=== PATIENT | female | born 1960 | race Caucasian/White ===

== ENCOUNTER 2017-03-10 18:02 | Inpatient (IN) | payer OTHER ==
[~2017-03-10] VITALS: Ht 152.4 cm; Wt 81.6 kg
--- NOTE | 2017-03-10 20:22 | PHYS DOC ---
Past Medical History Past Medical History: Diabetes-Type II, High Cholesterol, Hypertension, Other Additional Past Medical Histor: cataracts Past Surgical History: No Surgical History Alcohol Use: None Drug Use: None Adult General Chief Complaint Chief Complaint: NEURO SYMPTOMS/DEFICITS HPI HPI Patient is a 56 year old F who presents with shaking to the right upper extremity. Patient states that Friday night she started having muscle spasms and shaking to just her right upper extremity. Patient denies a seizure history. Patient states she is not lose consciousness was happens. Patient has no other complaints. Friday the symptoms got better. Patient states the spasming and shaking lasted for less than a couple minutes happen 4-5 times a day. I witnessed an episode in the emergency room that lasted less than 1 minute and the right upper shoulder many was having myoclonic jerking. Patient denies any chest pain or shortness of breath. Patient has no other symptoms. Patient denies any fevers. Review of Systems Review of Systems GEN: Denies fevers, chills, sweats HEENT: Denies blurred vision, sore throat CV: Denies chest pain RESP: Denies shortness of air, cough GI: Denies n/v/d NEURO: Denies confusion, dizziness MSK: Right upper extremity shaking Current Medications Current Medications Current Medications Medications (Trade) Dose Ordered Sig/[place] Start Time Stop Time Status Last Admin Dose Admin Lidocaine/Sodium Bicarbonate (Buffered Lidocaine 1%) 20 ml 1X ONCE 03/10/17 21:15 03/10/17 21:16 DC 03/10/17 21:15 20 ML Allergies Allergies Allergies Coded Allergies Type Severity Reaction Last Updated Verified codeine Allergy Intermediate 03/10/17 Yes Uncoded Allergies Type Severity Reaction Last Updated Verified chocolate Allergy Unknown 03/10/17 Physical Exam Physical Exam GEN.: No apparent distress. Alert and oriented. HEENT: Head is normocephalic, atraumatic NECK: Supple. LUNGS: CTAB. HEART: RRR, S1, S2 present. Peripheral pulses intact ABDOMEN: Soft, nontender. Positive bowel sounds, abscess to the left flank EXTREMITIES: Without any cyanosis. NEUROLOGIC: Normal speech, normal tone, cranial nerves II through XII are grossly intact without any focal neurological deficits, finger to nose normal bilaterally, heel to martell normal bilaterally PSYCHIATRIC: Normal affect, normal mood. SKIN: No ulcerations Current Patient Data Vital Signs Vital Signs Date Time Temp Pulse Resp B/P (MAP) Pulse Ox O2 Delivery O2 Flow Rate FiO2 03/10/17 21:16 64 19 201/87 (125) 96 Room Air 03/10/17 18:46 98.0 98.0 Lab Values Laboratory Tests Test 03/10/17 19:57 White Blood Count 6.6 x10^3/uL (4.0-11.0) Red Blood Count 3.73 x10^6/uL (3.50-5.40) Hemoglobin 9.9 g/dL (12.0-15.5) L Hematocrit 30.7 % (36.0-47.0) L Mean Corpuscular Volume 82 fL (79-100) Mean Corpuscular Hemoglobin 27 pg (25-35) Mean Corpuscular Hemoglobin Concent 32 g/dL (31-37) Red Cell Distribution Width 14.9 % (11.5-14.5) H Platelet Count 471 x10^3/uL (140-400) H Neutrophils (%) (Auto) 71 % (31-73) Lymphocytes (%) (Auto) 22 % (24-48) L Monocytes (%) (Auto) 4 % (0-9) Eosinophils (%) (Auto) 2 % (0-3) Basophils (%) (Auto) 1 % (0-3) Neutrophils # (Auto) 4.7 x10^3uL (1.8-7.7) Lymphocytes # (Auto) 1.4 x10^3/uL (1.0-4.8) Monocytes # (Auto) 0.3 x10^3/uL (0.0-1.1) Eosinophils # (Auto) 0.2 x10^3/uL (0.0-0.7) Basophils # (Auto) 0.1 x10^3/uL (0.0-0.2) Sodium Level 129 mmol/L (136-145) L Potassium Level 3.3 mmol/L (3.5-5.1) L Chloride Level 95 mmol/L (98-107) L Carbon Dioxide Level 24 mmol/L (21-32) Anion Gap 10 (6-14) Blood Urea Nitrogen 22 mg/dL (7-20) H Creatinine 2.5 mg/dL (0.6-1.0) H Estimated GFR (Cockcroft-Gault) 20.0 BUN/Creatinine Ratio 9 (6-20) Glucose Level 778 mg/dL (70-99) *H Calcium Level 8.1 mg/dL (8.5-10.1) L Total Bilirubin 0.2 mg/dL (0.2-1.0) Aspartate Amino Transferase (AST) 7 U/L (15-37) L Alanine Aminotransferase (ALT) 11 U/L (14-59) L Alkaline Phosphatase 191 U/L (46-116) H Total Protein 7.3 g/dL (6.4-8.2) Albumin 2.1 g/dL (3.4-5.0) L Albumin/Globulin Ratio 0.4 (1.0-1.7) L Ethyl Alcohol Level < 10 mg/dL (0-10) Laboratory Tests 03/10/17 19:57 Laboratory Tests 03/10/17 19:57 EKG EKG 2050: EKG shows normal sinus rhythm rate is 63 no STEMI[] Radiology/Procedures Radiology/Procedures CT scan of the head is negative Indication: abscess Procedure: The patient was positioned appropriately. Local anesthesia was 1% lidocaine approximately 5 ML's. An incision was then made over the apex of the lesion and purulent drainage material was expressed. The drainage cavity was irrigated. The patients tetanus status updated as needed. The patient tolerated the procedure well. Complications: none.[] Course & Med Decision Making Course & Med Decision Making Pertinent Labs and Imaging studies reviewed. (See chart for details) ED course: Patient was seen and examined emergency room CBC, CMP, troponin, CT scan of head , EKG were ordered, UA 2100: Patient was updated on lab results and plan to admit for the elevated glucose and the abscess will be I&D 2114: Discussed CC/HP/PMH with Dr. Davis and recommends admit [] 2199: I&D done at bedside MDM: After reviewing the chart, CC/HPI/PMH, physical exam, [lab results], [ radiological results], I do not believe the patient is in DKA however has elevated blood sugars requiring admission the hospital. We'll bring on the blood sugar with IV fluids. Patient had a bedside I&D done for an abscess to her left flank. She'll be started on oral Bactrim for the abscess. [] Dragon Disclaimer Dragon Disclaimer This electronic medical record was generated, in whole or in part, using a voice recognition dictation system. Departure Departure Impression: Primary Impression: Hyperglycemia Additional Impressions: Acute renal failure Skin abscess Disposition: 09 ADMITTED INPATIENT Admitting Physician: Marian Rosales Condition: STABLE Referrals: MARIAN ROSALES MD (PCP) Problem Qualifiers SHANNAN MOYER DO Mar 10, 2017 20:22
[2017-03-10 20:24] LABS: BASO # 0.1 x10^3/uL (0.0-0.2); BASO % 1 % (0-3); EOS % 2 % (0-3); HEMATOCRIT 30.7 % (36.0-47.0); HEMOGLOBIN 9.9 g/dL (12.0-15.5); LYMPH # 1.4 x10^3/uL (1.0-4.8); LYMPH % 22 % (24-48); MEAN CORPUSCULAR HEMOGLOBIN 27 pg (25-35); MEAN CORPUSCULAR HGB CONC 32 g/dL (31-37); MEAN CORPUSCULAR VOLUME 82 fL (79-100); MONO % 4 % (0-9); NEUT % 71 % (31-73); PLATELET COUNT 471 x10^3/uL (140-400); RED BLOOD COUNT 3.73 x10^6/uL (3.50-5.40); RED CELL DISTRIBUTION WIDTH 14.9 % (11.5-14.5); WHITE BLOOD COUNT 6.6 x10^3/uL (4.0-11.0)
--- NOTE | 2017-03-10 20:47 | RAD ---
Indication: Hypertension, shaking Technique: Noncontrast CT head was obtained. No comparison is available. One or more of the following individualized dose reduction techniques were utilized for this examination: 1. Automated exposure control 2. Adjustment of the mA and/or kV according to patient size 3. Use of iterative reconstruction technique Findings: The ventricles and sulci are within normal limits for age. There is no acute intracranial hemorrhage or extra-axial fluid collection. There is no mass effect or midline shift. Wright-white differentiation is preserved. Vascular calcifications are noted. There is opacification of the left frontal sinus. IMPRESSION: No acute intracranial findings. Electronically signed by: Nathaniel Boudreaux MD (03/10/2017 8:44 PM) [facility]
[2017-03-10 20:49] LABS: ALBUMIN 2.1 g/dL (3.4-5.0); ALBUMIN/GLOBULIN RATIO 0.4 (1.0-1.7); CALCIUM 8.1 mg/dL (8.5-10.1); CREATININE 2.5 mg/dL (0.6-1.0); POTASSIUM 3.3 mmol/L (3.5-5.1); TOTAL BILIRUBIN 0.2 mg/dL (0.2-1.0); TOTAL PROTEIN 7.3 g/dL (6.4-8.2)
[2017-03-10] MEDS ORDERED: LIDOCAINE 1% / SOD BICARB 8.4% 20 ML VIAL. IJ ONE (21:15)
[2017-03-10] MEDS ORDERED: MORPHINE SULFATE 4 MG/ML DISP.SYRIN. IV PRN (21:30)
[2017-03-10] MEDS ORDERED: ONDANSETRON PF 4 MG/2 ML VIAL. IV PRN (21:30)
[2017-03-10] MEDS ORDERED: IV NORMAL SALINE 1000ML BAG 1,000 ML IV ONE ×2 (21:30)
[2017-03-10] MEDS ORDERED: SMZ/TMP 800/160MG TABLET. PO ONE (21:30)
[2017-03-10] MEDS ORDERED: ACETAMINOPHEN 325 MG TABLET. PO PRN (21:30)
[2017-03-10] MEDS: IV NORMAL SALINE 1000ML BAG 1,000 ML IV SCH (22:00)
[2017-03-11] VITALS (12 sets, daily range): BP systolic 128–170; BP diastolic 46–72
[2017-03-11] MEDS ORDERED: INSULIN REGULAR VIAL 150 UNIT in 0.9 % SODIUM CHLORIDE 150ML 150 ML IV PRN (00:30)
[2017-03-11] MEDS ORDERED: ATOR40TA59 PO (00:36)
[2017-03-11] MEDS ORDERED: INSU100V31 SQ (00:36)
[2017-03-11] MEDS ORDERED: AMLO10TA2 PO (00:36)
[2017-03-11] MEDS ORDERED: LISI40TA PO (00:36)
[2017-03-11] MEDS ORDERED: ATEN50TA PO (00:36)
[2017-03-11] MEDS ORDERED: INSU100I13 SQ (00:36)
[2017-03-11] MEDS ORDERED: POTASSIUM CHLORIDE 20 MEQ TABLET.ER. PO ONE (00:45)
[2017-03-11] MEDS: IV NORMAL SALINE 1000ML BAG 1,000 ML IV SCH ×5 (03:12→21:32)
--- NOTE | 2017-03-11 07:03 | EKG ---
[facility] [address] [place] [address] Test Date: 2017-03-10 Test Time: 20:46:37 Pat Name: THIEN ESCOBAR Department: Room: [facility] Gender: F Chuck Splitter: : 1960 Requested By: SHANNAN MOYER Order Number: [id number] Reading MD: Albin Washington Measurements Intervals [place] Rate: 63 P: 37 NC: 168 QRS: -24 QRSD: 88 T: 24 QT: 434 QTc: 447 Interpretive Statements SINUS RHYTHM LEFTWARD AXIS R-S TRANSITION ZONE IN V LEADS DISPLACED TO THE LEFT QRS(T) CONTOUR ABNORMALITY CONSIDER ANTEROSEPTAL MYOCARDIAL DAMAGE RI6.01 Unconfirmed report No previous ECG available for comparison Electronically Signed On 03-21-2017 12:36:58 CDT by Albin Washington
[2017-03-11 07:59] LABS: CALCIUM 7.6 mg/dL (8.5-10.1); CREATININE 2.3 mg/dL (0.6-1.0)
[2017-03-11] MEDS: INSULIN ASPART 300 UNITS/3 ML INSULN.PEN SQ SCH ×6 (08:00→17:33)
[2017-03-11] MEDS ORDERED: DEXTROSE 50% 25 GM / 50ML DISP.SYRIN. IV PRN (08:00)
[2017-03-11 08:02] LABS: BASO % 1 % (0-3); EOS % 3 % (0-3); HEMATOCRIT 27.3 % (36.0-47.0); LYMPH # 2.6 x10^3/uL (1.0-4.8); LYMPH % 38 % (24-48); MEAN CORPUSCULAR HEMOGLOBIN 26 pg (25-35); MEAN CORPUSCULAR HGB CONC 33 g/dL (31-37); MEAN CORPUSCULAR VOLUME 80 fL (79-100); MONO % 6 % (0-9); NEUT % 52 % (31-73); PLATELET COUNT 444 x10^3/uL (140-400); RED BLOOD COUNT 3.42 x10^6/uL (3.50-5.40); RED CELL DISTRIBUTION WIDTH 14.8 % (11.5-14.5); WHITE BLOOD COUNT 6.8 x10^3/uL (4.0-11.0)
[2017-03-11 08:07] LABS: POTASSIUM 2.8 mmol/L (3.5-5.1)
--- NOTE | 2017-03-11 10:08 | PDOC ---
PROGRESS NOTES Subjective Subjective Patient reports feeling better than at admission. Objective Objective Vital Signs Date Time Temp Pulse Resp B/P (MAP) Pulse Ox O2 Delivery O2 Flow Rate FiO2 03/11/17 08:00 Room Air 03/11/17 07:21 98.1 59 18 148/66 (93) 95 98.1 Physical Exam Abdomen: Normal bowel sounds, Soft, No tenderness Heart: Regular rate Extremities: No edema General: Alert, Oriented X3, No acute distress Lungs: Clear to auscultation Skin: Other (large abscess left lateral chest wall with purulent drainage) Assessment Assessment Problems Medical Problems: (1) Acute renal failure Status: Acute (2) Hyperglycemia Status: Acute (3) Skin abscess Status: Acute Plan Plan of Care 1. Uncontrolled DM2 - patient's blood sugar was over 700 at admission. States she has not taken her Lantus in 10 days, apparently taking some Novolog but not checking any FSBG. Improved rapidly overnight on insulin gtt, this was stopped and insulins resumed. Follow FSBG and adjust as indicated. 2. abscess left chest wall - present for at least a month. Had small I&D done in ER with some drainage. Culture pending. Suspect she needs more extensive I&D for effective drainage. Zosyn started, General Surgery consulted. 3. acute renal failure - baseline renal function is presently unknown. No previous lab on computer here and patient was new to our office last month and didn't have lab drawn yet. Some improvement overnight with IVF, will continue these and recheck in AM, renal consult if not improved enough. 4. hypokalemia - replace po and follow. 5. HTN - continue home meds except Lisinopril which will be on hold due to acute renal failure. Comment Review of Relevant I have reviewed the following items jerald (where applicable) has been applied. Labs Laboratory Tests Test 03/10/17 19:57 03/11/17 02:06 03/11/17 03:02 03/11/17 04:10 White Blood Count 6.6 x10^3/uL (4.0-11.0) Red Blood Count 3.73 x10^6/uL (3.50-5.40) Hemoglobin 9.9 g/dL (12.0-15.5) Hematocrit 30.7 % (36.0-47.0) Mean Corpuscular Volume 82 fL (79-100) Mean Corpuscular Hemoglobin 27 pg (25-35) Mean Corpuscular Hemoglobin Concent 32 g/dL (31-37) Red Cell Distribution Width 14.9 % (11.5-14.5) Platelet Count 471 x10^3/uL (140-400) Neutrophils (%) (Auto) 71 % (31-73) Lymphocytes (%) (Auto) 22 % (24-48) Monocytes (%) (Auto) 4 % (0-9) Eosinophils (%) (Auto) 2 % (0-3) Basophils (%) (Auto) 1 % (0-3) Neutrophils # (Auto) 4.7 x10^3uL (1.8-7.7) Lymphocytes # (Auto) 1.4 x10^3/uL (1.0-4.8) Monocytes # (Auto) 0.3 x10^3/uL (0.0-1.1) Eosinophils # (Auto) 0.2 x10^3/uL (0.0-0.7) Basophils # (Auto) 0.1 x10^3/uL (0.0-0.2) Sodium Level 129 mmol/L (136-145) Potassium Level 3.3 mmol/L (3.5-5.1) Chloride Level 95 mmol/L (98-107) Carbon Dioxide Level 24 mmol/L (21-32) Anion Gap 10 (6-14) Blood Urea Nitrogen 22 mg/dL (7-20) Creatinine 2.5 mg/dL (0.6-1.0) Estimated GFR (Cockcroft-Gault) 20.0 BUN/Creatinine Ratio 9 (6-20) Glucose Level 778 mg/dL (70-99) Calcium Level 8.1 mg/dL (8.5-10.1) Total Bilirubin 0.2 mg/dL (0.2-1.0) Aspartate Amino Transf (AST/SGOT) 7 U/L (15-37) Alanine Aminotransferase (ALT/SGPT) 11 U/L (14-59) Alkaline Phosphatase 191 U/L (46-116) Total Protein 7.3 g/dL (6.4-8.2) Albumin 2.1 g/dL (3.4-5.0) Albumin/Globulin Ratio 0.4 (1.0-1.7) Ethyl Alcohol Level < 10 mg/dL (0-10) Glucose (Fingerstick) 463 mg/dL (70-99) 503 mg/dL (70-99) 343 mg/dL (70-99) Test 03/11/17 05:10 03/11/17 06:01 03/11/17 06:35 03/11/17 07:05 Glucose (Fingerstick) 233 mg/dL (70-99) 151 mg/dL (70-99) 91 mg/dL (70-99) White Blood Count 6.8 x10^3/uL (4.0-11.0) Red Blood Count 3.42 x10^6/uL (3.50-5.40) Hemoglobin 9.0 g/dL (12.0-15.5) Hematocrit 27.3 % (36.0-47.0) Mean Corpuscular Volume 80 fL (79-100) Mean Corpuscular Hemoglobin 26 pg (25-35) Mean Corpuscular Hemoglobin Concent 33 g/dL (31-37) Red Cell Distribution Width 14.8 % (11.5-14.5) Platelet Count 444 x10^3/uL (140-400) Neutrophils (%) (Auto) 52 % (31-73) Lymphocytes (%) (Auto) 38 % (24-48) Monocytes (%) (Auto) 6 % (0-9) Eosinophils (%) (Auto) 3 % (0-3) Basophils (%) (Auto) 1 % (0-3) Neutrophils # (Auto) 3.6 x10^3uL (1.8-7.7) Lymphocytes # (Auto) 2.6 x10^3/uL (1.0-4.8) Monocytes # (Auto) 0.4 x10^3/uL (0.0-1.1) Eosinophils # (Auto) 0.2 x10^3/uL (0.0-0.7) Basophils # (Auto) 0.0 x10^3/uL (0.0-0.2) Sodium Level 140 mmol/L (136-145) Potassium Level 2.8 mmol/L (3.5-5.1) Chloride Level 107 mmol/L (98-107) Carbon Dioxide Level 23 mmol/L (21-32) Anion Gap 10 (6-14) Blood Urea Nitrogen 20 mg/dL (7-20) Creatinine 2.3 mg/dL (0.6-1.0) Estimated GFR (Cockcroft-Gault) 22.0 Glucose Level 116 mg/dL (70-99) Calcium Level 7.6 mg/dL (8.5-10.1) Laboratory Tests Test 03/10/17 19:57 03/11/17 02:06 03/11/17 03:02 03/11/17 04:10 White Blood Count 6.6 x10^3/uL (4.0-11.0) Red Blood Count 3.73 x10^6/uL (3.50-5.40) Hemoglobin 9.9 g/dL (12.0-15.5) Hematocrit 30.7 % (36.0-47.0) Mean Corpuscular Volume 82 fL (79-100) Mean Corpuscular Hemoglobin 27 pg (25-35) Mean Corpuscular Hemoglobin Concent 32 g/dL (31-37) Red Cell Distribution Width 14.9 % (11.5-14.5) Platelet Count 471 x10^3/uL (140-400) Neutrophils (%) (Auto) 71 % (31-73) Lymphocytes (%) (Auto) 22 % (24-48) Monocytes (%) (Auto) 4 % (0-9) Eosinophils (%) (Auto) 2 % (0-3) Basophils (%) (Auto) 1 % (0-3) Neutrophils # (Auto) 4.7 x10^3uL (1.8-7.7) Lymphocytes # (Auto) 1.4 x10^3/uL (1.0-4.8) Monocytes # (Auto) 0.3 x10^3/uL (0.0-1.1) Eosinophils # (Auto) 0.2 x10^3/uL (0.0-0.7) Basophils # (Auto) 0.1 x10^3/uL (0.0-0.2) Sodium Level 129 mmol/L (136-145) Potassium Level 3.3 mmol/L (3.5-5.1) Chloride Level 95 mmol/L (98-107) Carbon Dioxide Level 24 mmol/L (21-32) Anion Gap 10 (6-14) Blood Urea Nitrogen 22 mg/dL (7-20) Creatinine 2.5 mg/dL (0.6-1.0) Estimated GFR (Cockcroft-Gault) 20.0 BUN/Creatinine Ratio 9 (6-20) Glucose Level 778 mg/dL (70-99) Calcium Level 8.1 mg/dL (8.5-10.1) Total Bilirubin 0.2 mg/dL (0.2-1.0) Aspartate Amino Transf (AST/SGOT) 7 U/L (15-37) Alanine Aminotransferase (ALT/SGPT) 11 U/L (14-59) Alkaline Phosphatase 191 U/L (46-116) Total Protein 7.3 g/dL (6.4-8.2) Albumin 2.1 g/dL (3.4-5.0) Albumin/Globulin Ratio 0.4 (1.0-1.7) Ethyl Alcohol Level < 10 mg/dL (0-10) Glucose (Fingerstick) 463 mg/dL (70-99) 503 mg/dL (70-99) 343 mg/dL (70-99) Test 03/11/17 05:10 03/11/17 06:01 03/11/17 06:35 03/11/17 07:05 Glucose (Fingerstick) 233 mg/dL (70-99) 151 mg/dL (70-99) 91 mg/dL (70-99) White Blood Count 6.8 x10^3/uL (4.0-11.0) Red Blood Count 3.42 x10^6/uL (3.50-5.40) Hemoglobin 9.0 g/dL (12.0-15.5) Hematocrit 27.3 % (36.0-47.0) Mean Corpuscular Volume 80 fL (79-100) Mean Corpuscular Hemoglobin 26 pg (25-35) Mean Corpuscular Hemoglobin Concent 33 g/dL (31-37) Red Cell Distribution Width 14.8 % (11.5-14.5) Platelet Count 444 x10^3/uL (140-400) Neutrophils (%) (Auto) 52 % (31-73) Lymphocytes (%) (Auto) 38 % (24-48) Monocytes (%) (Auto) 6 % (0-9) Eosinophils (%) (Auto) 3 % (0-3) Basophils (%) (Auto) 1 % (0-3) Neutrophils # (Auto) 3.6 x10^3uL (1.8-7.7) Lymphocytes # (Auto) 2.6 x10^3/uL (1.0-4.8) Monocytes # (Auto) 0.4 x10^3/uL (0.0-1.1) Eosinophils # (Auto) 0.2 x10^3/uL (0.0-0.7) Basophils # (Auto) 0.0 x10^3/uL (0.0-0.2) Sodium Level 140 mmol/L (136-145) Potassium Level 2.8 mmol/L (3.5-5.1) Chloride Level 107 mmol/L (98-107) Carbon Dioxide Level 23 mmol/L (21-32) Anion Gap 10 (6-14) Blood Urea Nitrogen 20 mg/dL (7-20) Creatinine 2.3 mg/dL (0.6-1.0) Estimated GFR (Cockcroft-Gault) 22.0 Glucose Level 116 mg/dL (70-99) Calcium Level 7.6 mg/dL (8.5-10.1) Microbiology 03/10/17 Gram Stain - Final, Complete Medications Current Medications Lidocaine/Sodium Bicarbonate (Buffered Lidocaine 1%) 20 ml 1X ONCE IJ Last administered on 03/10/17 21:15; Start 03/10/17 at 21:15; Stop 03/10/17 at 21:16 ; Status DC Trimethoprim/ Sulfamethoxazole (Bactrim Ds) 1 tab ONCE ONCE PO Last administered on 03/10/17 22:00; Start 03/10/17 at 21:30; Stop 03/10/17 at 21:31 ; Status DC Ondansetron HCl (Zofran) 4 mg PRN Q8HRS PRN IV NAUSEA/VOMITING; Start 03/10/17 at 21:30; Stop 03/11/17 at 21:29 Morphine Sulfate 4 mg PRN Q2HR PRN IV PAIN; Start 03/10/17 at 21:30; Stop 03/11 at 09:38; Status DC Sodium Chloride 1,000 ml @ 150 mls/hr Q6H40M IV Last administered on 03:12; Start 03/10/17 at 21:30; Stop 03/11/17 at 21:29 Acetaminophen (Tylenol) 650 mg PRN Q4HRS PRN PO FEVER; Start 03/10/17 at 21:30 ; Stop 03/11/17 at 21:29 Sodium Chloride 1,000 ml @ 1,000 mls/hr 1X ONCE IV Last administered on 22:09; Start 03/10/17 at 21:30; Stop 03/10/17 at 22:29; Status DC Sodium Chloride 1,000 ml @ 1,000 mls/hr 1X ONCE IV Last administered on 02:23; Start 03/10/17 at 21:30; Stop 03/10/17 at 22:29; Status DC Potassium Chloride (Klor-Con) 20 meq 1X ONCE PO Last administered on 01:16; Start 03/11/17 at 00:45; Stop 03/11/17 at 00:46; Status DC Insulin Human Regular 150 unit/ Sodium Chloride 151.5 ml @ 0 mls/hr CONT PRN IV SEE I/O RECORD Last administered on 03/11/17 01:08; Start 03/11/17 at 00:30 ; Stop 03/11/17 at 07:51; Status DC Insulin Aspart (NovoLOG) 0-9 UNITS TIDWMEALS SQ ; Start 03/11/17 at 08:00 Dextrose (Dextrose 50%-Water Syringe) 12.5 gm PRN Q15MIN PRN IV SEE COMMENTS; Start 03/11/17 at 08:00 Insulin Aspart (NovoLOG) 10 units TIDAC SQ Last administered on 03/11/17 08:31 ; Start 03/11/17 at 08:00 Potassium Chloride (Klor-Con) 20 meq TID PO ; Start 03/11/17 at 09:45 Sodium Chloride 1,000 ml @ 100 mls/hr Q10H IV ; Start 03/11/17 at 09:45 Piperacillin Sod/ Tazobactam Sod 3.375 gm/Sodium Chloride 50 ml @ 100 mls/hr Q6HRS IV ; Start 03/11/17 at 12:00; Status UNV Amlodipine Besylate (Norvasc) 10 mg DAILY PO ; Start 03/12/17 at 09:00; Status UNV Atenolol (Tenormin) 50 mg DAILY PO ; Start 03/12/17 at 09:00; Status UNV Atorvastatin Calcium (Lipitor) 40 mg HS PO ; Start 03/11/17 at 21:00; Status UNV Lisinopril (Prinivil) 40 mg DAILY PO ; Start 03/12/17 at 09:00; Status UNV Insulin Detemir (Levemir) 30 units QHS SQ ; Start 03/11/17 at 21:00; Status UNV Active Scripts Active Reported Lantus Solostar (Insulin Glargine,Hum.rec.anlog) 100 Unit/1 Ml Insuln.pen 25 Unit SQ HS Novolog (Insulin Aspart) 100 Unit/1 Ml Vial Unknown Dose SQ TIDWMEALS Atenolol 50 Mg Tablet 50 Mg PO DAILY Amlodipine Besylate 10 Mg Tablet 10 Mg PO DAILY Atorvastatin Calcium 40 Mg Tablet 40 Mg PO HS Lisinopril 40 Mg Tablet 40 Mg PO DAILY Vitals/I & O Vital Sign - Last 24 Hours 03/10/17 03/10/17 03/10/17 03/10/17 18:46 21:16 22:16 23:16 Temp 98.0 98.0 Pulse 74 64 Resp 18 19 20 20 B/P (MAP) 211/93 (132) 201/87 (125) 179/78 (111) 196/85 (122) Pulse Ox 97 96 97 96 O2 Delivery Room Air Room Air Room Air Room Air 03/11/17 03/11/17 03/11/17 03/11/17 00:06 01:31 03:00 07:21 Temp 98.1 98.0 98.1 98.1 98.0 98.1 Pulse 65 60 59 Resp 18 18 18 B/P (MAP) 170/72 (104) 144/66 (92) 148/66 (93) Pulse Ox 97 97 95 O2 Delivery Room Air Room Air Room Air Room Air 03/11/17 08:00 O2 Delivery Room Air AMENA PAUL MD Mar 11, 2017 10:08
[2017-03-11] MEDS ORDERED: amLODIPine BESYLATE 10 MG TABLET PO SCH ×2 (10:15→10:30)
[2017-03-11] MEDS: PIPERACILLIN/TAZOBACTAM 2.25 GM in IV NORMAL SALINE 50ML 50 ML IV SCH ×2 (10:30→17:21)
[2017-03-11] MEDS ORDERED: LISINOPRIL 40 MG TABLET. PO SCH (10:30)
[2017-03-11] MEDS ORDERED: ATENOLOL 50 MG TABLET. PO SCH (10:30)
[2017-03-11] MEDS: POTASSIUM CHLORIDE 20 MEQ TABLET.ER. PO SCH ×3 (10:33→17:29)
--- NOTE | 2017-03-11 10:52 | HP ---
ADMIT DATE: 03/11/2017 CHIEF COMPLAINT: Muscle spasms. HISTORY OF PRESENT ILLNESS: The patient is a 56-year-old female with insulin-dependent diabetes, who reported to the Emergency Room with the above complaint. She reported a several-day history of some intermittent shaking to her upper extremity. She denied a history of seizure disorder. She denied any loss of consciousness with these symptoms. Initial evaluation in the Emergency Room showed the patient to have a blood sugar of 778. She was also in acute renal failure and had a large abscess on the left chest wall. Treatment was initiated and she was admitted for further treatment. PAST MEDICAL HISTORY: Diabetes mellitus type 2, insulin dependent; hypertension and hyperlipidemia. PAST SURGICAL HISTORY: None on chart. ALLERGIES: THE PATIENT IS ALLERGIC TO CODEINE. HOME MEDICATIONS: Amlodipine 10 mg daily; atenolol 50 mg daily; atorvastatin 40 mg daily; lisinopril 40 mg daily; Lantus insulin 25 units at bedtime, the patient has not taken this for at least 10 days and NovoLog insulin 15 units with each meal. FAMILY HISTORY: Noncontributory. SOCIAL HISTORY: The patient is . She does not smoke cigarettes or drink alcohol. REVIEW OF SYSTEMS: The patient denies fever or chills. She denies cough or shortness of breath. She denies chest pain or palpitations. She denies abdominal pain, nausea or vomiting. She denies lower extremity edema. She has had a sore on her left chest wall for at least 1 month. When seen in our office last month, it was small and she was given 7 days of amoxicillin. She reports that she took this, but the sore continued to get worse and there was some intermittent drainage associated with it. The patient states she has not been checking her fingersticks at home as she does not have a meter or test strips presently. PHYSICAL EXAMINATION: GENERAL: The patient is alert and oriented x 3, resting comfortably in bed, in no acute distress. HEENT: PERRL, EOMI. Sclerae clear. Oropharynx, mucous membranes moist. NECK: Supple, without lymphadenopathy. CHEST: Clear to auscultation, with normal respiratory effort. CARDIOVASCULAR: Regular rhythm, without murmur. ABDOMEN: Soft, nontender. Normoactive bowel sounds are present. EXTREMITIES: Without edema. SKIN: There is a large abscess on the left lateral chest wall with purulent drainage and areas of firm induration. ASSESSMENT AND PLAN: 1. Uncontrolled diabetes mellitus type 2. The patient's blood sugar was over 700 at admission due to noncompliance with her insulin. She improved rapidly overnight on an insulin drip. This was stopped this morning and subcutaneous insulin was resumed. We will follow her fingersticks and adjust her dose as indicated. 2. Abscess, left chest wall. This has been present for at least a month, but appears much worse than when seen in the office. A small I and D was performed in the Emergency Room. There is apparently a wound culture from this pending. Suspect that she needs a more extensive I and D for effective drainage. We have started her on Zosyn and a consult with General Surgery is pending. 3. Acute renal failure. The patient's baseline renal function is presently unknown as there was no previous lab on the hospital chart and she had not done lab in our office yet. The patient reports that she was told by her previous doctor that she had some decrease in her renal function. She does not know any lab values. Her creatinine was 2.5 at admission. It has improved overnight to 2.3. We will continue IV fluids for hydration and follow her labs. We will consult renal in the morning if her function is not improved significantly with IV fluids. 4. Hypokalemia. The patient's potassium is low at 2.8. We will replace this orally and follow her lab. 5. Hypertension. Continue home medications, except lisinopril, which will be on hold due to her renal failure. AMENA PAUL MD DR: SERENITY/dominick JOB#: [id number] / [id number] FAVIOLA
[2017-03-11] MEDS ORDERED: IV RINGERS,LACTATED 1000ML 1,000 ML IV SCH (11:23)
[2017-03-11] MEDS ORDERED: fentaNYL PF VIAL 100 MCG/2 ML VIAL IV PRN ×2 (11:30)
[2017-03-11] MEDS ORDERED: ONDANSETRON PF 4 MG/2 ML VIAL. IV PRN (11:30)
[2017-03-11] MEDS ORDERED: MORPHINE SULFATE 2 MG/ML DISP.SYRIN. IV PRN (11:30)
[2017-03-11] MEDS ORDERED: PROCHLORPERAZINE 10 MG/2 ML VIAL. IV PRN (11:30)
[2017-03-11] MEDS ORDERED: LIDOCAINE 1% PF 2 ML VIAL. ID PRN (11:30)
[2017-03-11] MEDS ORDERED: HYDROmorphone 2 MG/ML VIAL IV PRN (11:30)
[2017-03-11] MEDS ORDERED: PIPERACILLIN/TAZOBACTAM 3.375 GM in IV NORMAL SALINE 50ML 50 ML IV SCH (12:00)
[2017-03-11] MEDS ORDERED: SURGICEL HEMOSTAT 4X8 EACH. ONE (13:54)
[2017-03-11] MEDS ORDERED: SEVOFLURANE 61 TO 120 MINUTES. IH ONE (14:14)
[2017-03-11] MEDS ORDERED: MIDAZOLAM HCL/PF 2 MG/2 ML VIAL. ONE (14:14)
[2017-03-11] MEDS ORDERED: fentaNYL PF VIAL 100 MCG/2 ML VIAL ONE (14:14)
[2017-03-11] MEDS ORDERED: DEXAMETHASONE SOD PHOS 20 MG/5 ML VIAL. ONE (14:15)
[2017-03-11] MEDS ORDERED: PROPOFOL 20 ML IV ONE (14:15)
[2017-03-11] MEDS ORDERED: ONDANSETRON PF 4 MG/2 ML VIAL. ONE (14:15)
[2017-03-11] MEDS ORDERED: NEOMY/BACITR/POLYMYXIN OINT PACKET. TP ONE (14:20)
[2017-03-11] MEDS ORDERED: LIDOCAINE 2% PF Vial for OR 5 ML VIAL. ONE (14:26)
[2017-03-11] MEDS ORDERED: LABETALOL 20 MG/4 ML DISP.SYRIN. ONE (14:31)
--- NOTE | 2017-03-11 14:40 | PDOC2 ---
CONSULT Date of Consult Date of Consult DATE: 03/11/17 TIME: 11:30 Reason for Consult Reason for Consult: left flank abscess Referring Physician Referring Physician: Dr Rosales Identification/Chief Complaint Chief Complaint left flank pain Problems: Source Source: Chart review, Patient History of Present Illness Reason for Visit: Madelaine is a 56 yo insulin dependent diabetic who presented to the ED with c/o of muscle spasms. She was found to have a blood sugar of 778 and to be in acute renal failure. She also has an abscess on her left flank, which we are asked to evaluate. She denies any similar episodes in the past Past Medical History Cardiovascular: HTN Pulmonary: No pertinent hx Endocrine: Diabetes Past Surgical History Past Surgical History: No pertinent history Family History Family History: No Significant Social History No Current Problem List Problem List Problems Medical Problems: (1) Acute renal failure Status: Acute (2) Hyperglycemia Status: Acute (3) Skin abscess Status: Acute Current Medications Current Medications Current Medications Lidocaine/Sodium Bicarbonate (Buffered Lidocaine 1%) 20 ml 1X ONCE IJ Last administered on 03/10/17 21:15; Start 03/10/17 at 21:15; Stop 03/10/17 at 21:16 ; Status DC Trimethoprim/ Sulfamethoxazole (Bactrim Ds) 1 tab ONCE ONCE PO Last administered on 03/10/17 22:00; Start 03/10/17 at 21:30; Stop 03/10/17 at 21:31 ; Status DC Ondansetron HCl (Zofran) 4 mg PRN Q8HRS PRN IV NAUSEA/VOMITING; Start 03/10/17 at 21:30; Stop 03/11/17 at 21:29 Morphine Sulfate 4 mg PRN Q2HR PRN IV PAIN; Start 03/10/17 at 21:30; Stop 03/11 at 09:38; Status DC Sodium Chloride 1,000 ml @ 150 mls/hr Q6H40M IV Last administered on 03:12; Start 03/10/17 at 21:30; Stop 03/11/17 at 10:52; Status DC Acetaminophen (Tylenol) 650 mg PRN Q4HRS PRN PO FEVER; Start 03/10/17 at 21:30 ; Stop 03/11/17 at 21:29 Sodium Chloride 1,000 ml @ 1,000 mls/hr 1X ONCE IV Last administered on 22:09; Start 03/10/17 at 21:30; Stop 03/10/17 at 22:29; Status DC Sodium Chloride 1,000 ml @ 1,000 mls/hr 1X ONCE IV Last administered on 02:23; Start 03/10/17 at 21:30; Stop 03/10/17 at 22:29; Status DC Potassium Chloride (Klor-Con) 20 meq 1X ONCE PO Last administered on 01:16; Start 03/11/17 at 00:45; Stop 03/11/17 at 00:46; Status DC Insulin Human Regular 150 unit/ Sodium Chloride 151.5 ml @ 0 mls/hr CONT PRN IV SEE I/O RECORD Last administered on 03/11/17 01:08; Start 03/11/17 at 00:30 ; Stop 03/11/17 at 07:51; Status DC Insulin Aspart (NovoLOG) 0-9 UNITS TIDWMEALS SQ ; Start 03/11/17 at 08:00 Dextrose (Dextrose 50%-Water Syringe) 12.5 gm PRN Q15MIN PRN IV SEE COMMENTS; Start 03/11/17 at 08:00 Insulin Aspart (NovoLOG) 10 units TIDAC SQ Last administered on 03/11/17 08:31 ; Start 03/11/17 at 08:00 Potassium Chloride (Klor-Con) 20 meq TID PO Last administered on 03/11/17 10: 33; Start 03/11/17 at 09:45 Sodium Chloride 1,000 ml @ 100 mls/hr Q10H IV Last administered on 03/11/17 09:45; Start 03/11/17 at 09:45 Piperacillin Sod/ Tazobactam Sod 3.375 gm/Sodium Chloride 50 ml @ 100 mls/hr Q6HRS IV ; Start 03/11/17 at 12:00; Status UNV Amlodipine Besylate (Norvasc) 10 mg DAILY PO ; Start 03/11/17 at 10:30; Stop at 10:50; Status DC Atenolol (Tenormin) 50 mg DAILY PO ; Start 03/11/17 at 10:30; Stop 03/11/17 at 10:50; Status DC Atorvastatin Calcium (Lipitor) 40 mg HS PO ; Start 03/11/17 at 21:00 Lisinopril (Prinivil) 40 mg DAILY PO ; Start 03/11/17 at 10:30; Stop 03/11/17 at 10:30; Status DC Insulin Detemir (Levemir) 30 units QHS SQ ; Start 03/11/17 at 21:00 Amlodipine Besylate (Norvasc) 10 mg DAILY PO ; Start 03/11/17 at 10:15; Status Cancel Piperacillin Sod/ Tazobactam Sod 2.25 gm/Sodium Chloride 50 ml @ 100 mls/hr Q6HRS IV Last administered on 03/11/17 10:30; Start 03/11/17 at 10:30 Amlodipine Besylate (Norvasc) 10 mg QHS PO ; Start 03/11/17 at 21:00 Atenolol (Tenormin) 50 mg QHS PO ; Start 03/11/17 at 21:00 Ondansetron HCl (Zofran) 4 mg PRN Q6HRS PRN IV NAUSEA/VOMITING; Start 03/11/17 at 11:30; Stop 03/12/17 at 11:29 Fentanyl Citrate (Fentanyl 2ml Vial) 25 mcg PRN Q5MIN PRN IV MILD PAIN; Start 03/11/17 at 11:30; Stop 03/12/17 at 11:29 Fentanyl Citrate (Fentanyl 2ml Vial) 50 mcg PRN Q5MIN PRN IV MODERATE PAIN; Start 03/11/17 at 11:30; Stop 03/12/17 at 11:29 Morphine Sulfate 1 mg PRN Q10MIN PRN IV SEVERE PAIN; Start 03/11/17 at 11:30; Stop 03/12/17 at 11:29; Status UNV Ringer's Solution 1,000 ml @ 30 mls/hr Q24H IV Last administered on 03/11/17t 13:46; Start 03/11/17 at 11:23; Stop 03/11/17 at 23:22 Lidocaine HCl (Xylocaine-Mpf 1% Vial) 2 ml 1X PRN PRN ID IV START; Start at 11:30; Stop 03/12/17 at 11:29 Hydromorphone HCl (Dilaudid) 0.5 mg PRN Q10MIN PRN IV SEV PAIN, Second choice; Start 03/11/17 at 11:30; Stop 03/12/17 at 11:29; Status UNV Prochlorperazine Edisylate (Compazine) 5 mg PACU PRN PRN IV NAUSEA, MRX1; Start 03/11/17 at 11:30; Stop 03/12/17 at 11:29 Sevoflurane (Ultane) 60 ml STK-MED ONCE IH ; Start 03/11/17 at 14:14; Stop 03/11 at 14:15; Status DC Midazolam HCl (Versed) 2 mg STK-MED ONCE .ROUTE ; Start 03/11/17 at 14:14; Stop 03/11/17 at 14:15; Status DC Fentanyl Citrate (Fentanyl 2ml Vial) 100 mcg STK-MED ONCE .ROUTE ; Start at 14:14; Stop 03/11/17 at 14:15; Status DC Propofol 20 ml @ As Directed STK-MED ONCE IV ; Start 03/11/17 at 14:15; Stop at 14:16; Status DC Ondansetron HCl (Zofran) 4 mg STK-MED ONCE .ROUTE ; Start 03/11/17 at 14:15; Stop 03/11/17 at 14:16; Status DC Dexamethasone Sodium Phosphate (Decadron) 20 mg STK-MED ONCE .ROUTE ; Start at 14:15; Stop 03/11/17 at 14:16; Status DC Lidocaine HCl (Lidocaine Pf 2% Vial) 5 ml STK-MED ONCE .ROUTE ; Start 03/11/17 at 14:26; Stop 03/11/17 at 14:27; Status DC Labetalol HCl (Normodyne) 20 mg STK-MED ONCE .ROUTE ; Start 03/11/17 at 14:31; Stop 03/11/17 at 14:32; Status DC Active Scripts Active Reported Lantus Solostar (Insulin Glargine,Hum.rec.anlog) 100 Unit/1 Ml Insuln.pen 25 Unit SQ HS Novolog (Insulin Aspart) 100 Unit/1 Ml Vial Unknown Dose SQ TIDWMEALS Atenolol 50 Mg Tablet 50 Mg PO DAILY Amlodipine Besylate 10 Mg Tablet 10 Mg PO DAILY Atorvastatin Calcium 40 Mg Tablet 40 Mg PO HS Lisinopril 40 Mg Tablet 40 Mg PO DAILY Allergies Allergies: Coded Allergies: codeine (Verified Allergy, Intermediate, 03/10/17) Uncoded Allergies: chocolate (Allergy, Unknown, 03/10/17) ROS Review of System negative with exception of present complaints Physical Exam General: Alert, Oriented X3, Cooperative, No acute distress HEENT: Atraumatic, EOMI Lungs: Clear to auscultation, Normal air movement Heart: Regular rate Abdomen: Soft, Other (obese, on the left flank is an area of erythema, drainage , induration) Vitals VITALS Vital Signs Date Time Temp Pulse Resp B/P (MAP) Pulse Ox O2 Delivery O2 Flow Rate FiO2 03/11/17 13:35 98.2 65 18 187/80 97 Room Air 98.2 Labs Labs Laboratory Tests Test 03/10/17 19:57 03/11/17 02:06 03/11/17 03:02 03/11/17 04:10 White Blood Count 6.6 x10^3/uL (4.0-11.0) Red Blood Count 3.73 x10^6/uL (3.50-5.40) Hemoglobin 9.9 g/dL (12.0-15.5) Hematocrit 30.7 % (36.0-47.0) Mean Corpuscular Volume 82 fL (79-100) Mean Corpuscular Hemoglobin 27 pg (25-35) Mean Corpuscular Hemoglobin Concent 32 g/dL (31-37) Red Cell Distribution Width 14.9 % (11.5-14.5) Platelet Count 471 x10^3/uL (140-400) Neutrophils (%) (Auto) 71 % (31-73) Lymphocytes (%) (Auto) 22 % (24-48) Monocytes (%) (Auto) 4 % (0-9) Eosinophils (%) (Auto) 2 % (0-3) Basophils (%) (Auto) 1 % (0-3) Neutrophils # (Auto) 4.7 x10^3uL (1.8-7.7) Lymphocytes # (Auto) 1.4 x10^3/uL (1.0-4.8) Monocytes # (Auto) 0.3 x10^3/uL (0.0-1.1) Eosinophils # (Auto) 0.2 x10^3/uL (0.0-0.7) Basophils # (Auto) 0.1 x10^3/uL (0.0-0.2) Sodium Level 129 mmol/L (136-145) Potassium Level 3.3 mmol/L (3.5-5.1) Chloride Level 95 mmol/L (98-107) Carbon Dioxide Level 24 mmol/L (21-32) Anion Gap 10 (6-14) Blood Urea Nitrogen 22 mg/dL (7-20) Creatinine 2.5 mg/dL (0.6-1.0) Estimated GFR (Cockcroft-Gault) 20.0 BUN/Creatinine Ratio 9 (6-20) Glucose Level 778 mg/dL (70-99) Calcium Level 8.1 mg/dL (8.5-10.1) Total Bilirubin 0.2 mg/dL (0.2-1.0) Aspartate Amino Transf (AST/SGOT) 7 U/L (15-37) Alanine Aminotransferase (ALT/SGPT) 11 U/L (14-59) Alkaline Phosphatase 191 U/L (46-116) Total Protein 7.3 g/dL (6.4-8.2) Albumin 2.1 g/dL (3.4-5.0) Albumin/Globulin Ratio 0.4 (1.0-1.7) Ethyl Alcohol Level < 10 mg/dL (0-10) Glucose (Fingerstick) 463 mg/dL (70-99) 503 mg/dL (70-99) 343 mg/dL (70-99) Test 03/11/17 05:10 03/11/17 06:01 03/11/17 06:35 03/11/17 07:05 Glucose (Fingerstick) 233 mg/dL (70-99) 151 mg/dL (70-99) 91 mg/dL (70-99) White Blood Count 6.8 x10^3/uL (4.0-11.0) Red Blood Count 3.42 x10^6/uL (3.50-5.40) Hemoglobin 9.0 g/dL (12.0-15.5) Hematocrit 27.3 % (36.0-47.0) Mean Corpuscular Volume 80 fL (79-100) Mean Corpuscular Hemoglobin 26 pg (25-35) Mean Corpuscular Hemoglobin Concent 33 g/dL (31-37) Red Cell Distribution Width 14.8 % (11.5-14.5) Platelet Count 444 x10^3/uL (140-400) Neutrophils (%) (Auto) 52 % (31-73) Lymphocytes (%) (Auto) 38 % (24-48) Monocytes (%) (Auto) 6 % (0-9) Eosinophils (%) (Auto) 3 % (0-3) Basophils (%) (Auto) 1 % (0-3) Neutrophils # (Auto) 3.6 x10^3uL (1.8-7.7) Lymphocytes # (Auto) 2.6 x10^3/uL (1.0-4.8) Monocytes # (Auto) 0.4 x10^3/uL (0.0-1.1) Eosinophils # (Auto) 0.2 x10^3/uL (0.0-0.7) Basophils # (Auto) 0.0 x10^3/uL (0.0-0.2) Sodium Level 140 mmol/L (136-145) Potassium Level 2.8 mmol/L (3.5-5.1) Chloride Level 107 mmol/L (98-107) Carbon Dioxide Level 23 mmol/L (21-32) Anion Gap 10 (6-14) Blood Urea Nitrogen 20 mg/dL (7-20) Creatinine 2.3 mg/dL (0.6-1.0) Estimated GFR (Cockcroft-Gault) 22.0 Glucose Level 116 mg/dL (70-99) Calcium Level 7.6 mg/dL (8.5-10.1) Test 03/11/17 11:55 Glucose (Fingerstick) 198 mg/dL (70-99) Laboratory Tests Test 03/10/17 19:57 03/11/17 02:06 03/11/17 03:02 03/11/17 04:10 White Blood Count 6.6 x10^3/uL (4.0-11.0) Red Blood Count 3.73 x10^6/uL (3.50-5.40) Hemoglobin 9.9 g/dL (12.0-15.5) Hematocrit 30.7 % (36.0-47.0) Mean Corpuscular Volume 82 fL (79-100) Mean Corpuscular Hemoglobin 27 pg (25-35) Mean Corpuscular Hemoglobin Concent 32 g/dL (31-37) Red Cell Distribution Width 14.9 % (11.5-14.5) Platelet Count 471 x10^3/uL (140-400) Neutrophils (%) (Auto) 71 % (31-73) Lymphocytes (%) (Auto) 22 % (24-48) Monocytes (%) (Auto) 4 % (0-9) Eosinophils (%) (Auto) 2 % (0-3) Basophils (%) (Auto) 1 % (0-3) Neutrophils # (Auto) 4.7 x10^3uL (1.8-7.7) Lymphocytes # (Auto) 1.4 x10^3/uL (1.0-4.8) Monocytes # (Auto) 0.3 x10^3/uL (0.0-1.1) Eosinophils # (Auto) 0.2 x10^3/uL (0.0-0.7) Basophils # (Auto) 0.1 x10^3/uL (0.0-0.2) Sodium Level 129 mmol/L (136-145) Potassium Level 3.3 mmol/L (3.5-5.1) Chloride Level 95 mmol/L (98-107) Carbon Dioxide Level 24 mmol/L (21-32) Anion Gap 10 (6-14) Blood Urea Nitrogen 22 mg/dL (7-20) Creatinine 2.5 mg/dL (0.6-1.0) Estimated GFR (Cockcroft-Gault) 20.0 BUN/Creatinine Ratio 9 (6-20) Glucose Level 778 mg/dL (70-99) Calcium Level 8.1 mg/dL (8.5-10.1) Total Bilirubin 0.2 mg/dL (0.2-1.0) Aspartate Amino Transf (AST/SGOT) 7 U/L (15-37) Alanine Aminotransferase (ALT/SGPT) 11 U/L (14-59) Alkaline Phosphatase 191 U/L (46-116) Total Protein 7.3 g/dL (6.4-8.2) Albumin 2.1 g/dL (3.4-5.0) Albumin/Globulin Ratio 0.4 (1.0-1.7) Ethyl Alcohol Level < 10 mg/dL (0-10) Glucose (Fingerstick) 463 mg/dL (70-99) 503 mg/dL (70-99) 343 mg/dL (70-99) Test 03/11/17 05:10 03/11/17 06:01 03/11/17 06:35 03/11/17 07:05 Glucose (Fingerstick) 233 mg/dL (70-99) 151 mg/dL (70-99) 91 mg/dL (70-99) White Blood Count 6.8 x10^3/uL (4.0-11.0) Red Blood Count 3.42 x10^6/uL (3.50-5.40) Hemoglobin 9.0 g/dL (12.0-15.5) Hematocrit 27.3 % (36.0-47.0) Mean Corpuscular Volume 80 fL (79-100) Mean Corpuscular Hemoglobin 26 pg (25-35) Mean Corpuscular Hemoglobin Concent 33 g/dL (31-37) Red Cell Distribution Width 14.8 % (11.5-14.5) Platelet Count 444 x10^3/uL (140-400) Neutrophils (%) (Auto) 52 % (31-73) Lymphocytes (%) (Auto) 38 % (24-48) Monocytes (%) (Auto) 6 % (0-9) Eosinophils (%) (Auto) 3 % (0-3) Basophils (%) (Auto) 1 % (0-3) Neutrophils # (Auto) 3.6 x10^3uL (1.8-7.7) Lymphocytes # (Auto) 2.6 x10^3/uL (1.0-4.8) Monocytes # (Auto) 0.4 x10^3/uL (0.0-1.1) Eosinophils # (Auto) 0.2 x10^3/uL (0.0-0.7) Basophils # (Auto) 0.0 x10^3/uL (0.0-0.2) Sodium Level 140 mmol/L (136-145) Potassium Level 2.8 mmol/L (3.5-5.1) Chloride Level 107 mmol/L (98-107) Carbon Dioxide Level 23 mmol/L (21-32) Anion Gap 10 (6-14) Blood Urea Nitrogen 20 mg/dL (7-20) Creatinine 2.3 mg/dL (0.6-1.0) Estimated GFR (Cockcroft-Gault) 22.0 Glucose Level 116 mg/dL (70-99) Calcium Level 7.6 mg/dL (8.5-10.1) Test 03/11/17 11:55 Glucose (Fingerstick) 198 mg/dL (70-99) Assessment/Plan Assessment/Plan IDDM, poorly controlled ARF abscess left flank for I and D will follow Thanks for consult! TIMBO CARROLL MD Mar 11, 2017 14:40
[2017-03-11] MEDS ORDERED: ePHEDrine PF IN SALINE 50 MG/5 ML DISP.SYRIN IV ONE (14:56)
--- NOTE | 2017-03-11 15:14 | PDOC ---
BRIEF OPERATIVE NOTE Date: Mar 11, 2017 Pre-Op Diagnosis abscess, left flank Post-Op Diagnosis same Procedure Performed sharp debridement of skin and subcutaneous tissue Surgeon Williams Anesthesia Type: General Blood Loss 25cc IV Fluid 200cc Specimens Obtained skin and subcutaneous tissue for path, cultures of the wound Findings tunnel between the two skin openings Complications none OPerative Note Wk # [id number] TIMBO CARROLL MD Mar 11, 2017 15:14
--- NOTE | 2017-03-11 15:40 | OP ---
DATE OF SURGERY: 03/11/2017 PREOPERATIVE DIAGNOSIS: Abscess, left flank. POSTOPERATIVE DIAGNOSIS: Abscess, left flank. PROCEDURE: Sharp debridement of skin and subcutaneous tissue abscess, left flank. SURGEON: Ajay Carroll MD. ANESTHESIA: General LMA. ESTIMATED BLOOD LOSS: 25 mL. INTRAVENOUS FLUIDS: 200 mL. INDICATIONS: The patient is a 56-year-old obese, insulin-dependent diabetic with an abscess along the left flank here for unroofing. DESCRIPTION OF PROCEDURE: The patient brought to the operating suite, given a general LMA and placed in right lateral decubitus position. The area was prepped and draped in usual sterile fashion. The 2 points of drainage were connected by a subcutaneous tunnel. This was unroofed by excising skin and subcutaneous tissue. The wound was cultured, irrigated and checked for adequate hemostasis. When present and a correct sponge count was obtained, the wound was dressed with Surgicel, antibiotic ointment, 1-inch plain NuGauze soaked in saline, 4 x 4's and Mediport tape. The patient taken out of the lateral decubitus position, awakened from her anesthetic and taken to the recovery room in satisfactory condition. AJAY CARROLL MD DR: NIRAJ/dominick JOB#: [id number] / [id number] ENA Langford MD
[2017-03-11] MEDS ORDERED: INSULIN ASPART 100 UNIT/ML 10ML VIAL. SQ ONE ×2 (15:55→16:15)
[2017-03-11] MEDS ORDERED: INSULIN DETEMIR 300 UNITS/3 ML INSULN.PEN. SQ SCH (21:00)
[2017-03-11] MEDS: ATORVASTATIN CALCIUM 40 MG TABLET. PO SCH (21:32)
[2017-03-11] MEDS: amLODIPine BESYLATE 10 MG TABLET PO SCH (21:32)
[2017-03-11] MEDS: ATENOLOL 50 MG TABLET. PO SCH (21:33)
[2017-03-11] MEDS ORDERED: INSULIN ASPART 300 UNITS/3 ML INSULN.PEN SQ ONE (21:45)
[2017-03-12] MEDS: PIPERACILLIN/TAZOBACTAM 2.25 GM in IV NORMAL SALINE 50ML 50 ML IV SCH ×4 (00:26→17:26)
[2017-03-12 02:36] VITALS: BP 145/62
[2017-03-12] MEDS: IV NORMAL SALINE 1000ML BAG 1,000 ML IV SCH ×2 (05:44→17:26)
[2017-03-12 06:56] LABS: CALCIUM 8.2 mg/dL (8.5-10.1); CREATININE 2.6 mg/dL (0.6-1.0); GFR 19.1; POTASSIUM 4.7 mmol/L (3.5-5.1)
[2017-03-12 07:00] VITALS: BP 159/61
[2017-03-12 07:03] LABS: CHOLESTEROL/HDL RATIO 4.5
[2017-03-12] MEDS: POTASSIUM CHLORIDE 20 MEQ TABLET.ER. PO SCH (08:00)
[2017-03-12] MEDS: INSULIN ASPART 300 UNITS/3 ML INSULN.PEN SQ SCH ×6 (08:00→17:35)
--- NOTE | 2017-03-12 09:06 | PDOC ---
PROGRESS NOTES Subjective Subjective Patient without complaint, not much pain on side. Objective Objective Vital Signs Date Time Temp Pulse Resp B/P (MAP) Pulse Ox O2 Delivery O2 Flow Rate FiO2 03/12/17 07:00 98.3 63 18 159/61 (93) 97 Room Air 98.3 Physical Exam Abdomen: Normal bowel sounds, Soft, No tenderness Heart: Regular rate Extremities: No edema General: Alert, Oriented X3, No acute distress Lungs: Clear to auscultation Skin: Other (dressing in place left flank) Assessment Assessment Problems Medical Problems: (1) Acute renal failure Status: Acute (2) Hyperglycemia Status: Acute (3) Skin abscess Status: Acute Plan Plan of Care 1. Uncontrolled DM2 - FSBG still high, increase insulins and follow. 2. acute renal failure - lab not improved with IVF, will consult renal. K+ much improved, will d/c po replacement. 3. abscess left flank - appreciate I&D by Dr Kramer yesterday. Continue Zosyn and wound care. 4. HTN - generally controlled, continue present meds, Lisinopril on hold due to renal failure. 5. hyperlipidemia - lipids mildly elevated on lab, patient now reports she had been out of her Atorvastatin for some time. Continue daily. Comment Review of Relevant I have reviewed the following items jerald (where applicable) has been applied. Labs Laboratory Tests Test 03/10/17 19:57 03/11/17 02:06 03/11/17 03:02 03/11/17 04:10 White Blood Count 6.6 x10^3/uL (4.0-11.0) Red Blood Count 3.73 x10^6/uL (3.50-5.40) Hemoglobin 9.9 g/dL (12.0-15.5) Hematocrit 30.7 % (36.0-47.0) Mean Corpuscular Volume 82 fL (79-100) Mean Corpuscular Hemoglobin 27 pg (25-35) Mean Corpuscular Hemoglobin Concent 32 g/dL (31-37) Red Cell Distribution Width 14.9 % (11.5-14.5) Platelet Count 471 x10^3/uL (140-400) Neutrophils (%) (Auto) 71 % (31-73) Lymphocytes (%) (Auto) 22 % (24-48) Monocytes (%) (Auto) 4 % (0-9) Eosinophils (%) (Auto) 2 % (0-3) Basophils (%) (Auto) 1 % (0-3) Neutrophils # (Auto) 4.7 x10^3uL (1.8-7.7) Lymphocytes # (Auto) 1.4 x10^3/uL (1.0-4.8) Monocytes # (Auto) 0.3 x10^3/uL (0.0-1.1) Eosinophils # (Auto) 0.2 x10^3/uL (0.0-0.7) Basophils # (Auto) 0.1 x10^3/uL (0.0-0.2) Sodium Level 129 mmol/L (136-145) Potassium Level 3.3 mmol/L (3.5-5.1) Chloride Level 95 mmol/L (98-107) Carbon Dioxide Level 24 mmol/L (21-32) Anion Gap 10 (6-14) Blood Urea Nitrogen 22 mg/dL (7-20) Creatinine 2.5 mg/dL (0.6-1.0) Estimated GFR (Cockcroft-Gault) 20.0 BUN/Creatinine Ratio 9 (6-20) Glucose Level 778 mg/dL (70-99) Calcium Level 8.1 mg/dL (8.5-10.1) Total Bilirubin 0.2 mg/dL (0.2-1.0) Aspartate Amino Transf (AST/SGOT) 7 U/L (15-37) Alanine Aminotransferase (ALT/SGPT) 11 U/L (14-59) Alkaline Phosphatase 191 U/L (46-116) Total Protein 7.3 g/dL (6.4-8.2) Albumin 2.1 g/dL (3.4-5.0) Albumin/Globulin Ratio 0.4 (1.0-1.7) Ethyl Alcohol Level < 10 mg/dL (0-10) Glucose (Fingerstick) 463 mg/dL (70-99) 503 mg/dL (70-99) 343 mg/dL (70-99) Test 03/11/17 05:10 03/11/17 06:01 03/11/17 06:35 03/11/17 07:05 Glucose (Fingerstick) 233 mg/dL (70-99) 151 mg/dL (70-99) 91 mg/dL (70-99) White Blood Count 6.8 x10^3/uL (4.0-11.0) Red Blood Count 3.42 x10^6/uL (3.50-5.40) Hemoglobin 9.0 g/dL (12.0-15.5) Hematocrit 27.3 % (36.0-47.0) Mean Corpuscular Volume 80 fL (79-100) Mean Corpuscular Hemoglobin 26 pg (25-35) Mean Corpuscular Hemoglobin Concent 33 g/dL (31-37) Red Cell Distribution Width 14.8 % (11.5-14.5) Platelet Count 444 x10^3/uL (140-400) Neutrophils (%) (Auto) 52 % (31-73) Lymphocytes (%) (Auto) 38 % (24-48) Monocytes (%) (Auto) 6 % (0-9) Eosinophils (%) (Auto) 3 % (0-3) Basophils (%) (Auto) 1 % (0-3) Neutrophils # (Auto) 3.6 x10^3uL (1.8-7.7) Lymphocytes # (Auto) 2.6 x10^3/uL (1.0-4.8) Monocytes # (Auto) 0.4 x10^3/uL (0.0-1.1) Eosinophils # (Auto) 0.2 x10^3/uL (0.0-0.7) Basophils # (Auto) 0.0 x10^3/uL (0.0-0.2) Sodium Level 140 mmol/L (136-145) Potassium Level 2.8 mmol/L (3.5-5.1) Chloride Level 107 mmol/L (98-107) Carbon Dioxide Level 23 mmol/L (21-32) Anion Gap 10 (6-14) Blood Urea Nitrogen 20 mg/dL (7-20) Creatinine 2.3 mg/dL (0.6-1.0) Estimated GFR (Cockcroft-Gault) 22.0 Glucose Level 116 mg/dL (70-99) Calcium Level 7.6 mg/dL (8.5-10.1) Test 03/11/17 11:55 03/11/17 15:18 03/11/17 16:57 03/11/17 20:47 Glucose (Fingerstick) 198 mg/dL (70-99) 236 mg/dL (70-99) 289 mg/dL (70-99) 353 mg/dL (70-99) Test 03/12/17 06:10 03/12/17 07:23 Sodium Level 135 mmol/L (136-145) Potassium Level 4.7 mmol/L (3.5-5.1) Chloride Level 105 mmol/L (98-107) Carbon Dioxide Level 21 mmol/L (21-32) Anion Gap 9 (6-14) Blood Urea Nitrogen 23 mg/dL (7-20) Creatinine 2.6 mg/dL (0.6-1.0) Estimated GFR (Cockcroft-Gault) 19.1 Glucose Level 355 mg/dL (70-99) Calcium Level 8.2 mg/dL (8.5-10.1) Triglycerides Level 139 mg/dL (0-150) Cholesterol Level 199 mg/dL (0-200) LDL Cholesterol, Calculated 127 mg/dL (0-100) VLDL Cholesterol, Calculated 28 mg/dL (0-40) Non-HDL Cholesterol Calculated 155 mg/dL (0-129) HDL Cholesterol 44 mg/dL (40-60) Cholesterol/HDL Ratio 4.5 Glucose (Fingerstick) 346 mg/dL (70-99) Laboratory Tests Test 03/11/17 11:55 03/11/17 15:18 03/11/17 16:57 03/11/17 20:47 Glucose (Fingerstick) 198 mg/dL (70-99) 236 mg/dL (70-99) 289 mg/dL (70-99) 353 mg/dL (70-99) Test 03/12/17 06:10 03/12/17 07:23 Sodium Level 135 mmol/L (136-145) Potassium Level 4.7 mmol/L (3.5-5.1) Chloride Level 105 mmol/L (98-107) Carbon Dioxide Level 21 mmol/L (21-32) Anion Gap 9 (6-14) Blood Urea Nitrogen 23 mg/dL (7-20) Creatinine 2.6 mg/dL (0.6-1.0) Estimated GFR (Cockcroft-Gault) 19.1 Glucose Level 355 mg/dL (70-99) Calcium Level 8.2 mg/dL (8.5-10.1) Triglycerides Level 139 mg/dL (0-150) Cholesterol Level 199 mg/dL (0-200) LDL Cholesterol, Calculated 127 mg/dL (0-100) VLDL Cholesterol, Calculated 28 mg/dL (0-40) Non-HDL Cholesterol Calculated 155 mg/dL (0-129) HDL Cholesterol 44 mg/dL (40-60) Cholesterol/HDL Ratio 4.5 Glucose (Fingerstick) 346 mg/dL (70-99) Microbiology 03/10/17 Gram Stain - Final, Complete Medications Current Medications Lidocaine/Sodium Bicarbonate (Buffered Lidocaine 1%) 20 ml 1X ONCE IJ Last administered on 03/10/17 21:15; Start 03/10/17 at 21:15; Stop 03/10/17 at 21:16 ; Status DC Trimethoprim/ Sulfamethoxazole (Bactrim Ds) 1 tab ONCE ONCE PO Last administered on 03/10/17 22:00; Start 03/10/17 at 21:30; Stop 03/10/17 at 21:31 ; Status DC Ondansetron HCl (Zofran) 4 mg PRN Q8HRS PRN IV NAUSEA/VOMITING; Start 03/10/17 at 21:30; Stop 03/11/17 at 21:29; Status DC Morphine Sulfate 4 mg PRN Q2HR PRN IV PAIN; Start 03/10/17 at 21:30; Stop 03/11 at 09:38; Status DC Sodium Chloride 1,000 ml @ 150 mls/hr Q6H40M IV Last administered on 03:12; Start 03/10/17 at 21:30; Stop 03/11/17 at 10:52; Status DC Acetaminophen (Tylenol) 650 mg PRN Q4HRS PRN PO FEVER; Start 03/10/17 at 21:30 ; Stop 03/11/17 at 21:29; Status DC Sodium Chloride 1,000 ml @ 1,000 mls/hr 1X ONCE IV Last administered on 22:09; Start 03/10/17 at 21:30; Stop 03/10/17 at 22:29; Status DC Sodium Chloride 1,000 ml @ 1,000 mls/hr 1X ONCE IV Last administered on 02:23; Start 03/10/17 at 21:30; Stop 03/10/17 at 22:29; Status DC Potassium Chloride (Klor-Con) 20 meq 1X ONCE PO Last administered on 01:16; Start 03/11/17 at 00:45; Stop 03/11/17 at 00:46; Status DC Insulin Human Regular 150 unit/ Sodium Chloride 151.5 ml @ 0 mls/hr CONT PRN IV SEE I/O RECORD Last administered on 03/11/17 01:08; Start 03/11/17 at 00:30 ; Stop 03/11/17 at 07:51; Status DC Insulin Aspart (NovoLOG) 0-9 UNITS TIDWMEALS SQ Last administered on 03/11/17 17:33; Start 03/11/17 at 08:00 Dextrose (Dextrose 50%-Water Syringe) 12.5 gm PRN Q15MIN PRN IV SEE COMMENTS; Start 03/11/17 at 08:00 Insulin Aspart (NovoLOG) 10 units TIDAC SQ Last administered on 03/11/17 17:32 ; Start 03/11/17 at 08:00 Potassium Chloride (Klor-Con) 20 meq TID PO Last administered on 03/11/17 10: 33; Start 03/11/17 at 09:45; Stop 03/11/17 at 15:20; Status DC Sodium Chloride 1,000 ml @ 100 mls/hr Q10H IV Last administered on 03/12/17 05:44; Start 03/11/17 at 09:45 Piperacillin Sod/ Tazobactam Sod 3.375 gm/Sodium Chloride 50 ml @ 100 mls/hr Q6HRS IV ; Start 03/11/17 at 12:00; Status UNV Amlodipine Besylate (Norvasc) 10 mg DAILY PO ; Start 03/11/17 at 10:30; Stop at 10:50; Status DC Atenolol (Tenormin) 50 mg DAILY PO ; Start 03/11/17 at 10:30; Stop 03/11/17 at 10:50; Status DC Atorvastatin Calcium (Lipitor) 40 mg HS PO Last administered on 03/11/17 21:32 ; Start 03/11/17 at 21:00 Lisinopril (Prinivil) 40 mg DAILY PO ; Start 03/11/17 at 10:30; Stop 03/11/17 at 10:30; Status DC Insulin Detemir (Levemir) 30 units QHS SQ Last administered on 03/11/17 21:33 ; Start 03/11/17 at 21:00 Amlodipine Besylate (Norvasc) 10 mg DAILY PO ; Start 03/11/17 at 10:15; Status Cancel Piperacillin Sod/ Tazobactam Sod 2.25 gm/Sodium Chloride 50 ml @ 100 mls/hr Q6HRS IV Last administered on 03/12/17 05:44; Start 03/11/17 at 10:30 Amlodipine Besylate (Norvasc) 10 mg QHS PO Last administered on 03/11/17 21:32 ; Start 03/11/17 at 21:00 Atenolol (Tenormin) 50 mg QHS PO Last administered on 03/11/17 21:33; Start at 21:00 Ondansetron HCl (Zofran) 4 mg PRN Q6HRS PRN IV NAUSEA/VOMITING; Start 03/11/17 at 11:30; Stop 03/12/17 at 11:29 Fentanyl Citrate (Fentanyl 2ml Vial) 25 mcg PRN Q5MIN PRN IV MILD PAIN; Start 03/11/17 at 11:30; Stop 03/12/17 at 11:29 Fentanyl Citrate (Fentanyl 2ml Vial) 50 mcg PRN Q5MIN PRN IV MODERATE PAIN; Start 03/11/17 at 11:30; Stop 03/12/17 at 11:29 Morphine Sulfate 1 mg PRN Q10MIN PRN IV SEVERE PAIN; Start 03/11/17 at 11:30; Stop 03/12/17 at 11:29; Status UNV Ringer's Solution 1,000 ml @ 30 mls/hr Q24H IV Last administered on 03/11/17 13:46; Start 03/11/17 at 11:23; Stop 03/11/17 at 23:22; Status DC Lidocaine HCl (Xylocaine-Mpf 1% Vial) 2 ml 1X PRN PRN ID IV START; Start at 11:30; Stop 03/12/17 at 11:29 Hydromorphone HCl (Dilaudid) 0.5 mg PRN Q10MIN PRN IV SEV PAIN, Second choice; Start 03/11/17 at 11:30; Stop 03/12/17 at 11:29; Status UNV Prochlorperazine Edisylate (Compazine) 5 mg PACU PRN PRN IV NAUSEA, MRX1; Start 03/11/17 at 11:30; Stop 03/12/17 at 11:29 Sevoflurane (Ultane) 60 ml STK-MED ONCE IH ; Start 03/11/17 at 14:14; Stop 03/11 at 14:15; Status DC Midazolam HCl (Versed) 2 mg STK-MED ONCE .ROUTE ; Start 03/11/17 at 14:14; Stop 03/11/17 at 14:15; Status DC Fentanyl Citrate (Fentanyl 2ml Vial) 100 mcg STK-MED ONCE .ROUTE ; Start at 14:14; Stop 03/11/17 at 14:15; Status DC Propofol 20 ml @ As Directed STK-MED ONCE IV ; Start 03/11/17 at 14:15; Stop at 14:16; Status DC Ondansetron HCl (Zofran) 4 mg STK-MED ONCE .ROUTE ; Start 03/11/17 at 14:15; Stop 03/11/17 at 14:16; Status DC Dexamethasone Sodium Phosphate (Decadron) 20 mg STK-MED ONCE .ROUTE ; Start at 14:15; Stop 03/11/17 at 14:16; Status DC Lidocaine HCl (Lidocaine Pf 2% Vial) 5 ml STK-MED ONCE .ROUTE ; Start 03/11/17 at 14:26; Stop 03/11/17 at 14:27; Status DC Labetalol HCl (Normodyne) 20 mg STK-MED ONCE .ROUTE ; Start 03/11/17 at 14:31; Stop 03/11/17 at 14:32; Status DC Cellulose 1 each STK-MED ONCE .ROUTE Last administered on 03/11/17t 14:54; Start 03/11/17 at 13:54; Stop 03/11/17 at 14:54; Status DC Ephedrine Sulfate 50 mg STK-MED ONCE IV ; Start 03/11/17 at 14:56; Stop at 14:57; Status DC Neomycin/ Polymyxin/ Bacitracin (Triple Antibiotic Ointment) 1 pkt STK-MED ONCE TP ; Start 03/11/17 at 14:20; Stop 03/11/17 at 15:20; Status DC Potassium Chloride (Klor-Con) 20 meq TIDWMEALS PO Last administered on 17:29; Start 03/11/17 at 17:00 Insulin Aspart (NovoLOG VIAL) 100 unit STK-MED ONCE SQ ; Start 03/11/17 at 15:55 ; Stop 03/11/17 at 15:56; Status DC Insulin Aspart (NovoLOG VIAL) 5 unit ONCE ONCE SQ Last administered on 16:02; Start 03/11/17 at 16:15; Stop 03/11/17 at 16:16; Status DC Insulin Aspart (NovoLOG) 10 units 1X ONCE SQ Last administered on 03/11/17 21 :48; Start 03/11/17 at 21:45; Stop 03/11/17 at 21:46; Status DC Active Scripts Active Reported Lantus Solostar (Insulin Glargine,Hum.rec.anlog) 100 Unit/1 Ml Insuln.pen 25 Unit SQ HS Novolog (Insulin Aspart) 100 Unit/1 Ml Vial Unknown Dose SQ TIDWMEALS Atenolol 50 Mg Tablet 50 Mg PO DAILY Amlodipine Besylate 10 Mg Tablet 10 Mg PO DAILY Atorvastatin Calcium 40 Mg Tablet 40 Mg PO HS Lisinopril 40 Mg Tablet 40 Mg PO DAILY Vitals/I & O Vital Sign - Last 24 Hours 03/11/17 03/11/17 03/11/17 03/11/17 10:15 13:35 15:06 15:21 Temp 98.1 98.2 98.2 98.2 98.1 98.2 98.2 98.2 Pulse 61 65 74 73 Resp 18 18 15 15 B/P (MAP) 156/69 (98) 187/80 150/62 141/58 Pulse Ox 98 97 100 100 O2 Delivery Room Air Room Air Room Air Room Air Simple Mask Simple Mask 03/11/17 03/11/17 03/11/17 03/11/17 15:36 16:15 16:30 16:45 Temp 98.2 98.2 Pulse 72 72 72 73 Resp 15 B/P (MAP) 154/55 150/47 (81) 151/55 (87) 150/62 (91) Pulse Ox 97 O2 Delivery Room Air Simple Mask 03/11/17 03/11/17 03/11/17 03/11/17 17:00 17:30 17:57 19:28 Temp 97.9 97.9 Pulse 72 72 73 71 Resp 16 B/P (MAP) 144/58 (86) 147/58 (87) 151/64 (93) 128/58 (81) Pulse Ox 95 O2 Delivery Room Air 03/11/17 03/11/17 03/11/17 03/11/17 20:20 21:32 21:33 22:33 Temp 98.6 98.6 Pulse 71 71 77 Resp 16 B/P (MAP) 128/58 128/58 148/46 (80) Pulse Ox 91 O2 Delivery Room Air Room Air 03/12/17 03/12/17 02:36 07:00 Temp 98.2 98.3 98.2 98.3 Pulse 67 63 Resp 16 18 B/P (MAP) 145/62 (89) 159/61 (93) Pulse Ox 97 97 O2 Delivery Room Air Room Air AMENA PAUL MD Mar 12, 2017 09:06
[2017-03-12 11:00] VITALS: BP 146/66
--- NOTE | 2017-03-12 13:03 | PDOC2 ---
CONSULT Date of Consult Date of Consult DATE: 03/12/17 TIME: 12:57 Reason for Consult Reason for Consult: RAZIA Referring Physician Referring Physician: HUMBERTO Identification/Chief Complaint Chief Complaint MUSCLE SPASMS Problems: Source Source: Chart review, Patient History of Present Illness Reason for Visit: THIS IS A 56 YR WHOSE CHIEF COMPLAINT WAS MUSCLE SPASMS. ON INITIAL LABS HER K WAS LOW AND HER CR IS 2.6 NOW. HER BLOOD GLUCOSE WAS NEARLY 800 BUT NO ACIDOSIS NOTED. STATES THAT FOR SEVERAL DAYS SHE HAS HAD INCREASED UO. SHE HAS A LEFT CHEST WALL INFECTION AND HAS UNDERGONE I AND D JUST YESTERDAY. HAS BEEN DEALING WITH THIS INFECTION FOR ABOUT A MONTH. HAS NEVER SEEN A NEPHROLOGISTS BUT HAS BEEN TOLD BY HER PERSONAL PHYSICIAN THAT SHE HAS WEAK KIDNEYS ABOUT A YEAR AGO. BASELINE CR IS UNKNOWN TO ME. NO NSAID ABUSE HX NOTED. NO HX OF ANY KIDNEY OR BLADDER SURGERIES HEMATURIA DYSURIA OR FREQUENCY NOTED Past Medical History Cardiovascular: HTN Pulmonary: No pertinent hx Renal/: Chronic renal insuff Endocrine: Diabetes Past Surgical History Past Surgical History: No pertinent history Family History Family History: No Significant Social History No Current Problem List Problem List Problems Medical Problems: (1) Acute renal failure Status: Acute (2) Hyperglycemia Status: Acute (3) Skin abscess Status: Acute Current Medications Current Medications Current Medications Lidocaine/Sodium Bicarbonate (Buffered Lidocaine 1%) 20 ml 1X ONCE IJ Last administered on 03/10/17 21:15; Start 03/10/17 at 21:15; Stop 03/10/17 at 21:16 ; Status DC Trimethoprim/ Sulfamethoxazole (Bactrim Ds) 1 tab ONCE ONCE PO Last administered on 03/10/17 22:00; Start 03/10/17 at 21:30; Stop 03/10/17 at 21:31 ; Status DC Ondansetron HCl (Zofran) 4 mg PRN Q8HRS PRN IV NAUSEA/VOMITING; Start 03/10/17 at 21:30; Stop 03/11/17 at 21:29; Status DC Morphine Sulfate 4 mg PRN Q2HR PRN IV PAIN; Start 03/10/17 at 21:30; Stop 03/11 at 09:38; Status DC Sodium Chloride 1,000 ml @ 150 mls/hr Q6H40M IV Last administered on 03:12; Start 03/10/17 at 21:30; Stop 03/11/17 at 10:52; Status DC Acetaminophen (Tylenol) 650 mg PRN Q4HRS PRN PO FEVER; Start 03/10/17 at 21:30 ; Stop 03/11/17 at 21:29; Status DC Sodium Chloride 1,000 ml @ 1,000 mls/hr 1X ONCE IV Last administered on 22:09; Start 03/10/17 at 21:30; Stop 03/10/17 at 22:29; Status DC Sodium Chloride 1,000 ml @ 1,000 mls/hr 1X ONCE IV Last administered on 02:23; Start 03/10/17 at 21:30; Stop 03/10/17 at 22:29; Status DC Potassium Chloride (Klor-Con) 20 meq 1X ONCE PO Last administered on 01:16; Start 03/11/17 at 00:45; Stop 03/11/17 at 00:46; Status DC Insulin Human Regular 150 unit/ Sodium Chloride 151.5 ml @ 0 mls/hr CONT PRN IV SEE I/O RECORD Last administered on 03/11/17 01:08; Start 03/11/17 at 00:30 ; Stop 03/11/17 at 07:51; Status DC Insulin Aspart (NovoLOG) 0-9 UNITS TIDWMEALS SQ Last administered on 03/12/17 12:33; Start 03/11/17 at 08:00 Dextrose (Dextrose 50%-Water Syringe) 12.5 gm PRN Q15MIN PRN IV SEE COMMENTS; Start 03/11/17 at 08:00 Insulin Aspart (NovoLOG) 10 units TIDAC SQ Last administered on 03/11/17 17:32 ; Start 03/11/17 at 08:00; Stop 03/12/17 at 08:56; Status DC Potassium Chloride (Klor-Con) 20 meq TID PO Last administered on 03/11/17 10: 33; Start 03/11/17 at 09:45; Stop 03/11/17 at 15:20; Status DC Sodium Chloride 1,000 ml @ 100 mls/hr Q10H IV Last administered on 03/12/17 05:44; Start 03/11/17 at 09:45 Piperacillin Sod/ Tazobactam Sod 3.375 gm/Sodium Chloride 50 ml @ 100 mls/hr Q6HRS IV ; Start 03/11/17 at 12:00; Status UNV Amlodipine Besylate (Norvasc) 10 mg DAILY PO ; Start 03/11/17 at 10:30; Stop at 10:50; Status DC Atenolol (Tenormin) 50 mg DAILY PO ; Start 03/11/17 at 10:30; Stop 03/11/17 at 10:50; Status DC Atorvastatin Calcium (Lipitor) 40 mg HS PO Last administered on 03/11/17 21:32 ; Start 03/11/17 at 21:00 Lisinopril (Prinivil) 40 mg DAILY PO ; Start 03/11/17 at 10:30; Stop 03/11/17 at 10:30; Status DC Insulin Detemir (Levemir) 30 units QHS SQ Last administered on 03/11/17 21:33 ; Start 03/11/17 at 21:00; Stop 03/12/17 at 08:56; Status DC Amlodipine Besylate (Norvasc) 10 mg DAILY PO ; Start 03/11/17 at 10:15; Status Cancel Piperacillin Sod/ Tazobactam Sod 2.25 gm/Sodium Chloride 50 ml @ 100 mls/hr Q6HRS IV Last administered on 03/12/17 12:28; Start 03/11/17 at 10:30 Amlodipine Besylate (Norvasc) 10 mg QHS PO Last administered on 03/11/17 21:32 ; Start 03/11/17 at 21:00 Atenolol (Tenormin) 50 mg QHS PO Last administered on 03/11/17 21:33; Start at 21:00 Ondansetron HCl (Zofran) 4 mg PRN Q6HRS PRN IV NAUSEA/VOMITING; Start 03/11/17 at 11:30; Stop 03/12/17 at 11:29; Status DC Fentanyl Citrate (Fentanyl 2ml Vial) 25 mcg PRN Q5MIN PRN IV MILD PAIN; Start 03/11/17 at 11:30; Stop 03/12/17 at 08:56; Status DC Fentanyl Citrate (Fentanyl 2ml Vial) 50 mcg PRN Q5MIN PRN IV MODERATE PAIN; Start 03/11/17 at 11:30; Stop 03/12/17 at 08:56; Status DC Morphine Sulfate 1 mg PRN Q10MIN PRN IV SEVERE PAIN; Start 03/11/17 at 11:30; Stop 03/12/17 at 11:29; Status UNV Ringer's Solution 1,000 ml @ 30 mls/hr Q24H IV Last administered on 03/11/17t 13:46; Start 03/11/17 at 11:23; Stop 03/11/17 at 23:22; Status DC Lidocaine HCl (Xylocaine-Mpf 1% Vial) 2 ml 1X PRN PRN ID IV START; Start at 11:30; Stop 03/12/17 at 11:29; Status DC Hydromorphone HCl (Dilaudid) 0.5 mg PRN Q10MIN PRN IV SEV PAIN, Second choice; Start 03/11/17 at 11:30; Stop 03/12/17 at 11:29; Status UNV Prochlorperazine Edisylate (Compazine) 5 mg PACU PRN PRN IV NAUSEA, MRX1; Start 03/11/17 at 11:30; Stop 03/12/17 at 11:29; Status DC Sevoflurane (Ultane) 60 ml STK-MED ONCE IH ; Start 03/11/17 at 14:14; Stop 03/11 at 14:15; Status DC Midazolam HCl (Versed) 2 mg STK-MED ONCE .ROUTE ; Start 03/11/17 at 14:14; Stop 03/11/17 at 14:15; Status DC Fentanyl Citrate (Fentanyl 2ml Vial) 100 mcg STK-MED ONCE .ROUTE ; Start at 14:14; Stop 03/11/17 at 14:15; Status DC Propofol 20 ml @ As Directed STK-MED ONCE IV ; Start 03/11/17 at 14:15; Stop at 14:16; Status DC Ondansetron HCl (Zofran) 4 mg STK-MED ONCE .ROUTE ; Start 03/11/17 at 14:15; Stop 03/11/17 at 14:16; Status DC Dexamethasone Sodium Phosphate (Decadron) 20 mg STK-MED ONCE .ROUTE ; Start at 14:15; Stop 03/11/17 at 14:16; Status DC Lidocaine HCl (Lidocaine Pf 2% Vial) 5 ml STK-MED ONCE .ROUTE ; Start 03/11/17 at 14:26; Stop 03/11/17 at 14:27; Status DC Labetalol HCl (Normodyne) 20 mg STK-MED ONCE .ROUTE ; Start 03/11/17 at 14:31; Stop 03/11/17 at 14:32; Status DC Cellulose 1 each STK-MED ONCE .ROUTE Last administered on 03/11/17 14:54; Start 03/11/17 at 13:54; Stop 03/11/17 at 14:54; Status DC Ephedrine Sulfate 50 mg STK-MED ONCE IV ; Start 03/11/17 at 14:56; Stop at 14:57; Status DC Neomycin/ Polymyxin/ Bacitracin (Triple Antibiotic Ointment) 1 pkt STK-MED ONCE TP ; Start 03/11/17 at 14:20; Stop 03/11/17 at 15:20; Status DC Potassium Chloride (Klor-Con) 20 meq TIDWMEALS PO Last administered on 17:29; Start 03/11/17 at 17:00; Stop 03/12/17 at 08:56; Status DC Insulin Aspart (NovoLOG VIAL) 100 unit STK-MED ONCE SQ ; Start 03/11/17 at 15:55 ; Stop 03/11/17 at 15:56; Status DC Insulin Aspart (NovoLOG VIAL) 5 unit ONCE ONCE SQ Last administered on 16:02; Start 03/11/17 at 16:15; Stop 03/11/17 at 16:16; Status DC Insulin Aspart (NovoLOG) 10 units 1X ONCE SQ Last administered on 03/11/17 21 :48; Start 03/11/17 at 21:45; Stop 03/11/17 at 21:46; Status DC Insulin Aspart (NovoLOG) 20 units TIDAC SQ Last administered on 03/12/17 12:33 ; Start 03/12/17 at 11:30 Insulin Detemir (Levemir) 50 units QHS SQ ; Start 03/12/17 at 21:00 Active Scripts Active Reported Lantus Solostar (Insulin Glargine,Hum.rec.anlog) 100 Unit/1 Ml Insuln.pen 25 Unit SQ HS Novolog (Insulin Aspart) 100 Unit/1 Ml Vial Unknown Dose SQ TIDWMEALS Atenolol 50 Mg Tablet 50 Mg PO DAILY Amlodipine Besylate 10 Mg Tablet 10 Mg PO DAILY Atorvastatin Calcium 40 Mg Tablet 40 Mg PO HS Lisinopril 40 Mg Tablet 40 Mg PO DAILY Allergies Allergies: Coded Allergies: chocolate flavor (Unverified Allergy, Intermediate, Unknown, 03/11/17) codeine (Verified Allergy, Intermediate, 03/10/17) ROS General: YES: Fatigue, Appetite Eyes: Yes Blurry vision, Yes Decreased vision HEENT: YES: Heacaches Respiratory: YES: Cough Gastrointestinal: Yes Nausea Musculoskeletal: Yes Muscular Weakness, Yes Other (SPASMS) Neurological: Yes Weakness Physical Exam General: Alert, Oriented X3, Cooperative, No acute distress HEENT: Atraumatic, PERRLA Lungs: Clear to auscultation Heart: Regular rate, Normal S1, Normal S2 Abdomen: Normal bowel sounds, Soft, No tenderness Neuro: Normal speech, Cranial nerves 3-12 NL Psych/Mental Status: Mental status NL, Mood NL MUSCULOSKELETAL: No deformity, No swelling Vitals VITALS Vital Signs Date Time Temp Pulse Resp B/P (MAP) Pulse Ox O2 Delivery O2 Flow Rate FiO2 03/12/17 11:00 97.7 67 16 146/66 (92) 97 Room Air 97.7 Labs Labs Laboratory Tests Test 03/10/17 19:57 03/11/17 02:06 03/11/17 03:02 03/11/17 04:10 White Blood Count 6.6 x10^3/uL (4.0-11.0) Red Blood Count 3.73 x10^6/uL (3.50-5.40) Hemoglobin 9.9 g/dL (12.0-15.5) Hematocrit 30.7 % (36.0-47.0) Mean Corpuscular Volume 82 fL (79-100) Mean Corpuscular Hemoglobin 27 pg (25-35) Mean Corpuscular Hemoglobin Concent 32 g/dL (31-37) Red Cell Distribution Width 14.9 % (11.5-14.5) Platelet Count 471 x10^3/uL (140-400) Neutrophils (%) (Auto) 71 % (31-73) Lymphocytes (%) (Auto) 22 % (24-48) Monocytes (%) (Auto) 4 % (0-9) Eosinophils (%) (Auto) 2 % (0-3) Basophils (%) (Auto) 1 % (0-3) Neutrophils # (Auto) 4.7 x10^3uL (1.8-7.7) Lymphocytes # (Auto) 1.4 x10^3/uL (1.0-4.8) Monocytes # (Auto) 0.3 x10^3/uL (0.0-1.1) Eosinophils # (Auto) 0.2 x10^3/uL (0.0-0.7) Basophils # (Auto) 0.1 x10^3/uL (0.0-0.2) Sodium Level 129 mmol/L (136-145) Potassium Level 3.3 mmol/L (3.5-5.1) Chloride Level 95 mmol/L (98-107) Carbon Dioxide Level 24 mmol/L (21-32) Anion Gap 10 (6-14) Blood Urea Nitrogen 22 mg/dL (7-20) Creatinine 2.5 mg/dL (0.6-1.0) Estimated GFR (Cockcroft-Gault) 20.0 BUN/Creatinine Ratio 9 (6-20) Glucose Level 778 mg/dL (70-99) Calcium Level 8.1 mg/dL (8.5-10.1) Total Bilirubin 0.2 mg/dL (0.2-1.0) Aspartate Amino Transf (AST/SGOT) 7 U/L (15-37) Alanine Aminotransferase (ALT/SGPT) 11 U/L (14-59) Alkaline Phosphatase 191 U/L (46-116) Total Protein 7.3 g/dL (6.4-8.2) Albumin 2.1 g/dL (3.4-5.0) Albumin/Globulin Ratio 0.4 (1.0-1.7) Ethyl Alcohol Level < 10 mg/dL (0-10) Glucose (Fingerstick) 463 mg/dL (70-99) 503 mg/dL (70-99) 343 mg/dL (70-99) Test 03/11/17 05:10 03/11/17 06:01 03/11/17 06:35 03/11/17 07:05 Glucose (Fingerstick) 233 mg/dL (70-99) 151 mg/dL (70-99) 91 mg/dL (70-99) White Blood Count 6.8 x10^3/uL (4.0-11.0) Red Blood Count 3.42 x10^6/uL (3.50-5.40) Hemoglobin 9.0 g/dL (12.0-15.5) Hematocrit 27.3 % (36.0-47.0) Mean Corpuscular Volume 80 fL (79-100) Mean Corpuscular Hemoglobin 26 pg (25-35) Mean Corpuscular Hemoglobin Concent 33 g/dL (31-37) Red Cell Distribution Width 14.8 % (11.5-14.5) Platelet Count 444 x10^3/uL (140-400) Neutrophils (%) (Auto) 52 % (31-73) Lymphocytes (%) (Auto) 38 % (24-48) Monocytes (%) (Auto) 6 % (0-9) Eosinophils (%) (Auto) 3 % (0-3) Basophils (%) (Auto) 1 % (0-3) Neutrophils # (Auto) 3.6 x10^3uL (1.8-7.7) Lymphocytes # (Auto) 2.6 x10^3/uL (1.0-4.8) Monocytes # (Auto) 0.4 x10^3/uL (0.0-1.1) Eosinophils # (Auto) 0.2 x10^3/uL (0.0-0.7) Basophils # (Auto) 0.0 x10^3/uL (0.0-0.2) Sodium Level 140 mmol/L (136-145) Potassium Level 2.8 mmol/L (3.5-5.1) Chloride Level 107 mmol/L (98-107) Carbon Dioxide Level 23 mmol/L (21-32) Anion Gap 10 (6-14) Blood Urea Nitrogen 20 mg/dL (7-20) Creatinine 2.3 mg/dL (0.6-1.0) Estimated GFR (Cockcroft-Gault) 22.0 Glucose Level 116 mg/dL (70-99) Calcium Level 7.6 mg/dL (8.5-10.1) Test 9/26/17 11:55 03/11/17 15:18 03/11/17 16:57 03/11/17 20:47 Glucose (Fingerstick) 198 mg/dL (70-99) 236 mg/dL (70-99) 289 mg/dL (70-99) 353 mg/dL (70-99) Test 03/12/17 06:10 03/12/17 07:23 03/12/17 12:04 Sodium Level 135 mmol/L (136-145) Potassium Level 4.7 mmol/L (3.5-5.1) Chloride Level 105 mmol/L (98-107) Carbon Dioxide Level 21 mmol/L (21-32) Anion Gap 9 (6-14) Blood Urea Nitrogen 23 mg/dL (7-20) Creatinine 2.6 mg/dL (0.6-1.0) Estimated GFR (Cockcroft-Gault) 19.1 Glucose Level 355 mg/dL (70-99) Calcium Level 8.2 mg/dL (8.5-10.1) Triglycerides Level 139 mg/dL (0-150) Cholesterol Level 199 mg/dL (0-200) LDL Cholesterol, Calculated 127 mg/dL (0-100) VLDL Cholesterol, Calculated 28 mg/dL (0-40) Non-HDL Cholesterol Calculated 155 mg/dL (0-129) HDL Cholesterol 44 mg/dL (40-60) Cholesterol/HDL Ratio 4.5 Glucose (Fingerstick) 346 mg/dL (70-99) 373 mg/dL (70-99) Laboratory Tests Test 03/11/17 15:18 03/11/17 16:57 03/11/17 20:47 03/12/17 06:10 Glucose (Fingerstick) 236 mg/dL (70-99) 289 mg/dL (70-99) 353 mg/dL (70-99) Sodium Level 135 mmol/L (136-145) Potassium Level 4.7 mmol/L (3.5-5.1) Chloride Level 105 mmol/L (98-107) Carbon Dioxide Level 21 mmol/L (21-32) Anion Gap 9 (6-14) Blood Urea Nitrogen 23 mg/dL (7-20) Creatinine 2.6 mg/dL (0.6-1.0) Estimated GFR (Cockcroft-Gault) 19.1 Glucose Level 355 mg/dL (70-99) Calcium Level 8.2 mg/dL (8.5-10.1) Triglycerides Level 139 mg/dL (0-150) Cholesterol Level 199 mg/dL (0-200) LDL Cholesterol, Calculated 127 mg/dL (0-100) VLDL Cholesterol, Calculated 28 mg/dL (0-40) Non-HDL Cholesterol Calculated 155 mg/dL (0-129) HDL Cholesterol 44 mg/dL (40-60) Cholesterol/HDL Ratio 4.5 Test 03/12/17 07:23 03/12/17 12:04 Glucose (Fingerstick) 346 mg/dL (70-99) 373 mg/dL (70-99) Assessment/Plan Assessment/Plan IMP RAZIA WITH CR OF 2.5 CKD PROB STAGE 3-BASELINE NOT KNOW DEHYDRATION HYPERGLYCEMIA HYPONATREMIA LEFT CHEST WALL ABSCESS S/P I AND D DM II HTN PLAN IVF'S ANTIBIOTICS HOLD HER HOME MED LISINOPRIL LABS IN AM YANIQUE HAQUE MD Mar 12, 2017 13:03
[2017-03-12 14:44] VITALS: BP 158/57
[2017-03-12 19:35] VITALS: BP 178/61
[2017-03-12] MEDS ORDERED: INSULIN DETEMIR 300 UNITS/3 ML INSULN.PEN. SQ SCH (21:00)
[2017-03-12] MEDS: ATORVASTATIN CALCIUM 40 MG TABLET. PO SCH (21:36)
[2017-03-12] MEDS: amLODIPine BESYLATE 10 MG TABLET PO SCH (21:36)
[2017-03-12] MEDS: ATENOLOL 50 MG TABLET. PO SCH (21:37)
[2017-03-12 23:48] VITALS: BP 154/61
[2017-03-13] MEDS: PIPERACILLIN/TAZOBACTAM 2.25 GM in IV NORMAL SALINE 50ML 50 ML IV SCH ×4 (01:18→17:30)
[2017-03-13] MEDS: IV NORMAL SALINE 1000ML BAG 1,000 ML IV SCH ×3 (01:18→20:21)
[2017-03-13 03:48] VITALS: BP 138/61
[2017-03-13 07:09] LABS: CALCIUM 7.4 mg/dL (8.5-10.1); CREATININE 2.7 mg/dL (0.6-1.0); GFR 18.3; POTASSIUM 4.3 mmol/L (3.5-5.1)
[2017-03-13 07:20] LABS: MAGNESIUM 1.8 mg/dL (1.8-2.4); PHOSPHORUS 3.9 mg/dL (2.6-4.7)
[2017-03-13 07:40] VITALS: BP 133/60
[2017-03-13] MEDS: INSULIN ASPART 300 UNITS/3 ML INSULN.PEN SQ SCH ×5 (08:00→17:35)
--- NOTE | 2017-03-13 08:13 | PDOC ---
PROGRESS NOTES Subjective Subjective Patient without complaint, denies pain in wound. Objective Objective Vital Signs Date Time Temp Pulse Resp B/P (MAP) Pulse Ox O2 Delivery O2 Flow Rate FiO2 03/13/17 03:48 97.8 53 16 138/61 (86) 94 Room Air 97.8 Physical Exam Abdomen: Normal bowel sounds, Soft, No tenderness Heart: Regular rate Extremities: No edema General: Alert, Oriented X3, No acute distress Lungs: Clear to auscultation Skin: Other (wound vac in place left flank, scant erythema surrounding) Assessment Assessment Problems Medical Problems: (1) Acute renal failure Status: Acute (2) Hyperglycemia Status: Acute (3) Skin abscess Status: Acute Plan Plan of Care 1. Uncontrolled DM2 - blood sugars much better, now a little low this AM, will decrease insulins and follow FSBG. 2. acute renal failure with CKD - lab stable but not improved. Continue IVF and tx as per Renal. 3. abscess left flank - agree with wound vac. Continue Zosyn, preliminary culture shows Staph, await sensitivities. 4. HTN - BP remaining mildly elevated without the Lisinopril. Continue her other meds and add Clonidine. Comment Review of Relevant I have reviewed the following items jerald (where applicable) has been applied. Labs Laboratory Tests Test 03/11/17 11:55 03/11/17 15:18 03/11/17 16:57 03/11/17 20:47 Glucose (Fingerstick) 198 mg/dL (70-99) 236 mg/dL (70-99) 289 mg/dL (70-99) 353 mg/dL (70-99) Test 03/12/17 06:10 03/12/17 07:23 03/12/17 12:04 03/12/17 17:22 Sodium Level 135 mmol/L (136-145) Potassium Level 4.7 mmol/L (3.5-5.1) Chloride Level 105 mmol/L (98-107) Carbon Dioxide Level 21 mmol/L (21-32) Anion Gap 9 (6-14) Blood Urea Nitrogen 23 mg/dL (7-20) Creatinine 2.6 mg/dL (0.6-1.0) Estimated GFR (Cockcroft-Gault) 19.1 Glucose Level 355 mg/dL (70-99) Calcium Level 8.2 mg/dL (8.5-10.1) Triglycerides Level 139 mg/dL (0-150) Cholesterol Level 199 mg/dL (0-200) LDL Cholesterol, Calculated 127 mg/dL (0-100) VLDL Cholesterol, Calculated 28 mg/dL (0-40) Non-HDL Cholesterol Calculated 155 mg/dL (0-129) HDL Cholesterol 44 mg/dL (40-60) Cholesterol/HDL Ratio 4.5 Glucose (Fingerstick) 346 mg/dL (70-99) 373 mg/dL (70-99) 198 mg/dL (70-99) Test 03/12/17 21:20 03/13/17 05:20 03/13/17 07:31 Glucose (Fingerstick) 165 mg/dL (70-99) 77 mg/dL (70-99) Sodium Level 140 mmol/L (136-145) Potassium Level 4.3 mmol/L (3.5-5.1) Chloride Level 110 mmol/L (98-107) Carbon Dioxide Level 21 mmol/L (21-32) Anion Gap 9 (6-14) Blood Urea Nitrogen 28 mg/dL (7-20) Creatinine 2.7 mg/dL (0.6-1.0) Estimated GFR (Cockcroft-Gault) 18.3 Glucose Level 87 mg/dL (70-99) Calcium Level 7.4 mg/dL (8.5-10.1) Phosphorus Level 3.9 mg/dL (2.6-4.7) Magnesium Level 1.8 mg/dL (1.8-2.4) Laboratory Tests Test 03/12/17 12:04 03/12/17 17:22 03/12/17 21:20 03/13/17 05:20 Glucose (Fingerstick) 373 mg/dL (70-99) 198 mg/dL (70-99) 165 mg/dL (70-99) Sodium Level 140 mmol/L (136-145) Potassium Level 4.3 mmol/L (3.5-5.1) Chloride Level 110 mmol/L (98-107) Carbon Dioxide Level 21 mmol/L (21-32) Anion Gap 9 (6-14) Blood Urea Nitrogen 28 mg/dL (7-20) Creatinine 2.7 mg/dL (0.6-1.0) Estimated GFR (Cockcroft-Gault) 18.3 Glucose Level 87 mg/dL (70-99) Calcium Level 7.4 mg/dL (8.5-10.1) Phosphorus Level 3.9 mg/dL (2.6-4.7) Magnesium Level 1.8 mg/dL (1.8-2.4) Test 03/13/17 07:31 Glucose (Fingerstick) 77 mg/dL (70-99) Microbiology 03/11/17 Gram Stain - Final, Complete Medications Current Medications Lidocaine/Sodium Bicarbonate (Buffered Lidocaine 1%) 20 ml 1X ONCE IJ Last administered on 03/10/17 21:15; Start 03/10/17 at 21:15; Stop 03/10/17 at 21:16 ; Status DC Trimethoprim/ Sulfamethoxazole (Bactrim Ds) 1 tab ONCE ONCE PO Last administered on 03/10/17 22:00; Start 03/10/17 at 21:30; Stop 03/10/17 at 21:31 ; Status DC Ondansetron HCl (Zofran) 4 mg PRN Q8HRS PRN IV NAUSEA/VOMITING; Start 03/10/17 at 21:30; Stop 03/11/17 at 21:29; Status DC Morphine Sulfate 4 mg PRN Q2HR PRN IV PAIN; Start 03/10/17 at 21:30; Stop 03/11 at 09:38; Status DC Sodium Chloride 1,000 ml @ 150 mls/hr Q6H40M IV Last administered on 03:12; Start 03/10/17 at 21:30; Stop 03/11/17 at 10:52; Status DC Acetaminophen (Tylenol) 650 mg PRN Q4HRS PRN PO FEVER; Start 03/10/17 at 21:30 ; Stop 03/11/17 at 21:29; Status DC Sodium Chloride 1,000 ml @ 1,000 mls/hr 1X ONCE IV Last administered on 22:09; Start 03/10/17 at 21:30; Stop 03/10/17 at 22:29; Status DC Sodium Chloride 1,000 ml @ 1,000 mls/hr 1X ONCE IV Last administered on 02:23; Start 03/10/17 at 21:30; Stop 03/10/17 at 22:29; Status DC Potassium Chloride (Klor-Con) 20 meq 1X ONCE PO Last administered on 01:16; Start 03/11/17 at 00:45; Stop 03/11/17 at 00:46; Status DC Insulin Human Regular 150 unit/ Sodium Chloride 151.5 ml @ 0 mls/hr CONT PRN IV SEE I/O RECORD Last administered on 03/11/17 01:08; Start 03/11/17 at 00:30 ; Stop 03/11/17 at 07:51; Status DC Insulin Aspart (NovoLOG) 0-9 UNITS TIDWMEALS SQ Last administered on 03/12/17 17:34; Start 03/11/17 at 08:00 Dextrose (Dextrose 50%-Water Syringe) 12.5 gm PRN Q15MIN PRN IV SEE COMMENTS; Start 03/11/17 at 08:00 Insulin Aspart (NovoLOG) 10 units TIDAC SQ Last administered on 03/12/17 08:00 ; Start 03/11/17 at 08:00; Stop 03/12/17 at 08:56; Status DC Potassium Chloride (Klor-Con) 20 meq TID PO Last administered on 03/11/17 10: 33; Start 03/11/17 at 09:45; Stop 03/11/17 at 15:20; Status DC Sodium Chloride 1,000 ml @ 100 mls/hr Q10H IV Last administered on 03/13/17 01:18; Start 03/11/17 at 09:45 Piperacillin Sod/ Tazobactam Sod 3.375 gm/Sodium Chloride 50 ml @ 100 mls/hr Q6HRS IV ; Start 03/11/17 at 12:00; Status UNV Amlodipine Besylate (Norvasc) 10 mg DAILY PO ; Start 03/11/17 at 10:30; Stop at 10:50; Status DC Atenolol (Tenormin) 50 mg DAILY PO ; Start 03/11/17 at 10:30; Stop 03/11/17 at 10:50; Status DC Atorvastatin Calcium (Lipitor) 40 mg HS PO Last administered on 03/12/17 21:36 ; Start 03/11/17 at 21:00 Lisinopril (Prinivil) 40 mg DAILY PO ; Start 03/11/17 at 10:30; Stop 03/11/17 at 10:30; Status DC Insulin Detemir (Levemir) 30 units QHS SQ Last administered on 03/11/17 21:33 ; Start 03/11/17 at 21:00; Stop 03/12/17 at 08:56; Status DC Amlodipine Besylate (Norvasc) 10 mg DAILY PO ; Start 03/11/17 at 10:15; Status Cancel Piperacillin Sod/ Tazobactam Sod 2.25 gm/Sodium Chloride 50 ml @ 100 mls/hr Q6HRS IV Last administered on 03/13/17 05:39; Start 03/11/17 at 10:30 Amlodipine Besylate (Norvasc) 10 mg QHS PO Last administered on 03/12/17 21:36 ; Start 03/11/17 at 21:00 Atenolol (Tenormin) 50 mg QHS PO Last administered on 03/12/17 21:37; Start at 21:00 Ondansetron HCl (Zofran) 4 mg PRN Q6HRS PRN IV NAUSEA/VOMITING; Start 03/11/17 at 11:30; Stop 03/12/17 at 11:29; Status DC Fentanyl Citrate (Fentanyl 2ml Vial) 25 mcg PRN Q5MIN PRN IV MILD PAIN; Start 03/11/17 at 11:30; Stop 03/12/17 at 08:56; Status DC Fentanyl Citrate (Fentanyl 2ml Vial) 50 mcg PRN Q5MIN PRN IV MODERATE PAIN; Start 03/11/17 at 11:30; Stop 03/12/17 at 08:56; Status DC Morphine Sulfate 1 mg PRN Q10MIN PRN IV SEVERE PAIN; Start 03/11/17 at 11:30; Stop 03/12/17 at 11:29; Status UNV Ringer's Solution 1,000 ml @ 30 mls/hr Q24H IV Last administered on 03/11/17 13:46; Start 03/11/17 at 11:23; Stop 03/11/17 at 23:22; Status DC Lidocaine HCl (Xylocaine-Mpf 1% Vial) 2 ml 1X PRN PRN ID IV START; Start at 11:30; Stop 03/12/17 at 11:29; Status DC Hydromorphone HCl (Dilaudid) 0.5 mg PRN Q10MIN PRN IV SEV PAIN, Second choice; Start 03/11/17 at 11:30; Stop 03/12/17 at 11:29; Status UNV Prochlorperazine Edisylate (Compazine) 5 mg PACU PRN PRN IV NAUSEA, MRX1; Start 03/11/17 at 11:30; Stop 03/12/17 at 11:29; Status DC Sevoflurane (Ultane) 60 ml STK-MED ONCE IH ; Start 03/11/17 at 14:14; Stop 03/11 at 14:15; Status DC Midazolam HCl (Versed) 2 mg STK-MED ONCE .ROUTE ; Start 03/11/17 at 14:14; Stop 03/11/17 at 14:15; Status DC Fentanyl Citrate (Fentanyl 2ml Vial) 100 mcg STK-MED ONCE .ROUTE ; Start at 14:14; Stop 03/11/17 at 14:15; Status DC Propofol 20 ml @ As Directed STK-MED ONCE IV ; Start 03/11/17 at 14:15; Stop at 14:16; Status DC Ondansetron HCl (Zofran) 4 mg STK-MED ONCE .ROUTE ; Start 03/11/17 at 14:15; Stop 03/11/17 at 14:16; Status DC Dexamethasone Sodium Phosphate (Decadron) 20 mg STK-MED ONCE .ROUTE ; Start at 14:15; Stop 03/11/17 at 14:16; Status DC Lidocaine HCl (Lidocaine Pf 2% Vial) 5 ml STK-MED ONCE .ROUTE ; Start 03/11/17 at 14:26; Stop 03/11/17 at 14:27; Status DC Labetalol HCl (Normodyne) 20 mg STK-MED ONCE .ROUTE ; Start 03/11/17 at 14:31; Stop 03/11/17 at 14:32; Status DC Cellulose 1 each STK-MED ONCE .ROUTE Last administered on 03/11/17t 14:54; Start 03/11/17 at 13:54; Stop 03/11/17 at 14:54; Status DC Ephedrine Sulfate 50 mg STK-MED ONCE IV ; Start 03/11/17 at 14:56; Stop at 14:57; Status DC Neomycin/ Polymyxin/ Bacitracin (Triple Antibiotic Ointment) 1 pkt STK-MED ONCE TP ; Start 03/11/17 at 14:20; Stop 03/11/17 at 15:20; Status DC Potassium Chloride (Klor-Con) 20 meq TIDWMEALS PO Last administered on 08:00; Start 03/11/17 at 17:00; Stop 03/12/17 at 08:56; Status DC Insulin Aspart (NovoLOG VIAL) 100 unit STK-MED ONCE SQ ; Start 03/11/17 at 15:55 ; Stop 03/11/17 at 15:56; Status DC Insulin Aspart (NovoLOG VIAL) 5 unit ONCE ONCE SQ Last administered on 16:02; Start 03/11/17 at 16:15; Stop 03/11/17 at 16:16; Status DC Insulin Aspart (NovoLOG) 10 units 1X ONCE SQ Last administered on 03/11/17 21 :48; Start 03/11/17 at 21:45; Stop 03/11/17 at 21:46; Status DC Insulin Aspart (NovoLOG) 20 units TIDAC SQ Last administered on 03/12/17 17:35 ; Start 03/12/17 at 11:30 Insulin Detemir (Levemir) 50 units QHS SQ Last administered on 03/12/17 22:02 ; Start 03/12/17 at 21:00 Active Scripts Active Reported Lantus Solostar (Insulin Glargine,Hum.rec.anlog) 100 Unit/1 Ml Insuln.pen 25 Unit SQ HS Novolog (Insulin Aspart) 100 Unit/1 Ml Vial Unknown Dose SQ TIDWMEALS Atenolol 50 Mg Tablet 50 Mg PO DAILY Amlodipine Besylate 10 Mg Tablet 10 Mg PO DAILY Atorvastatin Calcium 40 Mg Tablet 40 Mg PO HS Lisinopril 40 Mg Tablet 40 Mg PO DAILY Vitals/I & O Vital Sign - Last 24 Hours 03/12/17 03/12/17 03/12/17 03/12/17 11:00 14:44 19:35 20:20 Temp 97.7 97.5 98.4 97.7 97.5 98.4 Pulse 67 71 69 Resp 16 18 16 B/P (MAP) 146/66 (92) 158/57 (90) 178/61 (100) Pulse Ox 97 96 97 O2 Delivery Room Air Room Air Room Air Room Air 03/12/17 03/12/17 03/12/17 03/13/17 21:36 21:37 23:48 03:48 Temp 97.7 97.8 97.7 97.8 Pulse 69 69 60 53 Resp 16 16 B/P (MAP) 178/61 178/61 154/61 (92) 138/61 (86) Pulse Ox 97 94 O2 Delivery Room Air Room Air AMENA PAUL MD Mar 13, 2017 08:13
[2017-03-13] MEDS: cloNIDine HCL 0.1 MG TABLET PO SCH ×3 (09:32→20:23)
[2017-03-13 11:12] VITALS: BP 146/53
--- NOTE | 2017-03-13 11:45 | PDOC ---
Renal-Progress Notes Subjective Notes Notes NO NEW COMPLAINTS History of Present Illness Hx of present illness STABLE Vitals Vitals Vital Signs Date Time Temp Pulse Resp B/P (MAP) Pulse Ox O2 Delivery O2 Flow Rate FiO2 03/13/17 11:12 98.0 56 18 146/53 (84) 96 Room Air 98.0 Weight Weight [ ] Labs Labs Laboratory Tests Test 03/12/17 12:04 03/12/17 17:22 03/12/17 21:20 03/13/17 05:20 Glucose (Fingerstick) 373 mg/dL (70-99) 198 mg/dL (70-99) 165 mg/dL (70-99) Sodium Level 140 mmol/L (136-145) Potassium Level 4.3 mmol/L (3.5-5.1) Chloride Level 110 mmol/L (98-107) Carbon Dioxide Level 21 mmol/L (21-32) Anion Gap 9 (6-14) Blood Urea Nitrogen 28 mg/dL (7-20) Creatinine 2.7 mg/dL (0.6-1.0) Estimated GFR (Cockcroft-Gault) 18.3 Glucose Level 87 mg/dL (70-99) Calcium Level 7.4 mg/dL (8.5-10.1) Phosphorus Level 3.9 mg/dL (2.6-4.7) Magnesium Level 1.8 mg/dL (1.8-2.4) Test 03/13/17 07:31 Glucose (Fingerstick) 77 mg/dL (70-99) Micro Micro Microbiology 03/11/17 Gram Stain - Final, Complete Review of Systems Constitutional: yes: weakness, alert, oriented Ears/Nose/Throat: Yes: no symptom reported Eyes: Yes: no symptom reported Pulmonary: Yes no symptom reported Cardiovascular: Yes no symptom reported Gastrointestional: Yes: no symptom reported Genitourinary: Yes: no symptom reported Musculoskeletal: Yes: no symptom reported Skin: Yes no symptom reported Psychiatric/Neurological: Yes: no symptom reported Endocrine: Yes: no symptom reported Physical Exam General Appearance: no apparent distress Skin: warm Respiratory: bilateral CTA Heart: S1S2, RRR Abdomen: soft, bowel sounds present Extremities: pulses present, no edema, atrophy Neurology: alert, oriented Assessment Assessment IMP RAZIA WORSE WITH CR UP TO 2.7 DEHYDRATION CKD PROB STAGE 3-CR BASELINE NOT KNOW DM II - POORLY CONTROLLED HYPERGLYCEMIA LEFT FLANK WOUND-S/P I&D PLAN CONT IVF'S WITH INCREASED RATE CONT ANTIBIOTICS LABS IN AM YANIQUE HAQUE MD Mar 13, 2017 11:45
--- NOTE | 2017-03-13 13:34 | PATHOLOGY ---
PATHOLOGY REPORT * * * * * * * * FINAL DIAGNOSIS: Skin and subcutaneous tissue, "left flank abscess", debridement: - Acute abscess with associated acute and chronically inflamed granulation tissue and focal fat necrosis. - Overlying skin with no significant histopathologic diagnosis. (SKM:carisa; 03/13/2017) REPORT ELECTRONICALLY SIGNED BY: Mile Jimenez M.D. DATE/TIME: 03/13/2017 13:33 * * * * * * * * GROSS PATHOLOGY: The specimen is received in formalin, labeled "Thien Escobar, left flank abscess," and consists of a lacerated segment of mcneal skin measuring 8.6 x 1.8 x 2.5 cm with an area of ulceration measuring 0.8 x 0.7 cm. Sectioning the specimen reveals mcneal-yellow variegated cut surfaces displaying areas of possible scarred cyst lining. Fire Prevention Officer sections are submitted in cassettes A1-A2. (SDY; 03/12/2017) INITIAL CPT CODE(S): A; 41893 Professional services performed by [facility] [place] [address] Technical services performed by [facility] at [address] [place] [address] [address], [place] [address]. SPECIMEN(S) RECEIVED: A.Left flank abscess CLINICAL HISTORY: Left flank abscess PATIENT: THIEN ESCOBAR /AGE: 10 1960 (Age: 56) PATIENT #: [id number] ALT CASE #: SPECIMEN COLLECTION DATE: 03/11/2017 SPECIMEN RECEIVED DATE: 03/12/2017 [facility] - [address] [place] [address] - PHONE: [phone] * * * END OF REPORT * * *
--- NOTE | 2017-03-13 13:38 | PDOC ---
NUBIA RIVAS [employer] 03/13/17 1338: SURGICAL PROGRESS NOTE Subjective sleepy pain managed Vital Signs Vital Signs Date Time Temp Pulse Resp B/P (MAP) Pulse Ox O2 Delivery O2 Flow Rate FiO2 03/13/17 11:12 98.0 56 18 146/53 (84) 96 Room Air 98.0 I&O Intake and Output 03/14/17 06:59 Intake Total 240 ml Balance 240 ml Intake Oral 240 ml General: Alert, Oriented X3, Cooperative, No acute distress Abdomen: Soft, Other (wound vac in place to left flank) Labs Laboratory Tests Test 03/11/17 15:18 03/11/17 16:57 03/11/17 20:47 03/12/17 06:10 Glucose (Fingerstick) 236 mg/dL (70-99) 289 mg/dL (70-99) 353 mg/dL (70-99) Sodium Level 135 mmol/L (136-145) Potassium Level 4.7 mmol/L (3.5-5.1) Chloride Level 105 mmol/L (98-107) Carbon Dioxide Level 21 mmol/L (21-32) Anion Gap 9 (6-14) Blood Urea Nitrogen 23 mg/dL (7-20) Creatinine 2.6 mg/dL (0.6-1.0) Estimated GFR (Cockcroft-Gault) 19.1 Glucose Level 355 mg/dL (70-99) Calcium Level 8.2 mg/dL (8.5-10.1) Triglycerides Level 139 mg/dL (0-150) Cholesterol Level 199 mg/dL (0-200) LDL Cholesterol, Calculated 127 mg/dL (0-100) VLDL Cholesterol, Calculated 28 mg/dL (0-40) Non-HDL Cholesterol Calculated 155 mg/dL (0-129) HDL Cholesterol 44 mg/dL (40-60) Cholesterol/HDL Ratio 4.5 Test 03/12/17 07:23 03/12/17 12:04 03/12/17 17:22 03/12/17 21:20 Glucose (Fingerstick) 346 mg/dL (70-99) 373 mg/dL (70-99) 198 mg/dL (70-99) 165 mg/dL (70-99) Test 03/13/17 05:20 03/13/17 07:31 03/13/17 11:41 Sodium Level 140 mmol/L (136-145) Potassium Level 4.3 mmol/L (3.5-5.1) Chloride Level 110 mmol/L (98-107) Carbon Dioxide Level 21 mmol/L (21-32) Anion Gap 9 (6-14) Blood Urea Nitrogen 28 mg/dL (7-20) Creatinine 2.7 mg/dL (0.6-1.0) Estimated GFR (Cockcroft-Gault) 18.3 Glucose Level 87 mg/dL (70-99) Calcium Level 7.4 mg/dL (8.5-10.1) Phosphorus Level 3.9 mg/dL (2.6-4.7) Magnesium Level 1.8 mg/dL (1.8-2.4) Glucose (Fingerstick) 77 mg/dL (70-99) 149 mg/dL (70-99) Laboratory Tests Test 03/12/17 17:22 03/12/17 21:20 03/13/17 05:20 03/13/17 07:31 Glucose (Fingerstick) 198 mg/dL (70-99) 165 mg/dL (70-99) 77 mg/dL (70-99) Sodium Level 140 mmol/L (136-145) Potassium Level 4.3 mmol/L (3.5-5.1) Chloride Level 110 mmol/L (98-107) Carbon Dioxide Level 21 mmol/L (21-32) Anion Gap 9 (6-14) Blood Urea Nitrogen 28 mg/dL (7-20) Creatinine 2.7 mg/dL (0.6-1.0) Estimated GFR (Cockcroft-Gault) 18.3 Glucose Level 87 mg/dL (70-99) Calcium Level 7.4 mg/dL (8.5-10.1) Phosphorus Level 3.9 mg/dL (2.6-4.7) Magnesium Level 1.8 mg/dL (1.8-2.4) Test 03/13/17 11:41 Glucose (Fingerstick) 149 mg/dL (70-99) Problem List Problems Medical Problems: (1) Acute renal failure Status: Acute (2) Hyperglycemia Status: Acute (3) Skin abscess Status: Acute Assessment/Plan s/p I&D wound vac, continue Problems: TIMBO CARROLL MD 03/13/17 1616: SURGICAL PROGRESS NOTE Assessment/Plan as above no new surgical recs Problems: NUBIA RIVAS APRN Mar 13, 2017 13:38 TIMBO CARROLL MD Mar 13, 2017 16:16
[2017-03-13 14:59] VITALS: BP 133/49
[2017-03-13 19:35] VITALS: BP 144/60
[2017-03-13] MEDS: ATORVASTATIN CALCIUM 40 MG TABLET. PO SCH (20:22)
[2017-03-13] MEDS: ATENOLOL 50 MG TABLET. PO SCH (20:23)
[2017-03-13] MEDS: amLODIPine BESYLATE 10 MG TABLET PO SCH (20:23)
[2017-03-13] MEDS ORDERED: INSULIN DETEMIR 300 UNITS/3 ML INSULN.PEN. SQ SCH (21:00)
[2017-03-13 23:35] VITALS: BP 138/63
[2017-03-14] MEDS: PIPERACILLIN/TAZOBACTAM 2.25 GM in IV NORMAL SALINE 50ML 50 ML IV SCH ×5 (00:13→23:17)
[2017-03-14] MEDS: IV NORMAL SALINE 1000ML BAG 1,000 ML IV SCH ×4 (03:23→20:08)
[2017-03-14 03:50] VITALS: BP 147/57
[2017-03-14] MEDS: cloNIDine HCL 0.1 MG TABLET PO SCH ×3 (05:55→20:09)
[2017-03-14 07:00] VITALS: BP 133/65
[2017-03-14] MEDS: INSULIN ASPART 300 UNITS/3 ML INSULN.PEN SQ SCH ×6 (07:30→16:37)
--- NOTE | 2017-03-14 09:24 | PDOC ---
PROGRESS NOTES Subjective Subjective Patient without complaint, denies pain. Objective Objective Vital Signs Date Time Temp Pulse Resp B/P (MAP) Pulse Ox O2 Delivery O2 Flow Rate FiO2 03/14/17 07:00 98.2 60 24 133/65 (87) 96 Room Air 98.2 Physical Exam Abdomen: Normal bowel sounds, Soft, No tenderness Heart: Regular rate Extremities: No edema General: Alert, Oriented X3, No acute distress Lungs: Clear to auscultation Skin: Other (wound vac in place) Assessment Assessment Problems Medical Problems: (1) Acute renal failure Status: Acute (2) Hyperglycemia Status: Acute (3) Skin abscess Status: Acute Plan Plan of Care 1. Abscess with MSSA - improving after I&D, continue Zosyn and wound vac. 2. acute renal failure with probably CKD - lab from this AM still pending. Continue tx as per Renal. 3. DM2 - FSBG low this AM but good throughout the day yesterday. Decrease Levemir and continue mealtime Novolog. 4. HTN - control improved with addition of Clonidine, continue present meds. Lisinopril on hold due to ARF. Comment Review of Relevant I have reviewed the following items jerald (where applicable) has been applied. Labs Laboratory Tests Test 03/12/17 12:04 03/12/17 17:22 03/12/17 21:20 03/13/17 05:20 Glucose (Fingerstick) 373 mg/dL (70-99) 198 mg/dL (70-99) 165 mg/dL (70-99) Sodium Level 140 mmol/L (136-145) Potassium Level 4.3 mmol/L (3.5-5.1) Chloride Level 110 mmol/L (98-107) Carbon Dioxide Level 21 mmol/L (21-32) Anion Gap 9 (6-14) Blood Urea Nitrogen 28 mg/dL (7-20) Creatinine 2.7 mg/dL (0.6-1.0) Estimated GFR (Cockcroft-Gault) 18.3 Glucose Level 87 mg/dL (70-99) Calcium Level 7.4 mg/dL (8.5-10.1) Phosphorus Level 3.9 mg/dL (2.6-4.7) Magnesium Level 1.8 mg/dL (1.8-2.4) Test 03/13/17 07:31 03/13/17 11:41 03/13/17 16:17 03/13/17 21:52 Glucose (Fingerstick) 77 mg/dL (70-99) 149 mg/dL (70-99) 134 mg/dL (70-99) 141 mg/dL (70-99) Test 03/14/17 03:44 03/14/17 04:41 03/14/17 07:31 03/14/17 08:09 Glucose (Fingerstick) 49 mg/dL (70-99) 91 mg/dL (70-99) 63 mg/dL (70-99) 107 mg/dL (70-99) Laboratory Tests Test 03/13/17 11:41 03/13/17 16:17 03/13/17 21:52 03/14/17 03:44 Glucose (Fingerstick) 149 mg/dL (70-99) 134 mg/dL (70-99) 141 mg/dL (70-99) 49 mg/dL (70-99) Test 03/14/17 04:41 03/14/17 07:31 03/14/17 08:09 Glucose (Fingerstick) 91 mg/dL (70-99) 63 mg/dL (70-99) 107 mg/dL (70-99) Microbiology 03/11/17 Gram Stain - Final, Complete Medications Current Medications Lidocaine/Sodium Bicarbonate (Buffered Lidocaine 1%) 20 ml 1X ONCE IJ Last administered on 03/10/17 21:15; Start 03/10/17 at 21:15; Stop 03/10/17 at 21:16 ; Status DC Trimethoprim/ Sulfamethoxazole (Bactrim Ds) 1 tab ONCE ONCE PO Last administered on 03/10/17 22:00; Start 03/10/17 at 21:30; Stop 03/10/17 at 21:31 ; Status DC Ondansetron HCl (Zofran) 4 mg PRN Q8HRS PRN IV NAUSEA/VOMITING; Start 03/10/17 at 21:30; Stop 03/11/17 at 21:29; Status DC Morphine Sulfate 4 mg PRN Q2HR PRN IV PAIN; Start 03/10/17 at 21:30; Stop 03/11 at 09:38; Status DC Sodium Chloride 1,000 ml @ 150 mls/hr Q6H40M IV Last administered on 03:12; Start 03/10/17 at 21:30; Stop 03/11/17 at 10:52; Status DC Acetaminophen (Tylenol) 650 mg PRN Q4HRS PRN PO FEVER; Start 03/10/17 at 21:30 ; Stop 03/11/17 at 21:29; Status DC Sodium Chloride 1,000 ml @ 1,000 mls/hr 1X ONCE IV Last administered on 22:09; Start 03/10/17 at 21:30; Stop 03/10/17 at 22:29; Status DC Sodium Chloride 1,000 ml @ 1,000 mls/hr 1X ONCE IV Last administered on 02:23; Start 03/10/17 at 21:30; Stop 03/10/17 at 22:29; Status DC Potassium Chloride (Klor-Con) 20 meq 1X ONCE PO Last administered on 01:16; Start 03/11/17 at 00:45; Stop 03/11/17 at 00:46; Status DC Insulin Human Regular 150 unit/ Sodium Chloride 151.5 ml @ 0 mls/hr CONT PRN IV SEE I/O RECORD Last administered on 03/11/17 01:08; Start 03/11/17 at 00:30 ; Stop 03/11/17 at 07:51; Status DC Insulin Aspart (NovoLOG) 0-9 UNITS TIDWMEALS SQ Last administered on 03/12/17 17:34; Start 03/11/17 at 08:00 Dextrose (Dextrose 50%-Water Syringe) 12.5 gm PRN Q15MIN PRN IV SEE COMMENTS; Start 03/11/17 at 08:00 Insulin Aspart (NovoLOG) 10 units TIDAC SQ Last administered on 03/12/17 08:00 ; Start 03/11/17 at 08:00; Stop 03/12/17 at 08:56; Status DC Potassium Chloride (Klor-Con) 20 meq TID PO Last administered on 03/11/17 10: 33; Start 03/11/17 at 09:45; Stop 03/11/17 at 15:20; Status DC Sodium Chloride 1,000 ml @ 150 mls/hr Q6H40M IV Last administered on 03:23; Start 03/11/17 at 09:45 Piperacillin Sod/ Tazobactam Sod 3.375 gm/Sodium Chloride 50 ml @ 100 mls/hr Q6HRS IV ; Start 03/11/17 at 12:00; Status UNV Amlodipine Besylate (Norvasc) 10 mg DAILY PO ; Start 03/11/17 at 10:30; Stop at 10:50; Status DC Atenolol (Tenormin) 50 mg DAILY PO ; Start 03/11/17 at 10:30; Stop 03/11/17 at 10:50; Status DC Atorvastatin Calcium (Lipitor) 40 mg HS PO Last administered on 03/13/17 20:22 ; Start 03/11/17 at 21:00 Lisinopril (Prinivil) 40 mg DAILY PO ; Start 03/11/17 at 10:30; Stop 03/11/17 at 10:30; Status DC Insulin Detemir (Levemir) 30 units QHS SQ Last administered on 03/11/17 21:33 ; Start 03/11/17 at 21:00; Stop 03/12/17 at 08:56; Status DC Amlodipine Besylate (Norvasc) 10 mg DAILY PO ; Start 03/11/17 at 10:15; Status Cancel Piperacillin Sod/ Tazobactam Sod 2.25 gm/Sodium Chloride 50 ml @ 100 mls/hr Q6HRS IV Last administered on 03/14/17 05:55; Start 03/11/17 at 10:30 Amlodipine Besylate (Norvasc) 10 mg QHS PO Last administered on 03/13/17 20:23 ; Start 03/11/17 at 21:00 Atenolol (Tenormin) 50 mg QHS PO Last administered on 03/13/17 20:23; Start at 21:00 Ondansetron HCl (Zofran) 4 mg PRN Q6HRS PRN IV NAUSEA/VOMITING; Start 03/11/17 at 11:30; Stop 03/12/17 at 11:29; Status DC Fentanyl Citrate (Fentanyl 2ml Vial) 25 mcg PRN Q5MIN PRN IV MILD PAIN; Start 03/11/17 at 11:30; Stop 03/12/17 at 08:56; Status DC Fentanyl Citrate (Fentanyl 2ml Vial) 50 mcg PRN Q5MIN PRN IV MODERATE PAIN; Start 03/11/17 at 11:30; Stop 03/12/17 at 08:56; Status DC Morphine Sulfate 1 mg PRN Q10MIN PRN IV SEVERE PAIN; Start 03/11/17 at 11:30; Stop 03/12/17 at 11:29; Status UNV Ringer's Solution 1,000 ml @ 30 mls/hr Q24H IV Last administered on 03/11/17t 13:46; Start 03/11/17 at 11:23; Stop 03/11/17 at 23:22; Status DC Lidocaine HCl (Xylocaine-Mpf 1% Vial) 2 ml 1X PRN PRN ID IV START; Start at 11:30; Stop 03/12/17 at 11:29; Status DC Hydromorphone HCl (Dilaudid) 0.5 mg PRN Q10MIN PRN IV SEV PAIN, Second choice; Start 03/11/17 at 11:30; Stop 03/12/17 at 11:29; Status UNV Prochlorperazine Edisylate (Compazine) 5 mg PACU PRN PRN IV NAUSEA, MRX1; Start 03/11/17 at 11:30; Stop 03/12/17 at 11:29; Status DC Sevoflurane (Ultane) 60 ml STK-MED ONCE IH ; Start 03/11/17 at 14:14; Stop 03/11 at 14:15; Status DC Midazolam HCl (Versed) 2 mg STK-MED ONCE .ROUTE ; Start 03/11/17 at 14:14; Stop 03/11/17 at 14:15; Status DC Fentanyl Citrate (Fentanyl 2ml Vial) 100 mcg STK-MED ONCE .ROUTE ; Start at 14:14; Stop 03/11/17 at 14:15; Status DC Propofol 20 ml @ As Directed STK-MED ONCE IV ; Start 03/11/17 at 14:15; Stop at 14:16; Status DC Ondansetron HCl (Zofran) 4 mg STK-MED ONCE .ROUTE ; Start 03/11/17 at 14:15; Stop 03/11/17 at 14:16; Status DC Dexamethasone Sodium Phosphate (Decadron) 20 mg STK-MED ONCE .ROUTE ; Start at 14:15; Stop 03/11/17 at 14:16; Status DC Lidocaine HCl (Lidocaine Pf 2% Vial) 5 ml STK-MED ONCE .ROUTE ; Start 03/11/17 at 14:26; Stop 03/11/17 at 14:27; Status DC Labetalol HCl (Normodyne) 20 mg STK-MED ONCE .ROUTE ; Start 03/11/17 at 14:31; Stop 03/11/17 at 14:32; Status DC Cellulose 1 each STK-MED ONCE .ROUTE Last administered on 03/11/17 14:54; Start 03/11/17 at 13:54; Stop 03/11/17 at 14:54; Status DC Ephedrine Sulfate 50 mg STK-MED ONCE IV ; Start 03/11/17 at 14:56; Stop at 14:57; Status DC Neomycin/ Polymyxin/ Bacitracin (Triple Antibiotic Ointment) 1 pkt STK-MED ONCE TP ; Start 03/11/17 at 14:20; Stop 03/11/17 at 15:20; Status DC Potassium Chloride (Klor-Con) 20 meq TIDWMEALS PO Last administered on 08:00; Start 03/11/17 at 17:00; Stop 03/12/17 at 08:56; Status DC Insulin Aspart (NovoLOG VIAL) 100 unit STK-MED ONCE SQ ; Start 03/11/17 at 15:55 ; Stop 03/11/17 at 15:56; Status DC Insulin Aspart (NovoLOG VIAL) 5 unit ONCE ONCE SQ Last administered on 16:02; Start 03/11/17 at 16:15; Stop 03/11/17 at 16:16; Status DC Insulin Aspart (NovoLOG) 10 units 1X ONCE SQ Last administered on 03/11/17 21 :48; Start 03/11/17 at 21:45; Stop 03/11/17 at 21:46; Status DC Insulin Aspart (NovoLOG) 20 units TIDAC SQ Last administered on 03/12/17 17:35 ; Start 03/12/17 at 11:30; Stop 03/13/17 at 08:09; Status DC Insulin Detemir (Levemir) 50 units QHS SQ Last administered on 03/12/17 22:02 ; Start 03/12/17 at 21:00; Stop 03/13/17 at 08:09; Status DC Insulin Aspart (NovoLOG) 15 units TIDAC SQ Last administered on 03/13/17 17:35 ; Start 03/13/17 at 11:30 Insulin Detemir (Levemir) 40 units QHS SQ Last administered on 03/13/17 20:28 ; Start 03/13/17 at 21:00 Clonidine HCl (Catapres) 0.1 mg Q8HRS PO Last administered on 03/13/17 20:23; Start 03/13/17 at 08:15 Active Scripts Active Reported Lantus Solostar (Insulin Glargine,Hum.rec.anlog) 100 Unit/1 Ml Insuln.pen 25 Unit SQ HS Novolog (Insulin Aspart) 100 Unit/1 Ml Vial Unknown Dose SQ TIDWMEALS Atenolol 50 Mg Tablet 50 Mg PO DAILY Amlodipine Besylate 10 Mg Tablet 10 Mg PO DAILY Atorvastatin Calcium 40 Mg Tablet 40 Mg PO HS Lisinopril 40 Mg Tablet 40 Mg PO DAILY Vitals/I & O Vital Sign - Last 24 Hours 03/13/17 03/13/17 03/13/17 03/13/17 09:32 11:12 14:59 15:01 Temp 98.0 97.7 98.0 97.7 Pulse 52 56 55 55 Resp 18 18 B/P (MAP) 133/60 146/53 (84) 133/49 (77) 133/49 Pulse Ox 96 96 O2 Delivery Room Air Room Air 03/13/17 03/13/17 03/13/17 03/13/17 19:35 20:00 20:23 20:23 Temp 97.8 97.8 Pulse 60 55 55 Resp 18 B/P (MAP) 144/60 (88) 133/49 133/49 Pulse Ox 96 O2 Delivery Room Air Room Air 03/13/17 03/13/17 03/14/17 03/14/17 20:23 23:35 03:50 07:00 Temp 97.6 97.6 98.2 97.6 97.6 98.2 Pulse 55 51 51 60 Resp 18 16 24 B/P (MAP) 133/49 138/63 (88) 147/57 (87) 133/65 (87) Pulse Ox 99 94 96 O2 Delivery Room Air Room Air Room Air AMENA PAUL MD Mar 14, 2017 09:24
[2017-03-14 09:50] LABS: CALCIUM 7.7 mg/dL (8.5-10.1); CREATININE 3.1 mg/dL (0.6-1.0); GFR 15.6; POTASSIUM 4.8 mmol/L (3.5-5.1)
[2017-03-14 11:00] VITALS: BP 140/69
--- NOTE | 2017-03-14 11:30 | PDOC ---
Renal-Progress Notes Subjective Notes Notes NO NEW COMPLAINTS History of Present Illness Hx of present illness STABLE Vitals Vitals Vital Signs Date Time Temp Pulse Resp B/P (MAP) Pulse Ox O2 Delivery O2 Flow Rate FiO2 03/14/17 07:00 98.2 60 24 133/65 (87) 96 Room Air 98.2 Weight Weight [ ] I.O. Intake and Output Intake and Output 03/15/17 07:00 Intake Total 820 ml Output Total 600 ml Balance 220 ml Intake Oral 820 ml Output Urine Total 600 ml # Bowel Movements 3 Labs Labs Laboratory Tests Test 03/13/17 11:41 03/13/17 16:17 03/13/17 21:52 03/14/17 03:44 Glucose (Fingerstick) 149 mg/dL (70-99) 134 mg/dL (70-99) 141 mg/dL (70-99) 49 mg/dL (70-99) Test 03/14/17 04:41 03/14/17 07:31 03/14/17 08:09 03/14/17 09:00 Glucose (Fingerstick) 91 mg/dL (70-99) 63 mg/dL (70-99) 107 mg/dL (70-99) Sodium Level 141 mmol/L (136-145) Potassium Level 4.8 mmol/L (3.5-5.1) Chloride Level 112 mmol/L (98-107) Carbon Dioxide Level 20 mmol/L (21-32) Anion Gap 9 (6-14) Blood Urea Nitrogen 27 mg/dL (7-20) Creatinine 3.1 mg/dL (0.6-1.0) Estimated GFR (Cockcroft-Gault) 15.6 Glucose Level 136 mg/dL (70-99) Calcium Level 7.7 mg/dL (8.5-10.1) Test 03/14/17 10:40 Glucose (Fingerstick) 158 mg/dL (70-99) Micro Micro Microbiology 03/11/17 Gram Stain - Final, Complete Review of Systems Constitutional: yes: weakness, alert, oriented Ears/Nose/Throat: Yes: no symptom reported Eyes: Yes: no symptom reported Pulmonary: Yes no symptom reported Cardiovascular: Yes no symptom reported Gastrointestional: Yes: no symptom reported Genitourinary: Yes: no symptom reported Musculoskeletal: Yes: no symptom reported Skin: Yes no symptom reported Psychiatric/Neurological: Yes: no symptom reported Endocrine: Yes: no symptom reported Physical Exam General Appearance: no apparent distress Skin: warm Respiratory: bilateral CTA Heart: S1S2, RRR Abdomen: soft, bowel sounds present Extremities: pulses present, no edema, atrophy Neurology: alert, oriented Assessment Assessment IMP RAZIA WORSE WITH CR UP TO 3.1 DEHYDRATION CKD PROB STAGE 3-CR BASELINE NOT KNOW DM II - POORLY CONTROLLED HYPERGLYCEMIA LEFT FLANK WOUND-S/P I&D PLAN CONT IVF'S CHECK UA BLADDER SCAN WNL WILL CHECK RENAL SONOGRAM CONT ANTIBIOTICS LABS IN AM YANIQUE HAQUE MD Mar 14, 2017 11:30
--- NOTE | 2017-03-14 13:22 | RAD ---
Examination: Ultrasound kidneys History: History of acute renal insufficiency. Comparison: None available Findings: The right kidney measures 11.6 x 5.2 x 5.5 cm. The left kidney measures 10.8 x 4 .8 x 5.5 cm. No evidence of hydronephrosis. The urinary bladder is mildly distended. Impression: Unremarkable visualized exam.
[2017-03-14 13:59] LABS: BILIRUBIN,URINE NEGATIVE (NEG); GLUCOSE,URINE 250 mg/dL (NEG); NITRITE,URINE NEGATIVE (NEG); PROTEIN,URINE 100 mg/dL (NEG-TRACE); UROBILINOGEN,URINE 0.2 mg/dL (0.2 mg/dL)
[2017-03-14 14:16] LABS: BACTERIA,URINE 0 /HPF (0-FEW); RBC,URINE RARE /HPF (0-2); SQUAMOUS EPITHELIAL CELL,UR OCC /LPF; WBC,URINE OCC /HPF (0-4)
--- NOTE | 2017-03-14 14:32 | PDOC ---
SURGICAL PROGRESS NOTE Subjective undergoing wound care Vital Signs Vital Signs Date Time Temp Pulse Resp B/P (MAP) Pulse Ox O2 Delivery O2 Flow Rate FiO2 03/14/17 11:00 97.2 66 22 140/69 (92) 96 97.2 03/14/17 08:00 Room Air I&O Intake and Output 03/15/17 07:00 Intake Total 820 ml Output Total 600 ml Balance 220 ml Intake Oral 820 ml Output Urine Total 600 ml # Bowel Movements 3 General: Alert, Oriented X3, Cooperative, No acute distress Skin: Other (wound richy, + granulation tissue) Labs Laboratory Tests Test 03/12/17 17:22 03/12/17 21:20 03/13/17 05:20 03/13/17 07:31 Glucose (Fingerstick) 198 mg/dL (70-99) 165 mg/dL (70-99) 77 mg/dL (70-99) Sodium Level 140 mmol/L (136-145) Potassium Level 4.3 mmol/L (3.5-5.1) Chloride Level 110 mmol/L (98-107) Carbon Dioxide Level 21 mmol/L (21-32) Anion Gap 9 (6-14) Blood Urea Nitrogen 28 mg/dL (7-20) Creatinine 2.7 mg/dL (0.6-1.0) Estimated GFR (Cockcroft-Gault) 18.3 Glucose Level 87 mg/dL (70-99) Calcium Level 7.4 mg/dL (8.5-10.1) Phosphorus Level 3.9 mg/dL (2.6-4.7) Magnesium Level 1.8 mg/dL (1.8-2.4) Test 03/13/17 11:41 03/13/17 16:17 03/13/17 21:52 03/14/17 03:44 Glucose (Fingerstick) 149 mg/dL (70-99) 134 mg/dL (70-99) 141 mg/dL (70-99) 49 mg/dL (70-99) Test 03/14/17 04:41 03/14/17 07:31 03/14/17 08:09 03/14/17 09:00 Glucose (Fingerstick) 91 mg/dL (70-99) 63 mg/dL (70-99) 107 mg/dL (70-99) Sodium Level 141 mmol/L (136-145) Potassium Level 4.8 mmol/L (3.5-5.1) Chloride Level 112 mmol/L (98-107) Carbon Dioxide Level 20 mmol/L (21-32) Anion Gap 9 (6-14) Blood Urea Nitrogen 27 mg/dL (7-20) Creatinine 3.1 mg/dL (0.6-1.0) Estimated GFR (Cockcroft-Gault) 15.6 Glucose Level 136 mg/dL (70-99) Calcium Level 7.7 mg/dL (8.5-10.1) Test 03/14/17 10:40 03/14/17 13:45 Glucose (Fingerstick) 158 mg/dL (70-99) Urine Color Yellow Urine Clarity Clear Urine pH 6.0 Urine Specific [place] 1.010 Urine Protein 100 mg/dL (NEG-TRACE) Urine Glucose (UA) 250 mg/dL (NEG) Urine Ketones (Stick) Negative mg/dL (NEG) Urine Blood Small (NEG) Urine Nitrite Negative (NEG) Urine Bilirubin Negative (NEG) Urine Urobilinogen Dipstick 0.2 mg/dL (0.2 mg/dL) Urine Leukocyte Esterase Negative (NEG) Urine RBC Rare /HPF (0-2) Urine WBC Occ /HPF (0-4) Urine Squamous Epithelial Cells Occ /LPF Urine Bacteria 0 /HPF (0-FEW) Laboratory Tests Test 03/13/17 16:17 03/13/17 21:52 03/14/17 03:44 03/14/17 04:41 Glucose (Fingerstick) 134 mg/dL (70-99) 141 mg/dL (70-99) 49 mg/dL (70-99) 91 mg/dL (70-99) Test 03/14/17 07:31 03/14/17 08:09 03/14/17 09:00 03/14/17 10:40 Glucose (Fingerstick) 63 mg/dL (70-99) 107 mg/dL (70-99) 158 mg/dL (70-99) Sodium Level 141 mmol/L (136-145) Potassium Level 4.8 mmol/L (3.5-5.1) Chloride Level 112 mmol/L (98-107) Carbon Dioxide Level 20 mmol/L (21-32) Anion Gap 9 (6-14) Blood Urea Nitrogen 27 mg/dL (7-20) Creatinine 3.1 mg/dL (0.6-1.0) Estimated GFR (Cockcroft-Gault) 15.6 Glucose Level 136 mg/dL (70-99) Calcium Level 7.7 mg/dL (8.5-10.1) Test 03/14/17 13:45 Urine Color Yellow Urine Clarity Clear Urine pH 6.0 Urine Specific [place] 1.010 Urine Protein 100 mg/dL (NEG-TRACE) Urine Glucose (UA) 250 mg/dL (NEG) Urine Ketones (Stick) Negative mg/dL (NEG) Urine Blood Small (NEG) Urine Nitrite Negative (NEG) Urine Bilirubin Negative (NEG) Urine Urobilinogen Dipstick 0.2 mg/dL (0.2 mg/dL) Urine Leukocyte Esterase Negative (NEG) Urine RBC Rare /HPF (0-2) Urine WBC Occ /HPF (0-4) Urine Squamous Epithelial Cells Occ /LPF Urine Bacteria 0 /HPF (0-FEW) Problem List Problems Medical Problems: (1) Acute renal failure Status: Acute (2) Hyperglycemia Status: Acute (3) Skin abscess Status: Acute Assessment/Plan continue wound care will sign off Problems: NUBIA RIVAS APRN Mar 14, 2017 14:32
[2017-03-14 15:00] VITALS: BP 136/72
[2017-03-14 19:35] VITALS: BP 158/67
[2017-03-14] MEDS: ATORVASTATIN CALCIUM 40 MG TABLET. PO SCH (20:09)
[2017-03-14] MEDS: ATENOLOL 50 MG TABLET. PO SCH (20:09)
[2017-03-14] MEDS: amLODIPine BESYLATE 10 MG TABLET PO SCH (20:10)
[2017-03-14] MEDS: INSULIN DETEMIR 300 UNITS/3 ML INSULN.PEN. SQ SCH (20:14)
[2017-03-14 23:30] VITALS: BP 161/70
[2017-03-15 03:30] VITALS: BP 139/63
[2017-03-15] MEDS: IV NORMAL SALINE 1000ML BAG 1,000 ML IV SCH ×4 (03:52→23:48)
[2017-03-15 05:10] LABS: CALCIUM 7.2 mg/dL (8.5-10.1); CREATININE 2.7 mg/dL (0.6-1.0); GFR 18.3; POTASSIUM 4.6 mmol/L (3.5-5.1)
[2017-03-15] MEDS: cloNIDine HCL 0.1 MG TABLET PO SCH ×3 (06:01→20:55)
[2017-03-15] MEDS: PIPERACILLIN/TAZOBACTAM 2.25 GM in IV NORMAL SALINE 50ML 50 ML IV SCH ×3 (06:01→17:58)
[2017-03-15] MEDS: INSULIN ASPART 300 UNITS/3 ML INSULN.PEN SQ SCH ×6 (07:30→18:09)
[2017-03-15 07:48] VITALS: BP 135/58
--- NOTE | 2017-03-15 10:44 | PDOC ---
SUBJECTIVE Subjective Pt says that she is doing well today. Has high tolerance for pain; pain well controlled. She has been urinating a lot. Pt concerned about getting in and out of her apartment when she is discharged; sister was using gait belt to help her go down the flight of stairs, but with her wound vac she is concerned that they won't be able to do that. OBJECTIVE Vital Signs Vital Signs Date Time Temp Pulse Resp B/P (MAP) Pulse Ox O2 Delivery O2 Flow Rate FiO2 03/15/17 07:48 97.8 50 19 135/58 (83) 98 Room Air 97.8 03/15/17 06:01 58 139/63 03/15/17 03:30 98.0 58 18 139/63 (88) 98 Room Air 98.0 03/14/17 23:30 98.0 66 18 161/70 (100) 98 Room Air 98.0 03/14/17 20:10 70 158/67 03/14/17 20:09 70 158/67 03/14/17 20:09 70 158/67 03/14/17 20:00 Room Air 03/14/17 19:35 97.7 70 18 158/67 (97) 97 Room Air 97.7 03/14/17 16:34 68 136/72 03/14/17 15:00 97.6 68 24 136/72 (93) 98 Room Air 97.6 03/14/17 11:00 97.2 66 22 140/69 (92) 96 97.2 I & O Intake and Output 03/16/17 06:59 Intake Total 340 ml Balance 340 ml Intake Oral 340 ml PHYSICAL EXAM Physical Exam GEN: NAD, AOx3 HEENT: MMM, EOMI, no scleral icterus/injection Cardiac: RRR, no M/R/G Lungs: CTAB, regular breathing rate and effort Abd: soft, non distended, NTTP Ext: no pitting edema/erythema LE bilaterally Neuro: CN2-12 GI ASSESSMENT/PLAN Assessment/Plan Pt is a 56yo CF admitted with acute renal failure, hyperglycemia and abscess 1. Abscess with MSSA - improving after I&D, continue Zosyn and wound vac. 2. acute renal failure with probably CKD - Renal following. Cr has improved with aggressive IVF hydration 3. DM2 - Levemir has been adjusted several times during admission. Uncontrolled hyperglycemia likely 2/2 abscess; pt doing better on home doses of Levemir 25units QHS and Novolog 15units QAC 4. HTN - moderately controlled with Clonidine 0.1mg q8h, Atenolol 50mg and Norvasc 10mg. Lisinopril on hold due to ARF. 5. HLD- pt continued on Atorvastatin 40mg Problems: COMMENT Lab Laboratory Tests Test 03/14/17 13:45 03/14/17 16:30 03/14/17 20:11 03/14/17 23:16 Urine Color Yellow Urine Clarity Clear Urine pH 6.0 Urine Specific [place] 1.010 Urine Protein 100 mg/dL (NEG-TRACE) Urine Glucose (UA) 250 mg/dL (NEG) Urine Ketones (Stick) Negative mg/dL (NEG) Urine Blood Small (NEG) Urine Nitrite Negative (NEG) Urine Bilirubin Negative (NEG) Urine Urobilinogen Dipstick 0.2 mg/dL (0.2 mg/dL) Urine Leukocyte Esterase Negative (NEG) Urine RBC Rare /HPF (0-2) Urine WBC Occ /HPF (0-4) Urine Squamous Epithelial Cells Occ /LPF Urine Bacteria 0 /HPF (0-FEW) Glucose (Fingerstick) 137 mg/dL (70-99) 171 mg/dL (70-99) 172 mg/dL (70-99) Test 03/15/17 03:45 03/15/17 08:03 Sodium Level 143 mmol/L (136-145) Potassium Level 4.6 mmol/L (3.5-5.1) Chloride Level 114 mmol/L (98-107) Carbon Dioxide Level 20 mmol/L (21-32) Anion Gap 9 (6-14) Blood Urea Nitrogen 25 mg/dL (7-20) Creatinine 2.7 mg/dL (0.6-1.0) Estimated GFR (Cockcroft-Gault) 18.3 Glucose Level 133 mg/dL (70-99) Calcium Level 7.2 mg/dL (8.5-10.1) Glucose (Fingerstick) 91 mg/dL (70-99) PATRICIO KING MD Mar 15, 2017 10:44
[2017-03-15 11:04] VITALS: BP 143/58
--- NOTE | 2017-03-15 11:40 | PDOC ---
Renal-Progress Notes Subjective Notes Notes NONE History of Present Illness Hx of present illness STABLE Vitals Vitals Vital Signs Date Time Temp Pulse Resp B/P (MAP) Pulse Ox O2 Delivery O2 Flow Rate FiO2 03/15/17 11:04 98.6 54 20 143/58 (86) 98 Room Air 98.6 Weight Weight [ ] I.O. Intake and Output Intake and Output 03/16/17 07:00 Intake Total 340 ml Balance 340 ml Intake Oral 340 ml Labs Labs Laboratory Tests Test 03/14/17 13:45 03/14/17 16:30 03/14/17 20:11 03/14/17 23:16 Urine Color Yellow Urine Clarity Clear Urine pH 6.0 Urine Specific [place] 1.010 Urine Protein 100 mg/dL (NEG-TRACE) Urine Glucose (UA) 250 mg/dL (NEG) Urine Ketones (Stick) Negative mg/dL (NEG) Urine Blood Small (NEG) Urine Nitrite Negative (NEG) Urine Bilirubin Negative (NEG) Urine Urobilinogen Dipstick 0.2 mg/dL (0.2 mg/dL) Urine Leukocyte Esterase Negative (NEG) Urine RBC Rare /HPF (0-2) Urine WBC Occ /HPF (0-4) Urine Squamous Epithelial Cells Occ /LPF Urine Bacteria 0 /HPF (0-FEW) Glucose (Fingerstick) 137 mg/dL (70-99) 171 mg/dL (70-99) 172 mg/dL (70-99) Test 03/15/17 03:45 03/15/17 08:03 03/15/17 10:57 Sodium Level 143 mmol/L (136-145) Potassium Level 4.6 mmol/L (3.5-5.1) Chloride Level 114 mmol/L (98-107) Carbon Dioxide Level 20 mmol/L (21-32) Anion Gap 9 (6-14) Blood Urea Nitrogen 25 mg/dL (7-20) Creatinine 2.7 mg/dL (0.6-1.0) Estimated GFR (Cockcroft-Gault) 18.3 Glucose Level 133 mg/dL (70-99) Calcium Level 7.2 mg/dL (8.5-10.1) Glucose (Fingerstick) 91 mg/dL (70-99) 163 mg/dL (70-99) Micro Micro Microbiology 03/11/17 Gram Stain - Final, Complete Review of Systems Constitutional: yes: weakness, alert, oriented Ears/Nose/Throat: Yes: no symptom reported Eyes: Yes: no symptom reported Pulmonary: Yes no symptom reported Cardiovascular: Yes no symptom reported Gastrointestional: Yes: no symptom reported Genitourinary: Yes: no symptom reported Musculoskeletal: Yes: no symptom reported Skin: Yes no symptom reported Psychiatric/Neurological: Yes: no symptom reported Endocrine: Yes: no symptom reported Physical Exam General Appearance: no apparent distress Skin: warm Respiratory: bilateral CTA Heart: S1S2, RRR Abdomen: soft, bowel sounds present Extremities: pulses present, no edema, atrophy Neurology: alert, oriented Assessment Assessment IMP RAZIA-BETTER WITH CR DOWN TO 2.7 DEHYDRATION CKD PROB STAGE 3-CR BASELINE NOT KNOW DM II - POORLY CONTROLLED HYPERGLYCEMIA LEFT FLANK WOUND-S/P I&D PLAN CONT IVF'S BLADDER SCAN WNL RENAL SONOGRAM NEG CONT ANTIBIOTICS LABS IN AM YANIQUE HAQUE MD Mar 15, 2017 11:40
[2017-03-15 15:55] VITALS: BP 152/59
[2017-03-15 19:54] VITALS: BP 148/49
[2017-03-15] MEDS: amLODIPine BESYLATE 10 MG TABLET PO SCH (20:55)
[2017-03-15] MEDS: ATORVASTATIN CALCIUM 40 MG TABLET. PO SCH (20:55)
[2017-03-15] MEDS: ATENOLOL 50 MG TABLET. PO SCH (20:55)
[2017-03-15] MEDS: INSULIN DETEMIR 300 UNITS/3 ML INSULN.PEN. SQ SCH (20:56)
[2017-03-15 23:11] VITALS: BP 165/67
[2017-03-16] MEDS: PIPERACILLIN/TAZOBACTAM 2.25 GM in IV NORMAL SALINE 50ML 50 ML IV SCH ×4 (01:26→17:04)
[2017-03-16] MEDS: IV NORMAL SALINE 1000ML BAG 1,000 ML IV SCH ×2 (02:58→11:20)
[2017-03-16 03:12] VITALS: BP 143/61
[2017-03-16 04:54] LABS: HEMOGLOBIN 7.7 g/dL (12.0-15.5); RED BLOOD COUNT 2.82 x10^6/uL (3.50-5.40); RED CELL DISTRIBUTION WIDTH 15.8 % (11.5-14.5); WHITE BLOOD COUNT 9.1 x10^3/uL (4.0-11.0)
[2017-03-16 05:03] LABS: CALCIUM 7.5 mg/dL (8.5-10.1); CREATININE 2.5 mg/dL (0.6-1.0); POTASSIUM 4.8 mmol/L (3.5-5.1)
[2017-03-16] MEDS: cloNIDine HCL 0.1 MG TABLET PO SCH ×3 (05:52→21:36)
[2017-03-16 07:08] VITALS: BP 136/56
[2017-03-16] MEDS: INSULIN ASPART 300 UNITS/3 ML INSULN.PEN SQ SCH ×6 (09:38→17:11)
[2017-03-16 11:12] VITALS: BP 148/55
--- NOTE | 2017-03-16 11:38 | PDOC ---
SUBJECTIVE Subjective Pt states that she is doing okay. Having increased swelling in her legs and feet. Eating okay and using restroom well. Concerns about stairs at home; PT hasn't seen her so far this weekend OBJECTIVE Vital Signs Vital Signs Date Time Temp Pulse Resp B/P (MAP) Pulse Ox O2 Delivery O2 Flow Rate FiO2 03/16/17 11:12 97.6 57 20 148/55 (86) 98 Room Air 97.6 03/16/17 07:08 97.5 56 19 136/56 (82) 98 Room Air 97.5 03/16/17 05:52 56 143/61 03/16/17 03:12 97.7 56 16 143/61 (88) 96 Room Air 97.7 03/15/17 23:11 97.7 58 16 165/67 (99) 95 Room Air 97.7 03/15/17 20:55 60 148/49 03/15/17 20:55 60 148/49 03/15/17 20:55 60 148/49 03/15/17 20:00 Room Air 03/15/17 19:54 98.2 60 20 148/49 (82) 98 Room Air 98.2 03/15/17 15:55 98.6 65 20 152/59 (90) 98 Room Air 98.6 03/15/17 15:11 65 152/59 I & O Intake and Output 03/17/17 07:00 Intake Total 120 ml Balance 120 ml Intake Oral 120 ml PHYSICAL EXAM Physical Exam GEN: NAD, AOx3 HEENT: MMM, EOMI, no scleral icterus/injection Cardiac: RRR, no M/R/G Lungs: CTAB, regular breathing rate and effort Abd: soft, non distended, NTTP Ext: 2+ pitting edema LE bilaterally Neuro: CN2-12 GI ASSESSMENT/PLAN Assessment/Plan Pt is a 56yo CF admitted with acute renal failure, hyperglycemia and abscess 1. Abscess with MSSA - improving after I&D, continue Zosyn and wound vac. 2. acute renal failure with probably CKD - Renal following. Cr has improved with aggressive IVF hydration, likely back to baseline. Pt getting more edematous, will decrease rate to 90cc/hr and leave it to Nephrology whether we D /C her fluids or not. 3. DM2 - Levemir has been adjusted several times during admission. Uncontrolled hyperglycemia likely 2/2 abscess; pt doing better on home doses of Levemir 25units QHS and Novolog 15units QAC 4. HTN - moderately controlled with Clonidine 0.1mg q8h, Atenolol 50mg and Norvasc 10mg. Lisinopril on hold due to ARF. 5. HLD- pt continued on Atorvastatin 40mg Problems: COMMENT Lab Laboratory Tests Test 03/15/17 16:11 03/16/17 04:05 03/16/17 07:36 Glucose (Fingerstick) 209 mg/dL (70-99) 98 mg/dL (70-99) White Blood Count 9.1 x10^3/uL (4.0-11.0) Red Blood Count 2.82 x10^6/uL (3.50-5.40) Hemoglobin 7.7 g/dL (12.0-15.5) Hematocrit 23.0 % (36.0-47.0) Mean Corpuscular Volume 81 fL (79-100) Mean Corpuscular Hemoglobin 27 pg (25-35) Mean Corpuscular Hemoglobin Concent 34 g/dL (31-37) Red Cell Distribution Width 15.8 % (11.5-14.5) Platelet Count 471 x10^3/uL (140-400) Sodium Level 144 mmol/L (136-145) Potassium Level 4.8 mmol/L (3.5-5.1) Chloride Level 116 mmol/L (98-107) Carbon Dioxide Level 18 mmol/L (21-32) Anion Gap 10 (6-14) Blood Urea Nitrogen 25 mg/dL (7-20) Creatinine 2.5 mg/dL (0.6-1.0) Estimated GFR (Cockcroft-Gault) 20.0 Glucose Level 86 mg/dL (70-99) Calcium Level 7.5 mg/dL (8.5-10.1) PATRICIO KING MD Mar 16, 2017 11:38
--- NOTE | 2017-03-16 12:30 | PDOC ---
Renal-Progress Notes Subjective Notes Notes NONE History of Present Illness Hx of present illness NO CHANGE Vitals Vitals Vital Signs Date Time Temp Pulse Resp B/P (MAP) Pulse Ox O2 Delivery O2 Flow Rate FiO2 03/16/17 11:12 97.6 57 20 148/55 (86) 98 Room Air 97.6 Weight Weight [ ] I.O. Intake and Output Intake and Output 03/17/17 07:00 Intake Total 120 ml Balance 120 ml Intake Oral 120 ml Labs Labs Laboratory Tests Test 03/15/17 16:11 03/16/17 04:05 03/16/17 07:36 03/16/17 11:27 Glucose (Fingerstick) 209 mg/dL (70-99) 98 mg/dL (70-99) 220 mg/dL (70-99) White Blood Count 9.1 x10^3/uL (4.0-11.0) Red Blood Count 2.82 x10^6/uL (3.50-5.40) Hemoglobin 7.7 g/dL (12.0-15.5) Hematocrit 23.0 % (36.0-47.0) Mean Corpuscular Volume 81 fL (79-100) Mean Corpuscular Hemoglobin 27 pg (25-35) Mean Corpuscular Hemoglobin Concent 34 g/dL (31-37) Red Cell Distribution Width 15.8 % (11.5-14.5) Platelet Count 471 x10^3/uL (140-400) Sodium Level 144 mmol/L (136-145) Potassium Level 4.8 mmol/L (3.5-5.1) Chloride Level 116 mmol/L (98-107) Carbon Dioxide Level 18 mmol/L (21-32) Anion Gap 10 (6-14) Blood Urea Nitrogen 25 mg/dL (7-20) Creatinine 2.5 mg/dL (0.6-1.0) Estimated GFR (Cockcroft-Gault) 20.0 Glucose Level 86 mg/dL (70-99) Calcium Level 7.5 mg/dL (8.5-10.1) Micro Micro Microbiology 03/11/17 Gram Stain - Final, Complete Review of Systems Constitutional: yes: weakness, alert, oriented Ears/Nose/Throat: Yes: no symptom reported Eyes: Yes: no symptom reported Pulmonary: Yes no symptom reported Cardiovascular: Yes no symptom reported Gastrointestional: Yes: no symptom reported Genitourinary: Yes: no symptom reported Musculoskeletal: Yes: no symptom reported Skin: Yes no symptom reported Psychiatric/Neurological: Yes: no symptom reported Endocrine: Yes: no symptom reported Physical Exam General Appearance: no apparent distress Skin: warm Respiratory: bilateral CTA Heart: S1S2, RRR Abdomen: soft, bowel sounds present Extremities: pulses present, no edema, atrophy Neurology: alert, oriented Assessment Assessment IMP RAZIA-BETTER WITH CR DOWN TO 2.5 DEHYDRATION CKD PROB STAGE 3-CR BASELINE NOT KNOW DM II - POORLY CONTROLLED HYPERGLYCEMIA LEFT FLANK WOUND-S/P I&D PLAN CONT IVF'S CONT ANTIBIOTICS LABS IN AM YANIQUE HAQUE MD Mar 16, 2017 12:30
[2017-03-16 15:47] VITALS: BP 170/61
[2017-03-16 19:51] VITALS: BP 147/56
[2017-03-16] MEDS: amLODIPine BESYLATE 10 MG TABLET PO SCH (21:36)
[2017-03-16] MEDS: ATORVASTATIN CALCIUM 40 MG TABLET. PO SCH (21:36)
[2017-03-16] MEDS: ATENOLOL 50 MG TABLET. PO SCH (21:37)
[2017-03-16] MEDS: INSULIN DETEMIR 300 UNITS/3 ML INSULN.PEN. SQ SCH (21:42)
[2017-03-16 23:19] VITALS: BP 165/53
[2017-03-17] VITALS (7 sets, daily range): BP systolic 134–177; BP diastolic 49–68
[2017-03-17] MEDS: PIPERACILLIN/TAZOBACTAM 2.25 GM in IV NORMAL SALINE 50ML 50 ML IV SCH ×2 (00:58→05:31)
[2017-03-17] MEDS: IV NORMAL SALINE 1000ML BAG 1,000 ML IV SCH ×2 (01:00→11:18)
[2017-03-17] MEDS: cloNIDine HCL 0.1 MG TABLET PO SCH ×3 (05:30→21:29)
[2017-03-17 05:45] LABS: CALCIUM 7.7 mg/dL (8.5-10.1); CREATININE 2.6 mg/dL (0.6-1.0); GFR 19.1; POTASSIUM 4.8 mmol/L (3.5-5.1)
[2017-03-17] MEDS: INSULIN ASPART 300 UNITS/3 ML INSULN.PEN SQ SCH ×6 (07:30→18:59)
--- NOTE | 2017-03-17 07:58 | PDOC ---
PROGRESS NOTES Subjective Subjective Patient reports she is not sure she is strong enough to return home, difficulty walking around and going up stairs, especially carrying the wound vac. Objective Objective Vital Signs Date Time Temp Pulse Resp B/P (MAP) Pulse Ox O2 Delivery O2 Flow Rate FiO2 03/17/17 05:30 55 150/64 03/17/17 03:15 98.1 18 96 Room Air 98.1 Physical Exam Abdomen: Normal bowel sounds, Soft, No tenderness, Other (wound vac in place, no erythema surrounding) Heart: Regular rate Extremities: Other (mild nonpitting edema bilateral LE's) General: Alert, Oriented X3, No acute distress Lungs: Clear to auscultation Assessment Assessment Problems Medical Problems: (1) Acute renal failure Status: Acute (2) Hyperglycemia Status: Acute (3) Skin abscess Status: Acute Plan Plan of Care 1. Abscess left flank with MSSA - much improved, will change to po abx, continue wound care. 2. acute renal failure with CKD - creatinine without significant improvement despite days of IVF. Maybe at new baseline? Continue tx as per Renal. 3. DM2 - a little low this morning, will decrease Levemir slightly, overall control is much improved. 4. HTN - BP fairly well controlled with present meds. If unable to resume PERLA may need increased Clonidine. 5. discharge planning - originally thought patient could return home with wound vac but now PT recommending consideration of [facility] due to patient's debility. Discussed with patient who is not sure whether she could manage at home with the wound vac. Continue therapy, SW consulted to help with plans. Anticipate discharge tomorrow if all in agreement. Comment Review of Relevant I have reviewed the following items jerald (where applicable) has been applied. Labs Laboratory Tests Test 03/15/17 08:03 03/15/17 10:57 03/15/17 16:11 03/15/17 20:41 Glucose (Fingerstick) 91 mg/dL (70-99) 163 mg/dL (70-99) 209 mg/dL (70-99) 90 mg/dL (70-99) Test 03/16/17 04:05 03/16/17 07:36 03/16/17 11:27 03/16/17 15:59 White Blood Count 9.1 x10^3/uL (4.0-11.0) Red Blood Count 2.82 x10^6/uL (3.50-5.40) Hemoglobin 7.7 g/dL (12.0-15.5) Hematocrit 23.0 % (36.0-47.0) Mean Corpuscular Volume 81 fL (79-100) Mean Corpuscular Hemoglobin 27 pg (25-35) Mean Corpuscular Hemoglobin Concent 34 g/dL (31-37) Red Cell Distribution Width 15.8 % (11.5-14.5) Platelet Count 471 x10^3/uL (140-400) Sodium Level 144 mmol/L (136-145) Potassium Level 4.8 mmol/L (3.5-5.1) Chloride Level 116 mmol/L (98-107) Carbon Dioxide Level 18 mmol/L (21-32) Anion Gap 10 (6-14) Blood Urea Nitrogen 25 mg/dL (7-20) Creatinine 2.5 mg/dL (0.6-1.0) Estimated GFR (Cockcroft-Gault) 20.0 Glucose Level 86 mg/dL (70-99) Calcium Level 7.5 mg/dL (8.5-10.1) Glucose (Fingerstick) 98 mg/dL (70-99) 220 mg/dL (70-99) 219 mg/dL (70-99) Test 03/16/17 20:51 03/17/17 04:25 Glucose (Fingerstick) 150 mg/dL (70-99) Sodium Level 145 mmol/L (136-145) Potassium Level 4.8 mmol/L (3.5-5.1) Chloride Level 116 mmol/L (98-107) Carbon Dioxide Level 18 mmol/L (21-32) Anion Gap 11 (6-14) Blood Urea Nitrogen 25 mg/dL (7-20) Creatinine 2.6 mg/dL (0.6-1.0) Estimated GFR (Cockcroft-Gault) 19.1 Glucose Level 70 mg/dL (70-99) Calcium Level 7.7 mg/dL (8.5-10.1) Laboratory Tests Test 03/16/17 11:27 03/16/17 15:59 03/16/17 20:51 03/17/17 04:25 Glucose (Fingerstick) 220 mg/dL (70-99) 219 mg/dL (70-99) 150 mg/dL (70-99) Sodium Level 145 mmol/L (136-145) Potassium Level 4.8 mmol/L (3.5-5.1) Chloride Level 116 mmol/L (98-107) Carbon Dioxide Level 18 mmol/L (21-32) Anion Gap 11 (6-14) Blood Urea Nitrogen 25 mg/dL (7-20) Creatinine 2.6 mg/dL (0.6-1.0) Estimated GFR (Cockcroft-Gault) 19.1 Glucose Level 70 mg/dL (70-99) Calcium Level 7.7 mg/dL (8.5-10.1) Microbiology 03/11/17 Gram Stain - Final, Complete Medications Current Medications Lidocaine/Sodium Bicarbonate (Buffered Lidocaine 1%) 20 ml 1X ONCE IJ Last administered on 03/10/17 21:15; Start 03/10/17 at 21:15; Stop 03/10/17 at 21:16 ; Status DC Trimethoprim/ Sulfamethoxazole (Bactrim Ds) 1 tab ONCE ONCE PO Last administered on 03/10/17 22:00; Start 03/10/17 at 21:30; Stop 03/10/17 at 21:31 ; Status DC Ondansetron HCl (Zofran) 4 mg PRN Q8HRS PRN IV NAUSEA/VOMITING; Start 03/10/17 at 21:30; Stop 03/11/17 at 21:29; Status DC Morphine Sulfate 4 mg PRN Q2HR PRN IV PAIN; Start 03/10/17 at 21:30; Stop 03/11 at 09:38; Status DC Sodium Chloride 1,000 ml @ 150 mls/hr Q6H40M IV Last administered on 03:12; Start 03/10/17 at 21:30; Stop 03/11/17 at 10:52; Status DC Acetaminophen (Tylenol) 650 mg PRN Q4HRS PRN PO FEVER; Start 03/10/17 at 21:30 ; Stop 03/11/17 at 21:29; Status DC Sodium Chloride 1,000 ml @ 1,000 mls/hr 1X ONCE IV Last administered on 22:09; Start 03/10/17 at 21:30; Stop 03/10/17 at 22:29; Status DC Sodium Chloride 1,000 ml @ 1,000 mls/hr 1X ONCE IV Last administered on 02:23; Start 03/10/17 at 21:30; Stop 03/10/17 at 22:29; Status DC Potassium Chloride (Klor-Con) 20 meq 1X ONCE PO Last administered on 01:16; Start 03/11/17 at 00:45; Stop 03/11/17 at 00:46; Status DC Insulin Human Regular 150 unit/ Sodium Chloride 151.5 ml @ 0 mls/hr CONT PRN IV SEE I/O RECORD Last administered on 03/11/17 01:08; Start 03/11/17 at 00:30 ; Stop 03/11/17 at 07:51; Status DC Insulin Aspart (NovoLOG) 0-9 UNITS TIDWMEALS SQ Last administered on 03/16/17 17:11; Start 03/11/17 at 08:00 Dextrose (Dextrose 50%-Water Syringe) 12.5 gm PRN Q15MIN PRN IV SEE COMMENTS; Start 03/11/17 at 08:00 Insulin Aspart (NovoLOG) 10 units TIDAC SQ Last administered on 03/12/17 08:00 ; Start 03/11/17 at 08:00; Stop 03/12/17 at 08:56; Status DC Potassium Chloride (Klor-Con) 20 meq TID PO Last administered on 03/11/17 10: 33; Start 03/11/17 at 09:45; Stop 03/11/17 at 15:20; Status DC Sodium Chloride 1,000 ml @ 90 mls/hr Q11H7M IV Last administered on 03/17/17 01:00; Start 03/11/17 at 09:45 Piperacillin Sod/ Tazobactam Sod 3.375 gm/Sodium Chloride 50 ml @ 100 mls/hr Q6HRS IV ; Start 03/11/17 at 12:00; Status UNV Amlodipine Besylate (Norvasc) 10 mg DAILY PO ; Start 03/11/17 at 10:30; Stop at 10:50; Status DC Atenolol (Tenormin) 50 mg DAILY PO ; Start 03/11/17 at 10:30; Stop 03/11/17 at 10:50; Status DC Atorvastatin Calcium (Lipitor) 40 mg HS PO Last administered on 03/16/17 21:36 ; Start 03/11/17 at 21:00 Lisinopril (Prinivil) 40 mg DAILY PO ; Start 03/11/17 at 10:30; Stop 03/11/17 at 10:30; Status DC Insulin Detemir (Levemir) 30 units QHS SQ Last administered on 03/11/17 21:33 ; Start 03/11/17 at 21:00; Stop 03/12/17 at 08:56; Status DC Amlodipine Besylate (Norvasc) 10 mg DAILY PO ; Start 03/11/17 at 10:15; Status Cancel Piperacillin Sod/ Tazobactam Sod 2.25 gm/Sodium Chloride 50 ml @ 100 mls/hr Q6HRS IV Last administered on 03/17/17 05:31; Start 03/11/17 at 10:30 Amlodipine Besylate (Norvasc) 10 mg QHS PO Last administered on 03/16/17 21:36 ; Start 03/11/17 at 21:00 Atenolol (Tenormin) 50 mg QHS PO Last administered on 03/16/17 21:37; Start at 21:00 Ondansetron HCl (Zofran) 4 mg PRN Q6HRS PRN IV NAUSEA/VOMITING; Start 03/11/17 at 11:30; Stop 03/12/17 at 11:29; Status DC Fentanyl Citrate (Fentanyl 2ml Vial) 25 mcg PRN Q5MIN PRN IV MILD PAIN; Start 03/11/17 at 11:30; Stop 03/12/17 at 08:56; Status DC Fentanyl Citrate (Fentanyl 2ml Vial) 50 mcg PRN Q5MIN PRN IV MODERATE PAIN; Start 03/11/17 at 11:30; Stop 03/12/17 at 08:56; Status DC Morphine Sulfate 1 mg PRN Q10MIN PRN IV SEVERE PAIN; Start 03/11/17 at 11:30; Stop 03/12/17 at 11:29; Status UNV Ringer's Solution 1,000 ml @ 30 mls/hr Q24H IV Last administered on 03/11/17 13:46; Start 03/11/17 at 11:23; Stop 03/11/17 at 23:22; Status DC Lidocaine HCl (Xylocaine-Mpf 1% Vial) 2 ml 1X PRN PRN ID IV START; Start at 11:30; Stop 03/12/17 at 11:29; Status DC Hydromorphone HCl (Dilaudid) 0.5 mg PRN Q10MIN PRN IV SEV PAIN, Second choice; Start 03/11/17 at 11:30; Stop 03/12/17 at 11:29; Status UNV Prochlorperazine Edisylate (Compazine) 5 mg PACU PRN PRN IV NAUSEA, MRX1; Start 03/11/17 at 11:30; Stop 03/12/17 at 11:29; Status DC Sevoflurane (Ultane) 60 ml STK-MED ONCE IH ; Start 03/11/17 at 14:14; Stop 03/11 at 14:15; Status DC Midazolam HCl (Versed) 2 mg STK-MED ONCE .ROUTE ; Start 03/11/17 at 14:14; Stop 03/11/17 at 14:15; Status DC Fentanyl Citrate (Fentanyl 2ml Vial) 100 mcg STK-MED ONCE .ROUTE ; Start at 14:14; Stop 03/11/17 at 14:15; Status DC Propofol 20 ml @ As Directed STK-MED ONCE IV ; Start 03/11/17 at 14:15; Stop at 14:16; Status DC Ondansetron HCl (Zofran) 4 mg STK-MED ONCE .ROUTE ; Start 03/11/17 at 14:15; Stop 03/11/17 at 14:16; Status DC Dexamethasone Sodium Phosphate (Decadron) 20 mg STK-MED ONCE .ROUTE ; Start at 14:15; Stop 03/11/17 at 14:16; Status DC Lidocaine HCl (Lidocaine Pf 2% Vial) 5 ml STK-MED ONCE .ROUTE ; Start 03/11/17 at 14:26; Stop 03/11/17 at 14:27; Status DC Labetalol HCl (Normodyne) 20 mg STK-MED ONCE .ROUTE ; Start 03/11/17 at 14:31; Stop 03/11/17 at 14:32; Status DC Cellulose 1 each STK-MED ONCE .ROUTE Last administered on 03/11/17 14:54; Start 03/11/17 at 13:54; Stop 03/11/17 at 14:54; Status DC Ephedrine Sulfate 50 mg STK-MED ONCE IV ; Start 03/11/17 at 14:56; Stop at 14:57; Status DC Neomycin/ Polymyxin/ Bacitracin (Triple Antibiotic Ointment) 1 pkt STK-MED ONCE TP ; Start 03/11/17 at 14:20; Stop 03/11/17 at 15:20; Status DC Potassium Chloride (Klor-Con) 20 meq TIDWMEALS PO Last administered on 08:00; Start 03/11/17 at 17:00; Stop 03/12/17 at 08:56; Status DC Insulin Aspart (NovoLOG VIAL) 100 unit STK-MED ONCE SQ ; Start 03/11/17 at 15:55 ; Stop 03/11/17 at 15:56; Status DC Insulin Aspart (NovoLOG VIAL) 5 unit ONCE ONCE SQ Last administered on 16:02; Start 03/11/17 at 16:15; Stop 03/11/17 at 16:16; Status DC Insulin Aspart (NovoLOG) 10 units 1X ONCE SQ Last administered on 03/11/17 21 :48; Start 03/11/17 at 21:45; Stop 03/11/17 at 21:46; Status DC Insulin Aspart (NovoLOG) 20 units TIDAC SQ Last administered on 03/12/17 17:35 ; Start 03/12/17 at 11:30; Stop 03/13/17 at 08:09; Status DC Insulin Detemir (Levemir) 50 units QHS SQ Last administered on 03/12/17 22:02 ; Start 03/12/17 at 21:00; Stop 03/13/17 at 08:09; Status DC Insulin Aspart (NovoLOG) 15 units TIDAC SQ Last administered on 03/16/17 17:10 ; Start 03/13/17 at 11:30 Insulin Detemir (Levemir) 40 units QHS SQ Last administered on 03/13/17 20:28 ; Start 03/13/17 at 21:00; Stop 03/14/17 at 09:21; Status DC Clonidine HCl (Catapres) 0.1 mg Q8HRS PO Last administered on 03/17/17 05:30; Start 03/13/17 at 08:15 Insulin Detemir (Levemir) 25 units QHS SQ Last administered on 03/16/17 21:42 ; Start 03/14/17 at 21:00 Active Scripts Active Reported Lantus Solostar (Insulin Glargine,Hum.rec.anlog) 100 Unit/1 Ml Insuln.pen 25 Unit SQ HS Novolog (Insulin Aspart) 100 Unit/1 Ml Vial Unknown Dose SQ TIDWMEALS Atenolol 50 Mg Tablet 50 Mg PO DAILY Amlodipine Besylate 10 Mg Tablet 10 Mg PO DAILY Atorvastatin Calcium 40 Mg Tablet 40 Mg PO HS Lisinopril 40 Mg Tablet 40 Mg PO DAILY Vitals/I & O Vital Sign - Last 24 Hours 03/16/17 03/16/17 03/16/17 03/16/17 08:00 11:12 15:01 15:47 Temp 97.6 97.7 97.6 97.7 Pulse 57 57 65 Resp 20 18 B/P (MAP) 148/55 (86) 148/55 170/61 (97) Pulse Ox 98 96 O2 Delivery Room Air Room Air Room Air 03/16/17 03/16/17 03/16/17 03/16/17 19:51 20:00 21:36 21:36 Temp 97.6 97.6 Pulse 65 65 65 Resp 18 B/P (MAP) 147/56 (86) 147/56 147/56 Pulse Ox 96 O2 Delivery Room Air Room Air 03/16/17 03/16/17 03/17/17 03/17/17 21:37 23:19 03:15 05:30 Temp 98.2 98.1 98.2 98.1 Pulse 65 62 55 55 Resp 20 18 B/P (MAP) 147/56 165/53 (90) 150/64 (92) 150/64 Pulse Ox 97 96 O2 Delivery Room Air Room Air AMENA PAUL MD Mar 17, 2017 07:58
[2017-03-17] MEDS: AMOXICILLIN/K CLAV 500/125MG TABLET. PO SCH ×2 (09:59→21:27)
--- NOTE | 2017-03-17 11:33 | PDOC ---
Renal-Progress Notes Subjective Notes Notes FEELS WELL History of Present Illness Hx of present illness BETTER Vitals Vitals Vital Signs Date Time Temp Pulse Resp B/P (MAP) Pulse Ox O2 Delivery O2 Flow Rate FiO2 03/17/17 10:58 97.7 61 18 168/60 (96) 98 Room Air 97.7 Weight Weight [ ] I.O. Intake and Output Intake and Output 03/18/17 07:00 Intake Total 300 ml Balance 300 ml Intake Oral 300 ml Labs Labs Laboratory Tests Test 03/16/17 15:59 03/16/17 20:51 03/17/17 04:25 03/17/17 07:55 Glucose (Fingerstick) 219 mg/dL (70-99) 150 mg/dL (70-99) 65 mg/dL (70-99) Sodium Level 145 mmol/L (136-145) Potassium Level 4.8 mmol/L (3.5-5.1) Chloride Level 116 mmol/L (98-107) Carbon Dioxide Level 18 mmol/L (21-32) Anion Gap 11 (6-14) Blood Urea Nitrogen 25 mg/dL (7-20) Creatinine 2.6 mg/dL (0.6-1.0) Estimated GFR (Cockcroft-Gault) 19.1 Glucose Level 70 mg/dL (70-99) Calcium Level 7.7 mg/dL (8.5-10.1) Test 03/17/17 10:36 Glucose (Fingerstick) 150 mg/dL (70-99) Micro Micro Microbiology 03/11/17 Gram Stain - Final, Complete Review of Systems Constitutional: yes: weakness, alert, oriented Ears/Nose/Throat: Yes: no symptom reported Eyes: Yes: no symptom reported Pulmonary: Yes no symptom reported Cardiovascular: Yes no symptom reported Gastrointestional: Yes: no symptom reported Genitourinary: Yes: no symptom reported Musculoskeletal: Yes: no symptom reported Skin: Yes no symptom reported Psychiatric/Neurological: Yes: no symptom reported Endocrine: Yes: no symptom reported Physical Exam General Appearance: no apparent distress Skin: warm Respiratory: bilateral CTA Heart: S1S2, RRR Abdomen: soft, bowel sounds present Extremities: pulses present, atrophy, edema Neurology: alert, oriented Assessment Assessment IMP RAZIA-BETTER WITH CR DOWN TO 2.6-PROB AT BASELINE DEHYDRATION-RESOLVED CKD PROB STAGE 3-CR BASELINE NOT KNOWN DM II - POORLY CONTROLLED HYPERGLYCEMIA LEFT FLANK WOUND-S/P I&D GENERALIZED EDEMA AND FLUID RETENTION PLAN STOP IVF'S START LASIX CONT ANTIBIOTICS LABS IN AM YANIQUE HAQUE MD Mar 17, 2017 11:33
[2017-03-17] MEDS ORDERED: FUROSEMIDE 40 MG/4 ML VIAL. IVP ONE (11:45)
[2017-03-17] MEDS ORDERED: INSULIN DETEMIR 300 UNITS/3 ML INSULN.PEN. SQ SCH (21:00)
[2017-03-17] MEDS: ATENOLOL 50 MG TABLET. PO SCH (21:27)
[2017-03-17] MEDS: ATORVASTATIN CALCIUM 40 MG TABLET. PO SCH (21:27)
[2017-03-17] MEDS: amLODIPine BESYLATE 10 MG TABLET PO SCH (21:28)
[2017-03-18 03:21] VITALS: BP 146/53
[2017-03-18] MEDS: cloNIDine HCL 0.1 MG TABLET PO SCH ×3 (06:04→15:54)
[2017-03-18 06:28] LABS: CALCIUM 7.6 mg/dL (8.5-10.1); CREATININE 2.5 mg/dL (0.6-1.0); MAGNESIUM 1.4 mg/dL (1.8-2.4); PHOSPHORUS 5.2 mg/dL (2.6-4.7); POTASSIUM 4.5 mmol/L (3.5-5.1)
[2017-03-18] MEDS: INSULIN ASPART 300 UNITS/3 ML INSULN.PEN SQ SCH ×4 (07:30→11:24)
[2017-03-18 07:35] VITALS: BP 125/77
[2017-03-18] MEDS ORDERED: FUROSEMIDE 40 MG TABLET. PO SCH (09:00)
--- NOTE | 2017-03-18 09:10 | PDOC ---
PROGRESS NOTES Subjective Subjective Patient without complaint, feels ready to go home today. Objective Objective Vital Signs Date Time Temp Pulse Resp B/P (MAP) Pulse Ox O2 Delivery O2 Flow Rate FiO2 03/18/17 07:35 98.1 50 20 125/77 (93) 99 Room Air 98.1 Physical Exam Abdomen: Normal bowel sounds, Soft, No tenderness Heart: Regular rate Extremities: Other (mild pitting edema bilateral LE's) General: Alert, Oriented X3, No acute distress Lungs: Clear to auscultation Assessment Assessment Problems Medical Problems: (1) Acute renal failure Status: Acute (2) Hyperglycemia Status: Acute (3) Skin abscess Status: Acute Plan Plan of Care 1. Abscess, s/p I&D - healing well. Home today on Augmentin. Home with wound vac , [facility]. 2. DM2 - well controlled, continue insulins. Patient will be given scrip for new glucose meter and test supplies so she can resume testing TID at home. Should be better able to manage her diabetes with this. 3. HTN - BP remains elevated, Clonidine increased. Lisinopril d/c due to poor renal function. 4. acute renal failure with CKD - creatinine stable but not improved. Patient given several doses of Lasix by Dr Sandoval due to fluid overload. Home on this if he recommends. 5. hyperlipidemia - resume statin she was previously on at home, scrip on chart as she reports she had run out. 6. debility - patient reports she is walking well now and feels she is about at her baseline. Does not need custodial placement at this time. Comment Review of Relevant I have reviewed the following items jerald (where applicable) has been applied. Labs Laboratory Tests Test 03/16/17 11:27 03/16/17 15:59 03/16/17 20:51 03/17/17 04:25 Glucose (Fingerstick) 220 mg/dL (70-99) 219 mg/dL (70-99) 150 mg/dL (70-99) Sodium Level 145 mmol/L (136-145) Potassium Level 4.8 mmol/L (3.5-5.1) Chloride Level 116 mmol/L (98-107) Carbon Dioxide Level 18 mmol/L (21-32) Anion Gap 11 (6-14) Blood Urea Nitrogen 25 mg/dL (7-20) Creatinine 2.6 mg/dL (0.6-1.0) Estimated GFR (Cockcroft-Gault) 19.1 Glucose Level 70 mg/dL (70-99) Calcium Level 7.7 mg/dL (8.5-10.1) Test 03/17/17 07:55 03/17/17 10:36 03/17/17 16:32 03/17/17 19:53 Glucose (Fingerstick) 65 mg/dL (70-99) 150 mg/dL (70-99) 167 mg/dL (70-99) 243 mg/dL (70-99) Test 03/18/17 05:25 03/18/17 07:32 Sodium Level 142 mmol/L (136-145) Potassium Level 4.5 mmol/L (3.5-5.1) Chloride Level 115 mmol/L (98-107) Carbon Dioxide Level 19 mmol/L (21-32) Anion Gap 8 (6-14) Blood Urea Nitrogen 24 mg/dL (7-20) Creatinine 2.5 mg/dL (0.6-1.0) Estimated GFR (Cockcroft-Gault) 20.0 Glucose Level 121 mg/dL (70-99) Calcium Level 7.6 mg/dL (8.5-10.1) Phosphorus Level 5.2 mg/dL (2.6-4.7) Magnesium Level 1.4 mg/dL (1.8-2.4) Glucose (Fingerstick) 93 mg/dL (70-99) Laboratory Tests Test 03/17/17 10:36 03/17/17 16:32 03/17/17 19:53 03/18/17 05:25 Glucose (Fingerstick) 150 mg/dL (70-99) 167 mg/dL (70-99) 243 mg/dL (70-99) Sodium Level 142 mmol/L (136-145) Potassium Level 4.5 mmol/L (3.5-5.1) Chloride Level 115 mmol/L (98-107) Carbon Dioxide Level 19 mmol/L (21-32) Anion Gap 8 (6-14) Blood Urea Nitrogen 24 mg/dL (7-20) Creatinine 2.5 mg/dL (0.6-1.0) Estimated GFR (Cockcroft-Gault) 20.0 Glucose Level 121 mg/dL (70-99) Calcium Level 7.6 mg/dL (8.5-10.1) Phosphorus Level 5.2 mg/dL (2.6-4.7) Magnesium Level 1.4 mg/dL (1.8-2.4) Test 03/18/17 07:32 Glucose (Fingerstick) 93 mg/dL (70-99) Microbiology 03/11/17 Gram Stain - Final, Complete Medications Current Medications Lidocaine/Sodium Bicarbonate (Buffered Lidocaine 1%) 20 ml 1X ONCE IJ Last administered on 03/10/17 21:15; Start 03/10/17 at 21:15; Stop 03/10/17 at 21:16 ; Status DC Trimethoprim/ Sulfamethoxazole (Bactrim Ds) 1 tab ONCE ONCE PO Last administered on 03/10/17 22:00; Start 03/10/17 at 21:30; Stop 03/10/17 at 21:31 ; Status DC Ondansetron HCl (Zofran) 4 mg PRN Q8HRS PRN IV NAUSEA/VOMITING; Start 03/10/17 at 21:30; Stop 03/11/17 at 21:29; Status DC Morphine Sulfate 4 mg PRN Q2HR PRN IV PAIN; Start 03/10/17 at 21:30; Stop 03/11 at 09:38; Status DC Sodium Chloride 1,000 ml @ 150 mls/hr Q6H40M IV Last administered on 03:12; Start 03/10/17 at 21:30; Stop 03/11/17 at 10:52; Status DC Acetaminophen (Tylenol) 650 mg PRN Q4HRS PRN PO FEVER; Start 03/10/17 at 21:30 ; Stop 03/11/17 at 21:29; Status DC Sodium Chloride 1,000 ml @ 1,000 mls/hr 1X ONCE IV Last administered on 22:09; Start 03/10/17 at 21:30; Stop 03/10/17 at 22:29; Status DC Sodium Chloride 1,000 ml @ 1,000 mls/hr 1X ONCE IV Last administered on 02:23; Start 03/10/17 at 21:30; Stop 03/10/17 at 22:29; Status DC Potassium Chloride (Klor-Con) 20 meq 1X ONCE PO Last administered on 01:16; Start 03/11/17 at 00:45; Stop 03/11/17 at 00:46; Status DC Insulin Human Regular 150 unit/ Sodium Chloride 151.5 ml @ 0 mls/hr CONT PRN IV SEE I/O RECORD Last administered on 03/11/17 01:08; Start 03/11/17 at 00:30 ; Stop 03/11/17 at 07:51; Status DC Insulin Aspart (NovoLOG) 0-9 UNITS TIDWMEALS SQ Last administered on 03/16/17 17:11; Start 03/11/17 at 08:00 Dextrose (Dextrose 50%-Water Syringe) 12.5 gm PRN Q15MIN PRN IV SEE COMMENTS; Start 03/11/17 at 08:00 Insulin Aspart (NovoLOG) 10 units TIDAC SQ Last administered on 03/12/17 08:00 ; Start 03/11/17 at 08:00; Stop 03/12/17 at 08:56; Status DC Potassium Chloride (Klor-Con) 20 meq TID PO Last administered on 03/11/17 10: 33; Start 03/11/17 at 09:45; Stop 03/11/17 at 15:20; Status DC Sodium Chloride 1,000 ml @ 90 mls/hr Q11H7M IV Last administered on 03/17/17 01:00; Start 03/11/17 at 09:45; Stop 03/17/17 at 11:35; Status DC Piperacillin Sod/ Tazobactam Sod 3.375 gm/Sodium Chloride 50 ml @ 100 mls/hr Q6HRS IV ; Start 03/11/17 at 12:00; Status UNV Amlodipine Besylate (Norvasc) 10 mg DAILY PO ; Start 03/11/17 at 10:30; Stop at 10:50; Status DC Atenolol (Tenormin) 50 mg DAILY PO ; Start 03/11/17 at 10:30; Stop 03/11/17 at 10:50; Status DC Atorvastatin Calcium (Lipitor) 40 mg HS PO Last administered on 03/17/17 21:27 ; Start 03/11/17 at 21:00 Lisinopril (Prinivil) 40 mg DAILY PO ; Start 03/11/17 at 10:30; Stop 03/11/17 at 10:30; Status DC Insulin Detemir (Levemir) 30 units QHS SQ Last administered on 03/11/17 21:33 ; Start 03/11/17 at 21:00; Stop 03/12/17 at 08:56; Status DC Amlodipine Besylate (Norvasc) 10 mg DAILY PO ; Start 03/11/17 at 10:15; Status Cancel Piperacillin Sod/ Tazobactam Sod 2.25 gm/Sodium Chloride 50 ml @ 100 mls/hr Q6HRS IV Last administered on 03/17/17 05:31; Start 03/11/17 at 10:30; Stop 03/17/17 at 07:53; Status DC Amlodipine Besylate (Norvasc) 10 mg QHS PO Last administered on 03/17/17 21:28 ; Start 03/11/17 at 21:00 Atenolol (Tenormin) 50 mg QHS PO Last administered on 03/17/17 21:27; Start at 21:00 Ondansetron HCl (Zofran) 4 mg PRN Q6HRS PRN IV NAUSEA/VOMITING; Start 03/11/17 at 11:30; Stop 03/12/17 at 11:29; Status DC Fentanyl Citrate (Fentanyl 2ml Vial) 25 mcg PRN Q5MIN PRN IV MILD PAIN; Start 03/11/17 at 11:30; Stop 03/12/17 at 08:56; Status DC Fentanyl Citrate (Fentanyl 2ml Vial) 50 mcg PRN Q5MIN PRN IV MODERATE PAIN; Start 03/11/17 at 11:30; Stop 03/12/17 at 08:56; Status DC Morphine Sulfate 1 mg PRN Q10MIN PRN IV SEVERE PAIN; Start 03/11/17 at 11:30; Stop 03/12/17 at 11:29; Status UNV Ringer's Solution 1,000 ml @ 30 mls/hr Q24H IV Last administered on 03/11/17 13:46; Start 03/11/17 at 11:23; Stop 03/11/17 at 23:22; Status DC Lidocaine HCl (Xylocaine-Mpf 1% Vial) 2 ml 1X PRN PRN ID IV START; Start at 11:30; Stop 03/12/17 at 11:29; Status DC Hydromorphone HCl (Dilaudid) 0.5 mg PRN Q10MIN PRN IV SEV PAIN, Second choice; Start 03/11/17 at 11:30; Stop 03/12/17 at 11:29; Status UNV Prochlorperazine Edisylate (Compazine) 5 mg PACU PRN PRN IV NAUSEA, MRX1; Start 03/11/17 at 11:30; Stop 03/12/17 at 11:29; Status DC Sevoflurane (Ultane) 60 ml STK-MED ONCE IH ; Start 03/11/17 at 14:14; Stop 03/11 at 14:15; Status DC Midazolam HCl (Versed) 2 mg STK-MED ONCE .ROUTE ; Start 03/11/17 at 14:14; Stop 03/11/17 at 14:15; Status DC Fentanyl Citrate (Fentanyl 2ml Vial) 100 mcg STK-MED ONCE .ROUTE ; Start at 14:14; Stop 03/11/17 at 14:15; Status DC Propofol 20 ml @ As Directed STK-MED ONCE IV ; Start 03/11/17 at 14:15; Stop at 14:16; Status DC Ondansetron HCl (Zofran) 4 mg STK-MED ONCE .ROUTE ; Start 03/11/17 at 14:15; Stop 03/11/17 at 14:16; Status DC Dexamethasone Sodium Phosphate (Decadron) 20 mg STK-MED ONCE .ROUTE ; Start at 14:15; Stop 03/11/17 at 14:16; Status DC Lidocaine HCl (Lidocaine Pf 2% Vial) 5 ml STK-MED ONCE .ROUTE ; Start 03/11/17 at 14:26; Stop 03/11/17 at 14:27; Status DC Labetalol HCl (Normodyne) 20 mg STK-MED ONCE .ROUTE ; Start 03/11/17 at 14:31; Stop 03/11/17 at 14:32; Status DC Cellulose 1 each STK-MED ONCE .ROUTE Last administered on 03/11/17t 14:54; Start 03/11/17 at 13:54; Stop 03/11/17 at 14:54; Status DC Ephedrine Sulfate 50 mg STK-MED ONCE IV ; Start 03/11/17 at 14:56; Stop at 14:57; Status DC Neomycin/ Polymyxin/ Bacitracin (Triple Antibiotic Ointment) 1 pkt STK-MED ONCE TP ; Start 03/11/17 at 14:20; Stop 03/11/17 at 15:20; Status DC Potassium Chloride (Klor-Con) 20 meq TIDWMEALS PO Last administered on 08:00; Start 03/11/17 at 17:00; Stop 03/12/17 at 08:56; Status DC Insulin Aspart (NovoLOG VIAL) 100 unit STK-MED ONCE SQ ; Start 03/11/17 at 15:55 ; Stop 03/11/17 at 15:56; Status DC Insulin Aspart (NovoLOG VIAL) 5 unit ONCE ONCE SQ Last administered on 16:02; Start 03/11/17 at 16:15; Stop 03/11/17 at 16:16; Status DC Insulin Aspart (NovoLOG) 10 units 1X ONCE SQ Last administered on 03/11/17 21 :48; Start 03/11/17 at 21:45; Stop 03/11/17 at 21:46; Status DC Insulin Aspart (NovoLOG) 20 units TIDAC SQ Last administered on 03/12/17 17:35 ; Start 03/12/17 at 11:30; Stop 03/13/17 at 08:09; Status DC Insulin Detemir (Levemir) 50 units QHS SQ Last administered on 03/12/17 22:02 ; Start 03/12/17 at 21:00; Stop 03/13/17 at 08:09; Status DC Insulin Aspart (NovoLOG) 15 units TIDAC SQ Last administered on 03/17/17 18:59 ; Start 03/13/17 at 11:30 Insulin Detemir (Levemir) 40 units QHS SQ Last administered on 03/13/17 20:28 ; Start 03/13/17 at 21:00; Stop 03/14/17 at 09:21; Status DC Clonidine HCl (Catapres) 0.1 mg Q8HRS PO Last administered on 03/18/17 06:04; Start 03/13/17 at 08:15 Insulin Detemir (Levemir) 25 units QHS SQ Last administered on 03/16/17 21:42 ; Start 03/14/17 at 21:00; Stop 03/17/17 at 07:53; Status DC Insulin Detemir (Levemir) 22 units QHS SQ Last administered on 03/17/17 21:36 ; Start 03/17/17 at 21:00 Amoxicillin/ Clavulanate Potassium (Augmentin 500/ 125mg) 1 tab BID PO Last administered on 03/17/17 21:27; Start 03/17/17 at 09:00 Furosemide (Lasix) 40 mg 1X ONCE IVP Last administered on 03/17/17 11:57; Start 03/17/17 at 11:45; Stop 03/17/17 at 11:46; Status DC Furosemide (Lasix) 40 mg DAILY PO ; Start 03/18/17 at 09:00 Active Scripts Active Reported Lantus Solostar (Insulin Glargine,Hum.rec.anlog) 100 Unit/1 Ml Insuln.pen 25 Unit SQ HS Novolog (Insulin Aspart) 100 Unit/1 Ml Vial Unknown Dose SQ TIDWMEALS Atenolol 50 Mg Tablet 50 Mg PO DAILY Amlodipine Besylate 10 Mg Tablet 10 Mg PO DAILY Atorvastatin Calcium 40 Mg Tablet 40 Mg PO HS Lisinopril 40 Mg Tablet 40 Mg PO DAILY Vitals/I & O Vital Sign - Last 24 Hours 03/17/17 03/17/17 03/17/17 03/17/17 10:18 10:58 14:00 15:02 Temp 97.7 97.8 97.7 97.8 Pulse 61 64 64 Resp 18 18 B/P (MAP) 168/60 (96) 134/54 134/54 (80) Pulse Ox 98 95 O2 Delivery Room Air Room Air Room Air 03/17/17 03/17/17 03/17/17 03/17/17 19:35 20:00 21:27 21:28 Temp 98.2 98.2 Pulse 78 78 78 Resp 16 B/P (MAP) 177/65 (102) 177/65 177/65 Pulse Ox 97 O2 Delivery Room Air Room Air 03/17/17 03/17/17 03/18/17 03/18/17 21:29 23:20 03:21 06:04 Temp 97.8 97.6 97.8 97.6 Pulse 78 67 61 61 Resp 18 18 B/P (MAP) 177/65 172/68 (102) 146/53 (84) 146/53 Pulse Ox 95 95 O2 Delivery Room Air Room Air 03/18/17 07:35 Temp 98.1 98.1 Pulse 50 Resp 20 B/P (MAP) 125/77 (93) Pulse Ox 99 O2 Delivery Room Air AMENA PAUL MD Mar 18, 2017 09:10
[2017-03-18] MEDS ORDERED: CLON0.1T12 PO (09:16)
[2017-03-18] MEDS ORDERED: AMOX1TAB10 PO (09:16)
--- NOTE | 2017-03-18 10:15 | DS ---
DATE OF DISCHARGE: 03/18/2017 CHIEF COMPLAINT: Muscle spasm. HISTORY OF PRESENT ILLNESS: The patient is a 56-year-old female with insulin-dependent diabetes who reported to the Emergency Room with the above complaint. She reported a several day history of some intermittent shaking to her upper extremities. She denied a history of seizure disorder. She denied any loss of consciousness with these symptoms. Initial evaluation in the Emergency Room showed the patient to have a blood sugar of 778. She was also in acute renal failure, and had a large abscess on the left chest wall. Treatment was initiated and she was admitted. HOSPITAL COURSE: The patient was seen in consultation by Dr. Sandoval and Dr. Kramer. On 03/11/2017, Dr. Kramer performed an I and D of the abscess on the left chest wall. A culture was done and antibiotics were initiated at admission. A wound VAC was placed after the I&D. The wound cultures were eventually positive for methicillin sensitive staph aureus. The patient was continued on Zosyn and eventually transitioned to oral Augmentin. She has had a very good response to treatment. The wound is healing well and there is no longer any erythema surrounding it, she will go home with a wound VAC and follow up in the wound care clinic for this. The patient was in acute renal failure at admission with a creatinine of 2.5. There was no baseline creatinine available, so this was treated as acute renal failure. She received several days of IV fluids with no real improvement in her lab. Dr. Sandoval was consulted and agreed with the IV fluids, a higher dose was tried, her creatinine remains stable at 2.5, but did not significantly improve. Dr. Sandoval ordered a renal ultrasound and it was unremarkable. It was felt that the patient had underlying chronic kidney disease from her years of hypertension and diabetes and that this creatinine is probably her new baseline with this. Her IV fluids were discontinued and her lab remained stable. Dr. Sandoval has given her several doses of Lasix as she did have some mild fluid overload from all the days of receiving IV fluids. She will be discharged home on oral Lasix if Dr. Sandoval recommends this. The patient's blood sugar was out of control at over 700 at admission. She reported that she had not been taking her insulin consistently. She also did not have a glucose meter or test supplies so did not know how her sugars had been running. She was initially treated with an insulin drip and had a quick improvement with this. She was then transitioned back to subcutaneous insulin. She initially required significant doses of this, but as her infection improved, her insulin need decreased significantly and she is now fairly well controlled on about the same doses of insulin as she had been advised by her previous physician. She will be given a prescription for a new glucose meter and test supplies at discharge today, so that she can follow her blood sugars more closely. The patient has hypertension and is on several medications for this. Her lisinopril was held at admission due to the renal failure and will not be resumed at this time unless Dr. Sandoval recommends this. Clonidine was started to help with blood pressure control and the dose was increased today and this will be followed as an outpatient. The patient has hyperlipidemia and was on atorvastatin. Prior to admission, she had ran out it so her lipids were mildly elevated without it. In the hospital, she had a total cholesterol of 199 and LDL of 127, triglycerides normal at 139. She will be given a new prescription for atorvastatin at discharge today. The patient reported some weakness and fatigue with walking. She was seen by physical therapy and this appears to be improving. The possibility of going to [facility] was discussed with her, but she feels she does not need this and will be able to manage at home. She will have home health for help with wound care per the wound care clinic's recommendations. FINAL DIAGNOSES: 1. Abscess of the left flank. 2. Diabetes mellitus type 2, insulin-dependent. 3. Hypertension. 4. Acute renal failure with chronic kidney disease stage 3-4. 5. Hyperlipidemia. DISCHARGE MEDICATIONS: Augmentin 875 one p.o. b.i.d. x 5 days, clonidine 0.2 mg q.8 hours, amlodipine 10 mg daily, atenolol 50 mg daily, atorvastatin 40 mg at bedtime, NovoLog insulin 10-15 units t.i.d. a.c., Lantus insulin 25 units at bedtime, followup is with Dr. Paul within 2 weeks. Follow up with Dr. Sandoval as advised. The patient was advised to get her flu shot prior to discharge today. AMENA PAUL MD DR: SERENITY/dominick JOB#: [id number] / [id number] FAVIOLA
[2017-03-18] MEDS: AMOXICILLIN/K CLAV 500/125MG TABLET. PO SCH (11:20)
[2017-03-18 11:21] VITALS: BP 141/56
--- NOTE | 2017-03-18 11:21 | PDOC ---
Renal-Progress Notes Subjective Notes Notes FEELING WELL History of Present Illness Hx of present illness STABLE Vitals Vitals Vital Signs Date Time Temp Pulse Resp B/P (MAP) Pulse Ox O2 Delivery O2 Flow Rate FiO2 03/18/17 07:35 98.1 50 20 125/77 (93) 99 Room Air 98.1 Weight Weight [ ] I.O. Intake and Output Intake and Output 03/19/17 07:00 Intake Total 300 ml Balance 300 ml Intake Oral 300 ml Labs Labs Laboratory Tests Test 03/17/17 16:32 03/17/17 19:53 03/18/17 05:25 03/18/17 07:32 Glucose (Fingerstick) 167 mg/dL (70-99) 243 mg/dL (70-99) 93 mg/dL (70-99) Sodium Level 142 mmol/L (136-145) Potassium Level 4.5 mmol/L (3.5-5.1) Chloride Level 115 mmol/L (98-107) Carbon Dioxide Level 19 mmol/L (21-32) Anion Gap 8 (6-14) Blood Urea Nitrogen 24 mg/dL (7-20) Creatinine 2.5 mg/dL (0.6-1.0) Estimated GFR (Cockcroft-Gault) 20.0 Glucose Level 121 mg/dL (70-99) Calcium Level 7.6 mg/dL (8.5-10.1) Phosphorus Level 5.2 mg/dL (2.6-4.7) Magnesium Level 1.4 mg/dL (1.8-2.4) Micro Micro Microbiology 03/11/17 Gram Stain - Final, Complete Review of Systems Constitutional: yes: weakness, alert, oriented Ears/Nose/Throat: Yes: no symptom reported Eyes: Yes: no symptom reported Pulmonary: Yes no symptom reported Cardiovascular: Yes no symptom reported Gastrointestional: Yes: no symptom reported Genitourinary: Yes: no symptom reported Musculoskeletal: Yes: no symptom reported Skin: Yes no symptom reported Psychiatric/Neurological: Yes: no symptom reported Endocrine: Yes: no symptom reported Physical Exam General Appearance: no apparent distress Skin: warm Respiratory: bilateral CTA Heart: S1S2, RRR Abdomen: soft, bowel sounds present Extremities: pulses present, atrophy, edema Neurology: alert, oriented Assessment Assessment IMP RAZIA-BETTER WITH CR DOWN TO 2.5-PROB AT BASELINE DEHYDRATION-RESOLVED CKD PROB STAGE 3-CR BASELINE NOT KNOWN DM II - POORLY CONTROLLED HYPERGLYCEMIA LEFT FLANK WOUND-S/P I&D GENERALIZED EDEMA AND FLUID RETENTION PLAN CONT LASIX SCRIPT GIVEN PT TO FOLLOW UP IN OFFICE IN ONE TO 2 MONTHS ENC FLUID RESTRICTION D/C PLANS NOTED YANIQUE HAQUE MD Mar 18, 2017 11:20
[2017-03-18 15:54] VITALS: BP 141/56
== END 2017-03-18 17:00 | disposition home health service (06) | DRG 673 ==
LOC: ER 18:02 → 6 SOUTH 21:16
PROVIDERS: ADMIT Family Medicine; ATTEND Family Medicine
PROC: 0JB60ZZ Excision of Chest Subcutaneous Tissue and Fascia, Open Approach (ICD-10-PCS; principal; 2017-03-11 12:45)
DX: N17.9 Acute kidney failure, unspecified (principal); E43 Unspecified severe protein-calorie malnutrition; E11.22 Type 2 diabetes mellitus with diabetic chronic kidney disease; L02.211 Cutaneous abscess of abdominal wall; E44.1 Mild protein-calorie malnutrition; E87.1 Hypo-osmolality and hyponatremia; L02.213 Cutaneous abscess of chest wall; E11.36 Type 2 diabetes mellitus with diabetic cataract; E11.65 Type 2 diabetes mellitus with hyperglycemia; B95.61 Methicillin susceptible Staphylococcus aureus infection as the cause of diseases classified elsewhere; N18.4 Chronic kidney disease, stage 4 (severe); G25.3 Myoclonus; M62.838 Other muscle spasm; I12.9 Hypertensive chronic kidney disease with stage 1 through stage 4 chronic kidney disease, or unspecified chronic kidney disease; E66.9 Obesity, unspecified; E78.00 Pure hypercholesterolemia, unspecified; E78.5 Hyperlipidemia, unspecified; E86.0 Dehydration; E87.6 Hypokalemia; Z79.4 Long term (current) use of insulin; Z79.899 Other long term (current) drug therapy; Z91.14 Patient's other noncompliance with medication regimen; Z88.6 Allergy status to analgesic agent; Z91.018 Allergy to other foods
CPT/HCPCS: 10060; 36415; 70450; 76770; 80048; 80053; 80061; 81001; 82962; 83735; 84100; 85025; 85027; 87071; 87075; 87186; 87205; 88304; 93005; 96360; 96361; G0480; J1100; J1815; J1940; J2250; J2405; J2543; J2704; J3010; J3490; J7030; J7120; 97110; 97116; 99285-25; J2001

== ENCOUNTER → 2017-03-24 | Outpatient (CLI) | payer OTHER ==
[2017-03-18 15:54] VITALS: BP 141/56
[~2017-03-24] MED LIST: AMLO10TA2 PO; AMOX1TAB10 PO; ATEN50TA PO; ATOR40TA59 PO; CLON0.1T12 PO; INSU100I13 SQ; INSU100V31 SQ; LISI40TA PO
== END | disposition home or self-care (01) ==
LOC: PMGWOUND 12:30
PROVIDERS: ATTEND Emergency Medicine Undersea and Hyperbaric Medicine
DX: T81.31XA Disruption of external operation (surgical) wound, not elsewhere classified, initial encounter (principal); E11.36 Type 2 diabetes mellitus with diabetic cataract; E78.00 Pure hypercholesterolemia, unspecified; I10 Essential (primary) hypertension; Y83.8 Other surgical procedures as the cause of abnormal reaction of the patient, or of later complication, without mention of misadventure at the time of the procedure
CPT/HCPCS: 97605

== ENCOUNTER → 2017-04-08 | Outpatient (CLI) | payer OTHER ==
[2017-03-18 15:54] VITALS: BP 141/56
== END | disposition home or self-care (01) ==
LOC: PMGWOUND 09:15
PROVIDERS: ATTEND Emergency Medicine Undersea and Hyperbaric Medicine
DX: T81.31XD Disruption of external operation (surgical) wound, not elsewhere classified, subsequent encounter (principal); L02.213 Cutaneous abscess of chest wall; E11.36 Type 2 diabetes mellitus with diabetic cataract; E11.22 Type 2 diabetes mellitus with diabetic chronic kidney disease; I12.9 Hypertensive chronic kidney disease with stage 1 through stage 4 chronic kidney disease, or unspecified chronic kidney disease; N18.4 Chronic kidney disease, stage 4 (severe); E78.5 Hyperlipidemia, unspecified; E66.9 Obesity, unspecified; Z79.4 Long term (current) use of insulin; Y83.8 Other surgical procedures as the cause of abnormal reaction of the patient, or of later complication, without mention of misadventure at the time of the procedure
CPT/HCPCS: 99214

== ENCOUNTER → 2017-04-15 | Outpatient (CLI) | payer OTHER ==
[2017-03-18 15:54] VITALS: BP 141/56
== END | disposition home or self-care (01) ==
LOC: PMGWOUND 10:00
PROVIDERS: ATTEND Emergency Medicine Undersea and Hyperbaric Medicine
DX: T81.31XD Disruption of external operation (surgical) wound, not elsewhere classified, subsequent encounter (principal); E11.36 Type 2 diabetes mellitus with diabetic cataract; E78.00 Pure hypercholesterolemia, unspecified; I10 Essential (primary) hypertension; E11.22 Type 2 diabetes mellitus with diabetic chronic kidney disease; I12.9 Hypertensive chronic kidney disease with stage 1 through stage 4 chronic kidney disease, or unspecified chronic kidney disease; N18.4 Chronic kidney disease, stage 4 (severe); E66.9 Obesity, unspecified; Y83.8 Other surgical procedures as the cause of abnormal reaction of the patient, or of later complication, without mention of misadventure at the time of the procedure
CPT/HCPCS: 17250